=== PATIENT | male | born 1975 | race Caucasian/White ===

== ENCOUNTER 2016-03-18 21:57 | Inpatient (IN) | payer MEDICAID ==
[~2016-03-18] VITALS: Ht 182.9 cm; Wt 84.5 kg
[~2016-03-18 21:57] MED LIST: CLON.5 PO; HYDR-3534 PO; PENI500T PO
[2016-03-18 22:00] VITALS: BP 127/84; PULSE 94; RESP 18; O2SAT 99
[2016-03-18 22:04] VITALS: O2SAT 100
[2016-03-18 22:06] VITALS: BP 128/83; PULSE 100; RESP 16; O2SAT 98
[2016-03-18] MEDS ORDERED: SODIUM CHLOR 0.9% 1000 ML INJ 1,000 ML IV ONE ×2 (22:16→23:45)
[2016-03-18 22:23] VITALS: RESP 16; O2SAT 100
[2016-03-18 22:30] VITALS: BP 109/70; PULSE 72; RESP 16; TEMP 97.2; O2SAT 100
[2016-03-18] MEDS ORDERED: SODIUM CHLORIDE 0.9% FLUSH 5 ML FLUSH IVF PRN (22:30)
[2016-03-18] MEDS ORDERED: ETOMIDATE 20 MG/10 ML VIAL IV PUSH ONE (22:30)
[2016-03-18] MEDS ORDERED: PROPOFOL 1000 MG/100 ML INJ 100 ML IV SCH (22:30)
[2016-03-18] MEDS ORDERED: ACTIVATED CHARCOAL LIQUID 25 GM/120 ML BTL PO/NG ONE (22:30)
[2016-03-18] MEDS ORDERED: ROCURONIUM INJ 50 MG/5 ML VIAL IV ONE (22:30)
--- NOTE | 2016-03-18 22:58 | RADRPT ---
EXAM DATE/TIME: 03/18/2016 20:29 [facility] COMPARISON: No previous studies available for comparison. INDICATIONS : Post intubation. MEDICAL HISTORY : None. SURGICAL HISTORY : None. ENCOUNTER: Initial ACUITY: 1 day PAIN SCORE: Non-responsive. LOCATION: chest FINDINGS: Endotracheal tube tip is in satisfactory position. NG is coiled in the stomach. There is mild basilar dependent airspace disease, left greater than right. Cardiomegaly present. CONCLUSION: 1. Endotracheal tube and nasogastric tube in satisfactory position. Cardiomegaly with basilar airspac e disease, left greater than right. Real Marie MD on March 18, 2016 at 22:55 Board Certified Radiologist. This report was verified electronically.
[2016-03-18 22:59] LABS: AUTOMATED NEUTROPHIL # 2.7 TH/MM3 (1.8-7.7); BASOPHIL # 0.1 TH/MM3 (0-0.2); EOSINOPHIL # 0.1 TH/MM3 (0-0.4); EOSINOPHIL % 1.4 % (0.0-4.0); HEMATOCRIT 39.8 % (39.0-51.0); HEMO FLAGS DIFF FINAL; LYMPH % 52.5 % (9.0-44.0); LYMPHOCYTE # 4.2 TH/MM3 (1.0-4.8); MEAN CELL VOLUME 105.6 FL (80.0-100.0); MEAN CORPUSCULAR HEMOGLOBIN 35.9 PG (27.0-34.0); MONO % 11.9 % (0.0-8.0); NEUT % 33.2 % (16.0-70.0); PLATELET COUNT 243 TH/MM3 (150-450); RED BLOOD COUNT 3.77 MIL/MM3 (4.50-5.90)
[2016-03-18 23:05] LABS: AMPHETAMINE, URINE NEG (NEG); BARBITURATES, URINE NEG (NEG); COCAINE, URINE NEG (NEG)
[2016-03-18 23:15] LABS: ANION GAP 15 MEQ/L (5-15)
[2016-03-18 23:20] LABS: ALKALINE PHOSPHATASE 81 U/L (45-117); ALT (GPT) 57 U/L (12-78); AST (GOT) 174 U/L (15-37); BICARBONATE 21.7 MEQ/L (21.0-32.0); BLOOD UREA NITROGEN 10 MG/DL (7-18); CHLORIDE 108 MEQ/L (98-107); GLOMERULAR FILTRATION RATE 66 ML/MIN (>89); POTASSIUM 3.2 MEQ/L (3.5-5.1); SODIUM (NA) 145 MEQ/L (136-145); TOTAL BILIRUBIN ADULT 0.2 MG/DL (0.2-1.0)
[2016-03-18 23:23] LABS: ACETAMINOPHEN LESS THAN 2.0 MCG/ML (10.0-30.0)
[2016-03-18 23:30] VITALS: BP 117/78; PULSE 56; RESP 16; TEMP 97; O2SAT 100
[2016-03-18] MEDS ORDERED: cefTRIAXone INJ 1,000 MG in SODIUM CHLORIDE 0.9% INJ 100 ML IV ONE (23:45)
[2016-03-18] MEDS ORDERED: AZITHROMYCIN INJ 500 MG in SODIUM CHLOR 0.9% 250 ML INJ 250 ML IV ONE (23:45)
[2016-03-19] VITALS (24 sets, daily range): BP systolic 105–140; BP diastolic 61–89; PULSE 49–98; RESP 11–18; TEMP 96.6–98.4; O2SAT 92–100
--- NOTE | 2016-03-19 00:52 | PD ---
HPI Chief Complaint: Alcohol/Drug Intoxication Time Seen by Provider: 22:16 Travel History International Travel<30 days: No Contact w/Intl Traveler<30days: No Traveled to known affect area: No History of Present Illness HPI 41-year-old male arrives to the ER by EMS. He was found face down in public. Pupils were pinpoint. His respiratory rate was about 6. Narcan was administered and the respiratory rate increased to about 16 or so the ER. His GCS remained 3 throughout the EMS transport and while in the ER. Upon arrival to the ER the patient had wide-open pupils however he had no gag reflex his GCS was 3. His O2 sat was about 99% on nonrebreather mask. Pupils were equal and reactive to light and about 4 mm at baseline. He was intubated shortly following arrival. PFSH Past Medical History Medical History: Unable to Obtain Anxiety: Yes Depression: Yes Diminished Hearing: No Psychiatric: Yes (PTSD) Immunizations Current: Yes Tetanus Vaccination: Unknown Past Surgical History Surgical History: Unable to Obtain Other Surgery: Yes ((R) leg) Social History Alcohol Use: Yes ("occasionally" BEER) Tobacco Use: Yes (4PPD) Substance Use: No (denies) Allergies-Medications (Allergen,Severity, Reaction): Coded Allergies: *MDRO Multi-Drug Resistant Organism (Verified Adverse Reaction, Unknown, 01/05/16) MRSA arm wound 09/2014. Reported Meds & Prescriptions Reported Meds & Active Scripts Active Lortab (Hydrocodone-Acetaminophen) 7.5-325 Mg Tab 1 Tab PO Q4H PRN Penicillin V Potassium 500 Mg Tab 500 Mg PO Q6H 28 Days Reported Klonopin (Clonazepam) 0.5 Mg Tab 0.5 Mg PO DIRECTED Review of Systems ROS Limitations: Clinical Condition Physical Exam Narrative GENERAL: 41-year-old male unresponsive GCS 3, well-nourished well-developed SKIN: Warm and dry. Pyloerection present. HEAD: Atraumatic. Normocephalic. EYES: Pupils equal and round. No pinpoint pupils. ENT: No nasal bleeding or discharge. Mucous membranes pink and moist. NECK: Trachea midline. No JVD. CARDIOVASCULAR: Regular rate and rhythm. No murmur appreciated. RESPIRATORY: No accessory muscle use. Clear to auscultation. Breath sounds equal bilaterally. GASTROINTESTINAL: Abdomen soft, non-tender, nondistended. Hepatic and splenic margins not palpable. MUSCULOSKELETAL: No obvious deformities. No clubbing. No cyanosis. No edema. NEUROLOGICAL: GCS 3. PSYCHIATRIC: Unable to assess. Linear traction torres in the antecubital fossae Data Data Last Documented VS Vital Signs Date Time Temp Pulse Resp B/P Pulse Ox O2 Delivery O2 Flow Rate FiO2 03/18/16 22:30 97.2 72 16 109/70 100 Ventilator 100 Orders Electrocardiogram (03/18/16 22:16) Complete Blood Count With Diff (03/18/16 22:16) Comprehensive Metabolic Panel (03/18/16 22:16) Chest, Single Ap (03/18/16 22:16) Ct Brain W/O Iv Contrast(Rout) (03/18/16 22:16) Arterial Blood Gas (Abg) (03/18/16 22:16) Blood Glucose (03/18/16 22:16) Iv Access Insert/Monitor (03/18/16 22:16) Ecg Monitoring (03/18/16 22:16) Oximetry (03/18/16 22:16) Martina-Gastric Tube Insert/Mon (03/18/16 22:16) Oxygen Administration (03/18/16 22:16) Urinary Catheter Insert/Apply (03/18/16 22:16) Psych Screen (03/18/16 22:16) Charcoal Activated Liq (Actidose-Aqua Li (03/18/16 22:30) Sodium Chloride 0.9% Flush (Ns Flush) (03/18/16 22:30) Sodium Chlor 0.9% 1000 Ml Inj (Ns 1000 M (03/18/16 22:16) Etomidate Inj (Amidate Inj) (03/18/16 22:30) Rocuronium Inj (Zemuron Inj) (03/18/16 22:30) Alcohol (Ethanol) (03/18/16 22:16) Drug Screen, Random Urine (03/18/16 22:16) Tylenol (Acetaminophen) (03/18/16 22:16) Salicylates (Aspirin) (03/18/16 22:16) Troponin I (03/18/16 22:16) Propofol 1000 Mg/100 Ml Inj (Diprivan 10 (03/18/16 22:30) Ceftriaxone Inj (Rocephin Inj) (03/18/16 23:45) Azithromycin Inj (Zithromax Inj) (03/18/16 23:45) Blood Culture (03/18/16 23:33) Sodium Chlor 0.9% 1000 Ml Inj (Ns 1000 M (03/18/16 23:45) Admit Order (Ed Use Only) (03/19/16 00:38) Labs Laboratory Tests Test 03/18/16 03/18/16 22:30 22:40 Urine Opiates Screen POS Urine Barbiturates Screen NEG Urine Amphetamines Screen NEG Urine Benzodiazepines Screen NEG Urine Cocaine Screen NEG Urine Cannabinoids Screen NEG White Blood Count 8.0 TH/MM3 Red Blood Count 3.77 MIL/MM3 Hemoglobin 13.5 GM/DL Hematocrit 39.8 % Mean Corpuscular Volume 105.6 FL Mean Corpuscular Hemoglobin 35.9 PG Mean Corpuscular Hemoglobin 34.0 % Concent Red Cell Distribution Width 13.0 % Platelet Count 243 TH/MM3 Mean Platelet Volume 7.7 FL Neutrophils (%) (Auto) 33.2 % Lymphocytes (%) (Auto) 52.5 % Monocytes (%) (Auto) 11.9 % Eosinophils (%) (Auto) 1.4 % Basophils (%) (Auto) 1.0 % Neutrophils # (Auto) 2.7 TH/MM3 Lymphocytes # (Auto) 4.2 TH/MM3 Monocytes # (Auto) 1.0 TH/MM3 Eosinophils # (Auto) 0.1 TH/MM3 Basophils # (Auto) 0.1 TH/MM3 CBC Comment DIFF FINAL Differential Comment Sodium Level 145 MEQ/L Potassium Level 3.2 MEQ/L Chloride Level 108 MEQ/L Carbon Dioxide Level 21.7 MEQ/L Anion Gap 15 MEQ/L Blood Urea Nitrogen 10 MG/DL Creatinine 1.20 MG/DL Estimat Glomerular Filtration 66 ML/MIN Rate Random Glucose 137 MG/DL Calcium Level 7.9 MG/DL Total Bilirubin 0.2 MG/DL Aspartate Amino Transf 174 U/L (AST/SGOT) Alanine Aminotransferase 57 U/L (ALT/SGPT) Alkaline Phosphatase 81 U/L Troponin I LESS THAN 0.02 NG/ML Total Protein 7.4 GM/DL Albumin 3.7 GM/DL Salicylates Level 3.4 MG/DL Acetaminophen Level LESS THAN 2.0 MCG/ML Ethyl Alcohol Level 281 MG/DL MDM Medical Decision Making Medical Screen Exam Complete: Yes Emergency Medical Condition: Yes Medical Record Reviewed: Yes Differential Diagnosis Opioid overdose, intracranial hemorrhage, nontoxic brain injury, pneumonia, respiratory failure Narrative Course CBC & BMP Diagram 03/18/16 22:40 AST 174 Tn < 0.02 Tox + opiates EtOH 281 Slicylates 3.4 APAP < 2.0 EKG reveals a sinus rhythm with normal axis intervals and a rate of 94 bpm Last [address] 03/18/162215 Signed Impressions: Service Date/Time: March 01:16 - CONCLUSION: Normal examination. Ronn Espinoza MD Chest X-Ray 03/18/162215 Signed Impressions: Service Date/Time: Friday, March 18, 2016 20:29 - CONCLUSION: 1. Endotracheal tube and nasogastric tube in satisfactory position. Cardiomegaly with basilar airspace disease, left greater than right. Real Marie MD Antibiotics started. Blood cultures started. Patient will be admitted to the intelligence manager service. Discussed with Dr. Gaines. Critical Care Narrative Aggregate critical care time was 35 minutes. Time to perform other separately billable procedures was not included in the critical care time. My time did not include minutes spent treating any other patients simultaneously or on activities that did not directly contribute to the patient's treatment. The services I provided to this patient were to treat and/or prevent clinically significant deterioration that could result in: Cardiopulmonary arrest, septic shock I provided critical care services requiring my management, as noted below: Chart data review, documentation time, medication orders and management, vital sign assessments/reviewing monitor data, ordering and reviewing lab tests, ordering and interpreting/reviewing x-rays and diagnostic studies, care of the patient and discussion of the patient with the admitting physicians. Procedures Procedure Narrative After the risks and benefits were discussed the following procedure was performed: INTUBATION: The patient was put in optimal position for the procedure. Rapid sequence intubation was initiated by me using 20 milligrams of etomidate IV and 100 milligrams of rocuronium IV. The patient was intubated with a 8-0 cuffed endotracheal tube. Tube placement was confirmed by visualization of the tube and balloon passing through the cords, capnometry and subsequent chest x-ray. Breath sounds were equal and well aerated bilaterally postintubation. No breath sounds over stomach. Patient tolerated procedure well. Diagnosis Primary Impression: Acute respiratory failure Qualified Code: J96.00 - Acute respiratory failure, unspecified whether with hypoxia or hypercapnia Additional Impressions: Altered mental status, unspecified Alcohol abuse Opiate use Admitting Information Admitting Physician Requests: Bora Perez MD Mar 19, 2016 00:52
[2016-03-19] MEDS ORDERED: SODIUM CHLORIDE 0.9% FLUSH 5 ML FLUSH IV FLUSH PRN (01:00)
[2016-03-19] MEDS ORDERED: SENNOSIDES 8.6 MG TAB PO PRN (01:00)
[2016-03-19] MEDS ORDERED: MISCELLANEOUS NURSING INFORMATION XX SCH (01:00)
[2016-03-19] MEDS ORDERED: fentaNYL DRIP 250 ML IV SCH (01:00)
[2016-03-19] MEDS ORDERED: CHLORHEXIDINE GLUCONATE 2 % 1 PACK (2 CLOTHS) TOP PRN (01:00)
[2016-03-19] MEDS ORDERED: ONDANSETRON HCL 4 MG/2 ML VIAL IV PRN (01:00)
[2016-03-19] MEDS ORDERED: THIAMINE INJ 100 MG in SODIUM CHLORIDE 0.9% INJ 100 ML IV ONE (01:00)
[2016-03-19] MEDS ORDERED: GLUCAGON 1 MG/ML VIAL OTHER PRN (01:00)
[2016-03-19] MEDS ORDERED: DEXTROSE 50% IN WATER 50 ML VIAL(D50) IV PUSH PRN (01:00)
[2016-03-19] MEDS ORDERED: ACETAMINOPHEN 325 MG TAB PO PRN (01:00)
--- NOTE | 2016-03-19 01:14 | HHI.HP ---
[facility] Service Critical Care Medicine Primary Care Physician Unknown Admission Diagnosis Unresponsive/AMS, Opioid OD Diagnosis: (1) Acute respiratory failure Diagnosis: Principal (2) Macrocytosis without anemia Diagnosis: Principal (3) Opiate use Diagnosis: Principal (4) Hypokalemia Diagnosis: Principal (5) Altered mental status, unspecified Diagnosis: Principal Chief Complaint: Found unresponsive [place] Travel History International Travel<30 Days: No Contact w/Intl Traveler <30 Da: No Traveled to Known Affected Are: No History of Present Illness This is a 41-year-old male. Date of admission 03/19/2016 past medical history includes posterior max stress disorder/depression. No history of alcohol and polysubstance abuse per records. He arrives to [facility] He was found face down in public an undisclosed location. He was given Narcan 0.4 mg 5 and routine was Ambu bag. His GCS remained 3 throughout the EMS transport and while in the ER. Upon arrival to the ER the patient had wide-open pupils however he had no gag reflex his GCS was 3. His O2 sat was about 99% on nonrebreather mask. Pupils were equal and reactive to light and about 4 mm at baseline. He was intubated shortly following arrival using 20 mg etomidate and 50 rocuronium. Laboratories revealed a macrocytosis and hypokalemia otherwise unremarkable. Toxin positive for EtOH of [address] head currently pending. 6 revealed bilateral lobe open fractures possibly aspiration. He received 500 mg azithromycin 1 g Rocephin ED for antibiotic's. Blood cultures 2 were drawn. We are asked to admit Review of Systems ROS Limitations: Intubated Past Family Social History Allergies: Coded Allergies: *MDRO Multi-Drug Resistant Organism (Verified Adverse Reaction, Unknown, 01/05/16) MRSA arm wound 09/2014. Past Medical History Posttraumatic stress disorder EtOH use Depression Opiate use Past Surgical History Right leg unknown type Acute nasal fracture Active Ordered Medications Reviewed in EMR Family History Noncontributory/not documented Social History Positive EtOH use. Positive opiate use. Physical Exam Vital Signs Vital Signs Date Time Temp Pulse Resp B/P Pulse Ox O2 Delivery O2 Flow Rate FiO2 03/18/16 22:30 97.2 72 16 109/70 100 Ventilator 100 03/18/16 22:23 16 100 Ventilator 35 03/18/16 22:23 100 Ventilator 35 03/18/16 22:12 100 03/18/16 22:06 98 99 Bag Valve 03/18/16 22:06 100 16 128/83 98 100 03/18/16 22:04 100 100 03/18/16 22:00 94 18 127/84 99 Physical Exam GENERAL: 41-year-old male, critically ill currently orotracheally intubated SKIN: Warm and dry. No rash HEAD: Atraumatic. Normocephalic. EYES: Pupils equal and round about 4 mm bilaterally and sluggish. No scleral icterus. No injection or drainage. ENT: No nasal bleeding or discharge. Mucous membranes pink and moist. NECK: Trachea midline. No JVD. Right EJ in place CARDIOVASCULAR: Tachycardic, RR. S1, S2. No S4. No murmur RESPIRATORY: Coarse crackles are appreciated bilaterally. No wheeze Breath sounds equal bilaterally. GASTROINTESTINAL: Abdomen soft, non-tender, nondistended. Hypoactive bowel sounds are present MUSCULOSKELETAL: Extremities without drift and peripheral edema. No obvious deformities. NEUROLOGICAL: Positive corneal reflex. Positive pupillary reflex. Positive gag. Downward toes. Patient does withdraw to pain/noxious stimuli in lower extremities. Not really upper extremities. Laboratory Laboratory Tests Test 03/18/16 03/18/16 22:30 22:40 Urine Opiates Screen POS Urine Barbiturates Screen NEG Urine Amphetamines Screen NEG Urine Benzodiazepines Screen NEG Urine Cocaine Screen NEG Urine Cannabinoids Screen NEG White Blood Count 8.0 Red Blood Count 3.77 Hemoglobin 13.5 Hematocrit 39.8 Mean Corpuscular Volume 105.6 Mean Corpuscular Hemoglobin 35.9 Mean Corpuscular Hemoglobin 34.0 Concent Red Cell Distribution Width 13.0 Platelet Count 243 Mean Platelet Volume 7.7 Neutrophils (%) (Auto) 33.2 Lymphocytes (%) (Auto) 52.5 Monocytes (%) (Auto) 11.9 Eosinophils (%) (Auto) 1.4 Basophils (%) (Auto) 1.0 Neutrophils # (Auto) 2.7 Lymphocytes # (Auto) 4.2 Monocytes # (Auto) 1.0 Eosinophils # (Auto) 0.1 Basophils # (Auto) 0.1 CBC Comment DIFF FINAL Differential Comment Sodium Level 145 Potassium Level 3.2 Chloride Level 108 Carbon Dioxide Level 21.7 Anion Gap 15 Blood Urea Nitrogen 10 Creatinine 1.20 Estimat Glomerular Filtration 66 Rate Random Glucose 137 Calcium Level 7.9 Total Bilirubin 0.2 Aspartate Amino Transf 174 (AST/SGOT) Alanine Aminotransferase 57 (ALT/SGPT) Alkaline Phosphatase 81 Troponin I LESS THAN 0.02 Total Protein 7.4 Albumin 3.7 Salicylates Level 3.4 Acetaminophen Level LESS THAN 2.0 Ethyl Alcohol Level 281 Date/Time Procedure Status Source Growth 03/18/16 23:40 Aerobic Blood Culture Received Blood Peripheral Pending 03/18/16 23:40 Anaerobic Blood Culture Received Blood Peripheral Pending Result Diagram: 03/18/16223903/18/162239 Imaging Last Impressions Chest X-Ray 03/18/162215 Signed Impressions: Service Date/Time: Friday, March 18, 2016 20:29 - CONCLUSION: 1. Endotracheal tube and nasogastric tube in satisfactory position. Cardiomegaly with basilar airspace disease, left greater than right. Real Marie MD Assessment and Plan Assessment and Plan Neuro/Psych: Altered mental status EtOH Positive opiate toxicology screen History of depression Patient is currently on propofol/fentanyl drips for sedation/analgesia while intubated Goal of RASS -2 Daily sedation vacation EtOH screen was 281. Started on thiamine/folate and multivitamin CT head pending. EEG ordered. Neuro checks per protocol CV: Sinus bradycardia Likely secondary propofol. Currently on normal saline at 84 cc an hour. Currently not requiring vasopressors and/or antihypertensives. Resp: Acute hypoxemic respiratory failure ACV 16/550/5/100 Ventilator bundle Bronchodilator therapy every 6 hours and as needed Follow-up ABG post intubation pending Possible aspiration component to respiratory failure. See ID GI: Will start on vital high protein goal 40 cc an hour. Protonix for GI prophylaxis Colace/as needed Senokot for bowel regimen : Jung will be placed for accurate I's nose any critically ill patient Endo: Sliding-scale insulin with Accu-Cheks every 6 hours to maintain euglycemia. Low regimen Renal: Creatinine currently within normal limits. Accurate I's and O's Monitor urine output closely Heme: Macrocytosis Follow CBC/coags. Monitor trends ID: Likely aspiration pneumonia Blood cultures 2, UA sputum and urine ordered. Ronaldo Rocephin/Zithromax in ED. Will start on Unasyn day #1 for aspiration FEN: Hypokalemia Replace electrolytes per ICU protocol see orders. Recheck in a.m. MSK: History of nasal fracture PT evaluate and treat Access - Utilize peripheral IV. Central line if indicated Prophylaxis - GI - Protonix - DVT - SCD/holding off pharmacological prophylaxis until after CT head Critical Care: The total critical care time was 55 minutes. Time to perform other separately billable procedures was not included in the critical care time. Problem Qualifiers (1) Acute respiratory failure: Qualified Code: J96.00 - Acute respiratory failure, unspecified whether with hypoxia or hypercapnia Kev Gaines MD Mar 19, 2016 01:14
[2016-03-19] MEDS ORDERED: MAGNESIUM SULFATE INJ 4 GM in SODIUM CHLORIDE 0.9% INJ 92 ML IV PRN (01:15)
[2016-03-19] MEDS ORDERED: SODIUM PHOSPHATE INJ 30 MMOL in SODIUM CHLOR 0.9% 250 ML INJ 240 ML IV PRN (01:15)
[2016-03-19] MEDS ORDERED: POTASSIUM CHLOR 40 MEQ PREMIX 100 ML IV PRN ×2 (01:15)
[2016-03-19] MEDS ORDERED: MAGNESIUM OXIDE 400 MG TAB PO PRN (01:15)
[2016-03-19] MEDS ORDERED: POTASSIUM CHLOR 20 MEQ PREMIX 100 ML IV PRN (01:15)
[2016-03-19] MEDS ORDERED: POTASSIUM PHOSPHATE MONOBASIC 500 MG TAB PO PRN (01:15)
[2016-03-19] MEDS ORDERED: POTASSIUM CL 40 MEQ/30 ML LIQ UDC PO ONE (01:15)
[2016-03-19] MEDS ORDERED: MAGNESIUM SULFATE INJ 2 GM in SODIUM CHLORIDE 0.9% INJ 96 ML IV PRN (01:15)
[2016-03-19] MEDS ORDERED: POTASSIUM PHOSPHATE MONOBASIC 500 MG TAB PO/TUBE PRN (01:15)
[2016-03-19] MEDS ORDERED: POTASSIUM CL 40 MEQ/30 ML LIQ UDC PO/TUBE PRN ×2 (01:15)
[2016-03-19] MEDS ORDERED: POTASSIUM PHOSPHATE INJ 30 MMOL in SODIUM CHLOR 0.9% 250 ML INJ 250 ML IV PRN (01:15)
--- NOTE | 2016-03-19 01:59 | RADRPT ---
EXAM DATE/TIME: 03/19/2016 01:16 [facility] COMPARISON: CT BRAIN W/O CONTRAST, January 05, 2016, 14:00. INDICATIONS : Found unresponsive. RADIATION DOSE: 42.16 CTDIvol (mGy) MEDICAL HISTORY : None SURGICAL HISTORY : None. ENCOUNTER: Initial ACUITY: 1 day PAIN SCALE: Non-responsive LOCATION: cranial TECHNIQUE: Multiple contiguous axial images were obtained of the head. Using automated exposure control and adj ustment of the mA and/or kV according to patient size, radiation dose was kept as low as reasonably a chievable to obtain optimal diagnostic quality images. FINDINGS: CEREBRUM: The ventricles are normal for age. No evidence of midline shift, mass lesion, hemorrhage or acute in farction. No extra-axial fluid collections are seen. POSTERIOR FOSSA: The cerebellum and brainstem are intact. The 4th ventricle is midline. The cerebellopontine angle i s unremarkable. EXTRACRANIAL: The visualized portion of the orbits is intact. SKULL: The calvaria is intact. No evidence of skull fracture. CONCLUSION: Normal examination. Ronn Espinoza MD on March 19, 2016 at 1:57 Board Certified Radiologist. This report was verified electronically.
[2016-03-19] MEDS: SODIUM CHLOR 0.9% 1000 ML INJ 1,000 ML IV SCH ×2 (02:57→12:42)
[2016-03-19] MEDS: AMPICILLIN-SULBACTAM INJ 3 GM in SODIUM CHLORIDE 0.9% INJ 100 ML IV SCH ×4 (02:58→18:43)
[2016-03-19] MEDS: RESP: ALBUTEROL 2.5 MG/IPRATROPIUM 0.5 MG NEB (SCH) INH ×4 (03:29→20:37)
[2016-03-19] MEDS: CHLORHEXIDINE GLUCONATE 2 % 1 PACK (2 CLOTHS) TOP SCH (03:55)
[2016-03-19] MEDS: INSULIN NovoLIN REGULAR SUPPLEMENTAL SCALE SQ SCH ×3 (06:00→18:00)
[2016-03-19 07:06] LABS: INDIRECT BILIRUBIN 0.2 MG/DL (0.0-0.8); TOTAL BILIRUBIN ADULT 0.3 MG/DL (0.2-1.0)
--- NOTE | 2016-03-19 08:15 | EKG ---
Date Performed: 03/18/2016 Time Performed: 22:07:11 PTAGE: 41 years EKG: Sinus rhythm NORMAL ECG NO PREVIOUS TRACING DOCTOR: Christian Walton Interpretating Date/Time 03/19/2016 08:13:39
[2016-03-19] MEDS: SODIUM CHLORIDE 0.9% FLUSH 5 ML FLUSH IV FLUSH SCH ×2 (09:00→20:57)
[2016-03-19] MEDS ORDERED: PANTOPRAZOLE SODIUM 40 MG VIAL IV SCH (09:00)
[2016-03-19] MEDS: ARTIFICIAL TEARS OPTH SOLN 15 ML BTL EACH EYE SCH ×3 (09:00→18:00)
[2016-03-19] MEDS: MULTIVITAMIN TAB PO SCH (09:00)
[2016-03-19] MEDS: DOCUSATE SODIUM 100 MG CAP PO SCH ×2 (09:00→20:57)
[2016-03-19] MEDS: FOLIC ACID 1 MG TAB PO SCH (09:00)
[2016-03-19] MEDS ORDERED: fentaNYL DRIP 250 ML ONE (09:21)
[2016-03-19] MEDS: THIAMINE INJ 100 MG in SODIUM CHLORIDE 0.9% INJ 100 ML IV SCH (09:37)
[2016-03-19] MEDS: PROPOFOL 1000 MG/100 ML INJ 100 ML IV SCH ×2 (09:56→12:06)
[2016-03-19] MEDS: POTASSIUM CHLOR 20 MEQ PREMIX 100 ML IV PRN (13:22)
[2016-03-19] MEDS ORDERED: LACTATED RINGER'S 1000 ML INJ 1,000 ML IV ONE (14:00)
[2016-03-19] MEDS: DEXMEDETOMIDINE INJ 50 ML IV SCH ×5 (14:21→23:57)
[2016-03-19] MEDS ORDERED: cloNIDine HCL 0.1 MG TAB PO SCH (15:00)
--- NOTE | 2016-03-19 15:27 | HHI.PR ---
Subjective Remarks Evaluated patient around 1330. Patient significantly agitated with delirium. following commands, but CAM +. pulling at restraints. very hypertensive. mild oliguria. He was NSR 70s, hypertensive in 150s SBP, tachypneic, agitated. I remained with the patient while we adjusted his sedation regimen. I placed the patient on spontaneous breathing trial. I personally bolused the patient with precedex. Active Problems: Agitated Delirium Oliguria Acute Intravascular Hypovolemia Plan: -- start precedex at 2mcg/kg/min -- haldol 5mg iv q 1h prn for agitation -- start valium 10mg po q8h scheduled for concern for benzo withdraw -- oxycodone 5mg po q4h prn for opiate withdraw -- clonidine 0.1mg po q8h for control of withdraw symptoms -- place patient on SBT. may meet criteria for extubation if his agitation is under control. -- 1L LR bolus for oliguria and hypovolemia. continue NS @ 84cc/hr. -- continue strict i/o's. This note represents an additional 21 minutes of critical care time in addition to any time previously documented on this patient. this time is exclusive of procedures. Krunal Atkinson MD Mar 19, 2016 15:27
[2016-03-19] MEDS ORDERED: HYDROmorphone HCL PF 1 MG/ML VIAL IV PUSH PRN (15:30)
[2016-03-19] MEDS: DIAZEPAM 10 MG TAB PO SCH ×2 (15:36→20:57)
[2016-03-19] MEDS: HALOPERIDOL LACTATE 5 MG/ML AMP IV PRN ×2 (15:36→23:50)
--- NOTE | 2016-03-19 16:11 | MG ---
cc: DOUG FRANCISCO Lab No: [id number] Date: 03/19/16 Age: Sex: M Race: Fentanyl, intubated, down in public. Narcan, depression, anxiety, cut wrists, ceftriaxone, ampicillin. An 8 Hz 60 microvolt diffuse rhythm is seen. The recording overall is synchronous and symmetric. No hemisphere asymmetries are noted. No epileptiform or seizure activity is seen. Minimal diffuse theta slowing to 7 Hz is occasionally noted. Photic stimulation and hyperventilation not performed. IMPRESSION Minimal diffuse slowing, otherwise, a normal electroencephalogram. No seizure activity was noted. Clinical correlation is needed. MD KATHIE Zavaleta/ /2:53 PM /4:05 PM
[2016-03-19] MEDS: cloNIDine HCL 0.2 MG TAB PO SCH (20:57)
[2016-03-20] VITALS (18 sets, daily range): BP systolic 122–157; BP diastolic 87–98; PULSE 56–90; RESP 16–35; TEMP 97.5–98.8; O2SAT 89–99
[2016-03-20] MEDS: SODIUM CHLOR 0.9% 1000 ML INJ 1,000 ML IV SCH ×2 (00:12→12:12)
[2016-03-20] MEDS: AMPICILLIN-SULBACTAM INJ 3 GM in SODIUM CHLORIDE 0.9% INJ 100 ML IV SCH ×4 (00:13→19:23)
[2016-03-20] MEDS: HALOPERIDOL LACTATE 5 MG/ML AMP IV PRN (01:28)
[2016-03-20] MEDS ORDERED: FLUMAZENIL 0.5 MG/5 ML VIAL IV PUSH PRN (02:15)
[2016-03-20] MEDS ORDERED: LORazepam 2 MG TAB PO PRN (02:15)
[2016-03-20] MEDS ORDERED: LORazepam 2 MG/ML VIAL IV PUSH PRN ×4 (02:15)
[2016-03-20] MEDS ORDERED: LORazepam 1 MG TAB PO PRN (02:15)
[2016-03-20] MEDS ORDERED: PROPOFOL 1000 MG/100 ML INJ 100 ML ONE ×2 (02:52→09:27)
[2016-03-20] MEDS ORDERED: ETOMIDATE 40 MG/20 ML VIAL ONE (02:57)
--- NOTE | 2016-03-20 03:16 | PD.PROCEDR ---
Procedure Note Procedure DATE: 03/20/16 PROCEDURE: Orotracheal intubation INDICATION: Acute hypoxemic respiratory failure/EtOH withdrawal DETAILS OF PROCEDURE The patient was placed in optimal position and preoxygenated with 100% FiO2 via bag valve mask. At the start oxygen saturation was 90%. The patient was administered 20 milligrams etomidate IV and milligrams rocuronium IV. I entered the oropharynx with a size 4 GVL glidescope blade and obtained a grade 3 view of the airway. On single attempt a size 8.0 cuffed endotracheal tube was passed through the vocal cords. Correct tube location was confirmed with end tidal CO2 detector and by auscultating over bilateral lung dillard. The endotracheal tube was secured with adhesive tape at a depth of 24 cm at the lips. The patient was connected to the ventilator. The patient tolerated the procedure well without any apparent complications. Oxygen saturations were maintained greater than 95% all times. STAT chest x-ray pending at time of dictation. Kev Gaines MD Mar 20, 2016 03:16
[2016-03-20] MEDS ORDERED: ROCURONIUM INJ 100 MG/10 ML VIAL IV ONE (03:30)
[2016-03-20] MEDS ORDERED: ETOMIDATE 40 MG/20 ML VIAL IV PUSH ONE (03:30)
[2016-03-20] MEDS ORDERED: PROPOFOL 1000 MG/100 ML INJ 100 ML IV SCH (03:30)
[2016-03-20] MEDS: RESP: ALBUTEROL 2.5 MG/IPRATROPIUM 0.5 MG NEB (SCH) INH ×4 (03:36→21:23)
--- NOTE | 2016-03-20 03:56 | RADRPT ---
EXAM DATE/TIME: 03/20/2016 03:33 [facility] COMPARISON: CHEST SINGLE AP, March 18, 2016, 20:29. INDICATIONS : Pt short of breath. Evaluate ETT placement. MEDICAL HISTORY : None. SURGICAL HISTORY : None. ENCOUNTER: Subsequent ACUITY: 2 days PAIN SCORE: Non-responsive. LOCATION: Bilateral chest FINDINGS: There is increased haziness of both lungs, especially mid and lower lungs. Small, bilateral pleural e ffusions are suspected as well. No pneumothorax. Heart size stable, upper limits of normal. Patient remains intubated. Endotracheal tube tip not significantly changed, approximately 3.5 cm abov e the fatemeh. Previously seen nasogastric tube is been removed. CONCLUSION: 1. Developing consolidation and small effusions of both bases. 2. No significant change endotracheal tube position with the tip about 3.5 cm above the fatemeh. Nasog astric tube is been remain. Clifford Solis MD on March 20, 2016 at 3:52 Board Certified Radiologist. This report was verified electronically.
[2016-03-20] MEDS: CHLORHEXIDINE GLUCONATE 2 % 1 PACK (2 CLOTHS) TOP SCH (04:00)
[2016-03-20] MEDS: fentaNYL DRIP 250 ML IV SCH (04:16)
[2016-03-20 04:50] LABS: AUTOMATED NEUTROPHIL # 6.5 TH/MM3 (1.8-7.7); BASOPHIL # 0.1 TH/MM3 (0-0.2); BASOPHIL % 1.1 % (0.0-2.0); EOSINOPHIL # 0.2 TH/MM3 (0-0.4); EOSINOPHIL % 1.8 % (0.0-4.0); HEMATOCRIT 35.6 % (39.0-51.0); HEMO FLAGS DIFF FINAL; LYMPH % 27.9 % (9.0-44.0); LYMPHOCYTE # 2.9 TH/MM3 (1.0-4.8); MEAN CELL VOLUME 103.6 FL (80.0-100.0); MEAN CORPUSCULAR HEMOGLOBIN 35.9 PG (27.0-34.0); MEAN CORPUSCULAR HGB CONC 34.7 % (32.0-36.0); MONO % 6.6 % (0.0-8.0); NEUT % 62.6 % (16.0-70.0); PLATELET COUNT 155 TH/MM3 (150-450); RED BLOOD COUNT 3.44 MIL/MM3 (4.50-5.90); RED CELL DISTRIBUTION WIDTH 12.7 % (11.6-17.2); WHITE BLOOD COUNT 10.4 TH/MM3 (4.0-11.0)
[2016-03-20 04:56] LABS: APTT (PATIENT) 28.1 SEC (24.3-30.1); PROTHROMBIN TIME - PATIENT 11.3 SEC (9.8-11.6)
[2016-03-20 05:26] LABS: BLOOD GAS BASE EXCESS -0.3 mmol/L (-2-2); BLOOD GAS CARBOXYHEMOGLOBIN 1.3 % (0-4); BLOOD GAS HCO3 24 mmol/L (22-26); BLOOD GAS METHEMOGLOBIN 0.9 % (0-2); BLOOD GAS O2 HGB SATURATION 97 % (90-100); BLOOD GAS OXYGEN CONTENT 16.6 Vol % (12.0-20.0); BLOOD GAS PCO2 40 mmHg (38-42); BLOOD GAS PO2 131 mmHg (61-120); TEMP CORR TO 98.6
[2016-03-20 05:27] LABS: CRITICAL VALUE NO; OXYGEN DEVICE VENTILATOR
[2016-03-20 05:28] LABS: DRAW SITE LT RADIAL; FIO2 100 %; NUMBER OF ARTERIAL PUNCTURES 1; STAT NO; ULNAR PULSE PRESENT; VENT SETTINGS PRVC/AC
[2016-03-20 05:36] LABS: ALKALINE PHOSPHATASE 73 U/L (45-117); ALT (GPT) 37 U/L (12-78); ANION GAP 10 MEQ/L (5-15); AST (GOT) 64 U/L (15-37); BICARBONATE 23.9 MEQ/L (21.0-32.0); BLOOD UREA NITROGEN 7 MG/DL (7-18); CHLORIDE 105 MEQ/L (98-107); GLOMERULAR FILTRATION RATE 95 ML/MIN (>89); MAGNESIUM 1.2 MG/DL (1.5-2.5); SODIUM (NA) 139 MEQ/L (136-145); TOTAL BILIRUBIN ADULT 1.2 MG/DL (0.2-1.0)
[2016-03-20 05:41] LABS: POTASSIUM 2.9 MEQ/L (3.5-5.1)
[2016-03-20] MEDS: INSULIN NovoLIN REGULAR SUPPLEMENTAL SCALE SQ SCH ×4 (06:00→17:15)
--- NOTE | 2016-03-20 06:10 | RADRPT ---
EXAM DATE/TIME: 03/20/2016 05:10 [facility] COMPARISON: CHEST SINGLE AP, March 20, 2016, 3:33. INDICATIONS : Evaluate for respiratory failure. OG placement. MEDICAL HISTORY : None. SURGICAL HISTORY : None. ENCOUNTER: Subsequent ACUITY: 2 days PAIN SCORE: Non-responsive. LOCATION: Bilateral chest FINDINGS: Bilateral perihilar and basilar infiltrates are again seen not significantly changed. Small, bilatera l pleural effusions are also suspected. No pneumothorax demonstrated. Endotracheal tube tip is approximately 3.5 cm above the fatemeh, unchanged. An orogastric tube is been placed with tip in the stomach, side hole a few centimeters below the GE junction. CONCLUSION: No significant change mild bilateral perihilar and basilar infiltrates. Endotracheal tube tip appropr iately positioned also unchanged. No orogastric tube with tip in the stomach. Clifford Solis MD on March 20, 2016 at 6:07 Board Certified Radiologist. This report was verified electronically.
[2016-03-20] MEDS: QUEtiapine FUMARATE 100 MG TAB PO SCH ×3 (06:15→21:52)
[2016-03-20] MEDS: DIAZEPAM 10 MG TAB PO SCH ×3 (06:38→21:52)
[2016-03-20] MEDS: cloNIDine HCL 0.2 MG TAB PO SCH (06:38)
[2016-03-20] MEDS: POTASSIUM CHLOR 20 MEQ PREMIX 100 ML IV PRN ×2 (06:38→09:17)
[2016-03-20] MEDS: SODIUM CHLORIDE 0.9% FLUSH 5 ML FLUSH IV FLUSH SCH ×2 (09:00→19:24)
--- NOTE | 2016-03-20 09:22 | HHI.CCPN ---
Subjective Remarks/Hospital Course Hospital Course: This is a 41-year-old male. Date of admission 03/19/2016 past medical history includes posterior max stress disorder/depression. No history of alcohol and polysubstance abuse per records. He arrives to [facility] He was found face down in public an undisclosed location. He was given Narcan 0.4 mg 5 and routine was Ambu bag. His GCS remained 3 throughout the EMS transport and while in the ER. Upon arrival to the ER the patient had wide-open pupils however he had no gag reflex his GCS was 3. His O2 sat was about 99% on nonrebreather mask. Pupils were equal and reactive to light and about 4 mm at baseline. He was intubated shortly following arrival using 20 mg etomidate and 50 rocuronium. Laboratories revealed a macrocytosis and hypokalemia otherwise unremarkable. Toxin positive for EtOH of [address] head currently pending. 6 revealed bilateral lobe open fractures possibly aspiration. He received 500 mg azithromycin 1 g Rocephin ED for antibiotic's. Blood cultures 2 were drawn. We are asked to admit Subjective: 03/20: extubated yesterday after his mental status improved. However, overnight, became acutely agitated, likely withdrawing from substances, then became hypoxic. required reintubation. This morning, still severely agitated despite fentanyl and propofol. Objective Vital Signs Date Time Temp Pulse Resp B/P Pulse Ox O2 Delivery O2 Flow Rate FiO2 03/20/16 07:44 96 70 03/20/16 07:00 Mechanical Ventilator 03/20/16 06:00 70 03/20/16 04:00 98.8 16 157/98 03/19/16 23:38 12.00 Intake and Output 03/19/16 03/19/16 03/20/16 08:00 16:00 00:00 Intake Total 1313 ml 1773 ml Output Total 400 ml 350 ml 250 ml Balance -400 ml 963 ml 1523 ml Result Diagram: 03/20/16 0422 03/20/16 0422 Other Results Laboratory Tests Test 03/20/16 05:14 Blood Gas Puncture Site LT RADIAL Blood Gas Patient Temperature 98.6 Blood Gas HCO3 24 mmol/L (22-26) Blood Gas Base Excess -0.3 mmol/L (-2-2) Blood Gas Oxygen Saturation 97 % (90-100) Arterial Blood pH 7.39 (7.380-7.420) Arterial Blood Partial 40 mmHg (38-42) Pressure CO2 Arterial Blood Partial 131 mmHg Pressure O2 (61-120) Arterial Blood Oxygen Content 16.6 Vol % (12.0-20.0) Arterial Blood 1.3 % (0-4) Carboxyhemoglobin Arterial Blood Methemoglobin 0.9 % (0-2) Blood Gas Hemoglobin 12.0 G/DL (12.0-16.0) Oxygen Delivery Device VENTILATOR Blood Gas Ventilator Setting PRVC/AC Blood Gas Inspired Oxygen 100 % Imaging Last Impressions Chest X-Ray 03/18/16 4015 Signed Impressions: Service Date/Time: Friday, March 18, 2016 20:29 - CONCLUSION: 1. Endotracheal tube and nasogastric tube in satisfactory position. Cardiomegaly with basilar airspace disease, left greater than right. Real Marie MD Objective Remarks GENERAL: 41-year-old male, critically ill currently orotracheally intubated SKIN: Warm and dry. No rash HEENT: normocephalic, atraumatic. pupils 3mm, equal, reactive. mucous membranes moist. NECK: Trachea midline. No JVD. CARDIOVASCULAR: Tachycardic, RR. no appreciable murmurs RESPIRATORY: Coarse crackles are appreciated bilaterally. No wheeze Breath sounds equal bilaterally. GASTROINTESTINAL: Abdomen soft, non-tender, nondistended. No guarding. MUSCULOSKELETAL: Extremities without edema. No obvious deformities. distal pulses 2+ NEUROLOGICAL: RASS +2. CAM +. moves all extremities spontaneously. does not follow commands this morning. A/P Assessment and Plan Assessment: 41yM initially found unresponsive with +etoh, opiate, hospital course complicated by severe and life-threatening agitated delirium likely from substance withdraw, and acute hypoxic respiratory failure. He remains critically ill this morning. Neuro/Psych: Severe life-threatening agitated delirium EtOH Positive opiate toxicology screen History of depression Substance withdraw, possible etoh withdraw. Goal of RASS -2 Propofol/fentanyl for goal RASS, may go up to 100 mcg/kg/min of propfol for goal RASS. -- start Seroquel 100mg po q8hr for agitated delirium -- haldol 5mg iv q1h prn for agitation -- increase clonidine to 0.3mg po q8hr -- may need to add guanfacine for additional alpha-2 agonism to help control withdraw symptoms -- increase valium to 20 po q8hr scheduled -- oxycodone 10 po q4hr amanda to help with possible opiate withdraw EtOH screen was 281. Started on thiamine/folate and multivitamin CV: Sinus tachycardia Likely secondary to withdraw symptoms. Currently on normal saline at 84 cc an hour. Currently not requiring vasopressors and/or antihypertensives. Resp: Acute hypoxemic respiratory failure ACV Ventilator bundle Bronchodilator therapy every 6 hours and as needed Possible aspiration component to respiratory failure. See ID GI: Acute protein calorie malnutrition-mild restart TF, Jevity 1.5 at goal. Protonix for GI prophylaxis Colace/as needed Senokot for bowel regimen : Jung will be placed for accurate I's nose any critically ill patient Endo: Sliding-scale insulin with Accu-Cheks every 6 hours to maintain euglycemia. Low regimen Renal: Creatinine currently within normal limits. Accurate I's and O's Monitor urine output closely Heme: Macrocytosis Follow CBC/coags. Monitor trends ID: Likely aspiration pneumonia Blood cultures 2, UA sputum and urine ordered. Ronaldo Rocephin/Zithromax in ED. continue Unasyn day #2 for aspiration FEN: Hypokalemia Replace electrolytes per ICU protocol. MSK: History of nasal fracture PT evaluate and treat Access - Utilize peripheral IV. Central line if indicated Prophylaxis - GI - Protonix - DVT - SCD/Lovenox. Critical Care: The total critical care time was 57 minutes. Time to perform other separately billable procedures was not included in the critical care time. Krunal Atkinson MD Mar 20, 2016 09:22
[2016-03-20] MEDS: PROPOFOL 1000 MG/100 ML INJ 100 ML IV SCH ×4 (09:56→22:23)
[2016-03-20] MEDS: THIAMINE INJ 100 MG in SODIUM CHLORIDE 0.9% INJ 100 ML IV SCH (09:57)
[2016-03-20] MEDS: ARTIFICIAL TEARS OPTH SOLN 15 ML BTL EACH EYE SCH ×3 (09:57→16:35)
[2016-03-20] MEDS: MULTIVITAMIN TAB PO SCH (09:57)
[2016-03-20] MEDS: oxyCODONE HCL ORAL CONC 20 MG/ML SYRINGE PO SCH ×4 (09:57→19:23)
[2016-03-20] MEDS: CHLORHEXIDINE 0.12% (ORAL KIT) 15 ML CUP MT SCH ×2 (09:57→19:24)
[2016-03-20] MEDS: DOCUSATE SODIUM 100 MG CAP PO SCH ×2 (09:57→21:52)
[2016-03-20] MEDS: FOLIC ACID 1 MG TAB PO SCH (09:57)
[2016-03-20] MEDS: ENOXAPARIN SODIUM 40 MG/0.4 ML SYRINGE SQ SCH (09:59)
[2016-03-20] MEDS: cloNIDine HCL 0.3 MG TAB PO SCH ×2 (14:00→21:53)
--- NOTE | 2016-03-20 14:54 | EC ---
Study Study Date:03/20/2016 STUDY CONCLUSIONS SUMMARY - Left ventricle: The cavity size was normal. Wall thickness was normal. Systolic function was mildly to moderately reduced. The estimated ejection fraction was in the range of 40% to 45%. Wall motion was normal; there were no regional wall motion abnormalities. - Aortic valve: Valve area: 2.22cm^2 (Vmax). - Mitral valve: Mild regurgitation. - Tricuspid valve: Mild regurgitation. - Pericardium, extracardiac: There was a left pleural effusion. If LV function is below 40, please consider prescribing an ACEI or ARB or document rationale for non-use. PROCEDURE DATA STUDY STATUS: Elective. Procedure: Transthoracic echocardiography. Image quality was good. Scanning was performed from the parasternal, apical, and subcostal acoustic windows. Study completion: The patient tolerated the procedure well. Transthoracic echocardiography. M-mode, complete 2D, complete spectral Doppler, and color Doppler. Height: Height: 72in. Weight: Weight: 197.6lb. Body mass index: BMI: 26.9kg/m^2. Body surface area: BSA: 2.12m^2. Patient status: Inpatient. CARDIAC ANATOMY LEFT VENTRICLE: The cavity size was normal. Wall thickness was normal. Systolic function was mildly to moderately reduced. The estimated ejection fraction was in the range of 40% to 45%. Wall motion was normal; there were no regional wall motion abnormalities. AORTIC VALVE: Trileaflet; normal thickness leaflets. Doppler: Transvalvular velocity was within the normal range. There was no stenosis. No regurgitation. Valve area: 2.22cm^2 (Vmax). Indexed valve area: 1.05cm^2/m^2 (Vmax). AORTA: Aortic root: The aortic root was normal in size. MITRAL VALVE: Structurally normal valve. Doppler: Transvalvular velocity was within the normal range. There was no evidence for stenosis. Mild regurgitation. LEFT ATRIUM: The atrium was normal in size. RIGHT VENTRICLE: The cavity size was normal. Wall thickness was normal. PULMONIC VALVE: Doppler: Transvalvular velocity was within the normal range. There was no evidence for stenosis. No regurgitation. TRICUSPID VALVE: Structurally normal valve. Doppler: Transvalvular velocity was within the normal range. Mild regurgitation. PULMONARY ARTERY: The main pulmonary artery was normal-sized. Systolic pressure was within the normal range. RIGHT ATRIUM: The atrium was normal in size. PERICARDIUM: There was no pericardial effusion. SYSTEMIC VEINS: Inferior vena cava: The vessel was normal in size. Pleura: There was a left pleural effusion. Patient weight: 197.6lb _Ejection fraction:_ 65-75% _Fractional shortening:_ 32% up to 5Kg 5-11.5Kg 11.6-22.9Kg 23-45Kg 45-57Kg Aortic Root 7-13 <17 13-22 17-27 17-27 LA diam 6-13 <23 24-38 33-47 37-40 RVID 10-17 7-15 7-15 7-18 8-17 LVIDd 12-22 <32 24-38 33-47 37-40 LVPW 2-4 3-6 5-7 6-8 7-8 IVS 2-4 3-6 5-7 6-8 7-8 BASIC MEASUREMENTS ADULT NORMAL Left ventricle LV internal dimension, ED, chordal *53.4 mm 43-52 level, PLAX LV internal dimension, ES, chordal *42.9 mm 23-38 level, PLAX Fractional shortening, chordal level, *20 % >29 PLAX LV posterior wall thickness, ED 8.74 mm IVS/LVPW ratio, ED 0.93 <1.3 Ventricular septum Septal thickness, ED 8.17 mm Aortic valve Leaflet separation 15 mm 15-26 BASIC MEASUREMENTS ADULT NORMAL Aortic valve Leaflet separation 15 mm 15-26 Aorta Root diameter, ED 27 mm 20-37 Left atrium Anterior-posterior dimension, ES 33 mm 19-40 Anterior-posterior dimension index, ES 1.56 cm/m^2 <2.2 LA/aortic root ratio 1.22 DOPPLER MEASUREMENTS ADULT NORMAL Main pulmonary artery Pressure, S 28 mm Hg =30 Aortic valve Peak velocity, S 111 cm/s Valve area, Vmax 2.22 cm^2 Valve area index, Vmax 1.05 cm^2/m^2 Mitral valve Peak E-wave velocity 58.7 cm/s Peak A-wave velocity 65.6 cm/s Deceleration time *116 ms 150-230 Peak E/A ratio 0.9 Maximal regurgitant velocity 251 cm/s Tricuspid valve Regurgitant peak velocity 213 cm/s Peak RV-RA gradient, S 18 mm Hg Maximal regurgitant velocity 213 cm/s Systemic veins Estimated CVP 10 mm Hg Right ventricle RV pressure, S *32 mm Hg <30 Pulmonic valve Peak velocity, S 102 cm/s LEGEND: Mean values are shown as u=mean value. Asterisk (*) torres values outside specified normal range. Prepared and signed by Isai Aguirre [id number]
[2016-03-21] VITALS (20 sets, daily range): BP systolic 113–163; BP diastolic 63–105; PULSE 65–102; RESP 13–16; TEMP 96.1–102.6; O2SAT 94–98
[2016-03-21] MEDS: SODIUM CHLOR 0.9% 1000 ML INJ 1,000 ML IV SCH ×2 (00:27→12:15)
[2016-03-21] MEDS: AMPICILLIN-SULBACTAM INJ 3 GM in SODIUM CHLORIDE 0.9% INJ 100 ML IV SCH ×4 (01:12→18:23)
[2016-03-21] MEDS: PROPOFOL 1000 MG/100 ML INJ 100 ML IV SCH ×4 (01:12→11:00)
[2016-03-21] MEDS: fentaNYL DRIP 250 ML IV SCH ×2 (01:12→07:56)
[2016-03-21] MEDS: oxyCODONE HCL ORAL CONC 20 MG/ML SYRINGE PO SCH ×6 (01:13→20:00)
[2016-03-21] MEDS: HALOPERIDOL LACTATE 5 MG/ML AMP IV PRN (02:02)
[2016-03-21] MEDS ORDERED: MIDAZOLAM HCL 5 MG/5 ML VIAL IV ONE (02:30)
[2016-03-21] MEDS ORDERED: chlordiazePOXIDE 25 MG CAP PO ONE (02:30)
[2016-03-21] MEDS: MIDAZOLAM 100 MG/NS 100 ML DRIP Premix IV SCH ×2 (02:48→10:40)
[2016-03-21] MEDS: RESP: ALBUTEROL 2.5 MG/IPRATROPIUM 0.5 MG NEB (SCH) INH ×3 (03:39→21:26)
[2016-03-21] MEDS: CHLORHEXIDINE GLUCONATE 2 % 1 PACK (2 CLOTHS) TOP SCH (04:00)
[2016-03-21] MEDS: QUEtiapine FUMARATE 100 MG TAB PO SCH ×3 (05:13→22:00)
[2016-03-21] MEDS: cloNIDine HCL 0.3 MG TAB PO SCH ×3 (05:13→22:00)
[2016-03-21] MEDS: DIAZEPAM 10 MG TAB PO SCH ×3 (05:13→22:00)
[2016-03-21 05:27] LABS: HEMATOCRIT 33.7 % (39.0-51.0); MEAN CELL VOLUME 103.6 FL (80.0-100.0); MEAN CORPUSCULAR HEMOGLOBIN 35.8 PG (27.0-34.0); MEAN CORPUSCULAR HGB CONC 34.6 % (32.0-36.0); PLATELET COUNT 111 TH/MM3 (150-450); RED BLOOD COUNT 3.25 MIL/MM3 (4.50-5.90); RED CELL DISTRIBUTION WIDTH 12.8 % (11.6-17.2); REVIEW FLAG FINAL; WHITE BLOOD COUNT 8.8 TH/MM3 (4.0-11.0)
[2016-03-21 05:46] LABS: BICARBONATE 23.3 MEQ/L (21.0-32.0); POTASSIUM 3.5 MEQ/L (3.5-5.1)
[2016-03-21] MEDS: INSULIN NovoLIN REGULAR SUPPLEMENTAL SCALE SQ SCH ×4 (06:00→18:00)
--- NOTE | 2016-03-21 07:37 | HHI.CCPN ---
Subjective Remarks/Hospital Course Hospital Course: This is a 41-year-old male. Date of admission 03/19/2016 past medical history includes posterior max stress disorder/depression. No history of alcohol and polysubstance abuse per records. He arrives to [facility] He was found face down in public an undisclosed location. He was given Narcan 0.4 mg 5 and routine was Ambu bag. His GCS remained 3 throughout the EMS transport and while in the ER. Upon arrival to the ER the patient had wide-open pupils however he had no gag reflex his GCS was 3. His O2 sat was about 99% on nonrebreather mask. Pupils were equal and reactive to light and about 4 mm at baseline. He was intubated shortly following arrival using 20 mg etomidate and 50 rocuronium. Laboratories revealed a macrocytosis and hypokalemia otherwise unremarkable. Toxin positive for EtOH of [address] head currently pending. 6 revealed bilateral lobe open fractures possibly aspiration. He received 500 mg azithromycin 1 g Rocephin ED for antibiotic's. Blood cultures 2 were drawn. We are asked to admit Subjective: 03/20: extubated yesterday after his mental status improved. However, overnight, became acutely agitated, likely withdrawing from substances, then became hypoxic. required reintubation. This morning, still severely agitated despite fentanyl and propofol. 03/21: still persistently agitated yesterday, despite maximal sedation regimen. still CAM+. required versed infusion overnight and prn Librium as well. Also had high gastric residuals yesterday. Objective Vital Signs Date Time Temp Pulse Resp B/P Pulse Ox O2 Delivery O2 Flow Rate FiO2 03/21/16 06:00 75 03/21/16 04:00 100.4 16 113/65 94 03/21/16 03:39 40 03/20/16 19:00 Mechanical Ventilator 03/19/16 23:38 12.00 Intake and Output 03/20/16 03/20/16 03/21/16 08:00 16:00 00:00 Intake Total 1221 ml 1705 ml 951 ml Output Total 1375 ml 2150 ml 1075 ml Balance -154 ml -445 ml -124 ml Result Diagram: 03/21/1640203/21/16402 Imaging Last Impressions Chest X-Ray 03/18/162215 Signed Impressions: Service Date/Time: Friday, March 18, 2016 20:29 - CONCLUSION: 1. Endotracheal tube and nasogastric tube in satisfactory position. Cardiomegaly with basilar airspace disease, left greater than right. Real Marie MD Objective Remarks GENERAL: 41-year-old male, critically ill currently orotracheally intubated SKIN: Warm and dry. No rash HEENT: normocephalic, atraumatic. pupils 3mm, equal, reactive. mucous membranes moist. NECK: Trachea midline. No JVD. CARDIOVASCULAR: normal rate, regular rhythm. no appreciable murmurs RESPIRATORY: Coarse crackles are appreciated bilaterally. No wheeze Breath sounds equal bilaterally. GASTROINTESTINAL: Abdomen soft, non-tender, mildly distended. No guarding. MUSCULOSKELETAL: Extremities without edema. No obvious deformities. distal pulses 2+ NEUROLOGICAL: RASS -3. CAM +. moves all extremities spontaneously. does not follow commands this morning. A/P Assessment and Plan Assessment: 41yM initially found unresponsive with +etoh, opiate, hospital course complicated by severe and life-threatening agitated delirium likely from substance withdraw, and acute hypoxic respiratory failure. He remains critically ill this morning, and his delirium is still not under control. With the addition of more benzodiazepines in an effort to mitigate the likely strong component of RYAN withdraw, we will see if we can get control of his agitation. We will also add Guanfacine and dexmedetomidine for additional alpha-2 agonism to help with withdraw symptoms. Neuro/Psych: Severe life-threatening agitated delirium EtOH abuse Positive opiate toxicology screen History of depression Substance withdraw, possible etoh withdraw. Goal of RASS -2 Propofol/fentanyl/versed for goal RASS -- continue Seroquel 100mg po q8hr for agitated delirium -- haldol 5mg iv q1h prn for agitation -- clonidine to 0.3mg po q8hr -- start guanfacine 2mg po BID -- continue valium 20mg po q8hr -- oxycodone 10mg po q4h scheduled for opiate withdraw symptoms -- will add dexmedetomidine. at this point, I think we should see if we can wean the propofol and maintain him on versed for his strong etoh history. EtOH screen was 281. Started on thiamine/folate and multivitamin CV: Sinus tachycardia- resolved Likely secondary to withdraw symptoms. Currently on normal saline at 84 cc an hour. Currently not requiring vasopressors and/or antihypertensives. Resp: Acute hypoxemic respiratory failure PRVC Ventilator bundle Bronchodilator therapy every 6 hours and as needed Possible aspiration component to respiratory failure. See ID --does not meet SBT criteria due to his severe agitation. GI: Acute protein calorie malnutrition-mild Tube feed intolerance restart TF at [facility], Jevity 1.5 --add MiraLAX and Lactulose for goal daily bowel movements. Protonix for GI prophylaxis Colace/as needed Senokot for bowel regimen : Continue henson for accurate I/Os. Endo: Sliding-scale insulin with Accu-Cheks every 6 hours to maintain euglycemia. Low regimen Renal: Creatinine currently within normal limits. Accurate I's and O's Monitor urine output closely Heme: Macrocytosis Follow CBC/coags. Monitor trends ID: Likely aspiration pneumonia Blood cultures 2, UA sputum and urine ordered. Ronaldo Rocephin/Zithromax in ED. continue Unasyn day #3 for aspiration. will anticipate a 7 day course unless culture data allows us to speciate. FEN: Hypokalemia Replace electrolytes per ICU protocol. MSK: History of nasal fracture PT evaluate and treat Access - Utilize peripheral IV. Central line if indicated Prophylaxis - GI - Protonix - DVT - SCD/Lovenox. Critical Care: The total critical care time was 35 minutes. Time to perform other separately billable procedures was not included in the critical care time. Krunal Atkinson MD Mar 21, 2016 07:37
[2016-03-21] MEDS: DEXMEDETOMIDINE INJ 50 ML IV SCH ×4 (07:56→12:31)
[2016-03-21] MEDS: DOCUSATE SODIUM 100 MG CAP PO SCH ×2 (08:53→21:00)
[2016-03-21] MEDS: FOLIC ACID 1 MG TAB PO SCH (08:53)
[2016-03-21] MEDS: BISACODYL 10 MG SUPP RECTAL SCH (08:53)
[2016-03-21] MEDS: ARTIFICIAL TEARS OPTH SOLN 15 ML BTL EACH EYE SCH ×3 (09:00→18:00)
[2016-03-21] MEDS: MULTIVITAMIN TAB PO SCH (10:17)
[2016-03-21] MEDS: POLYETHYLENE GLYCOL 17 GM PKG PO SCH ×2 (10:17→21:00)
[2016-03-21] MEDS: LACTULOSE SYRUP 20 GM/30 ML CUP PO SCH ×2 (10:17→21:00)
[2016-03-21] MEDS: ENOXAPARIN SODIUM 40 MG/0.4 ML SYRINGE SQ SCH (10:18)
[2016-03-21] MEDS: SODIUM CHLORIDE 0.9% FLUSH 5 ML FLUSH IV FLUSH SCH ×2 (10:19→21:00)
[2016-03-21] MEDS: guanFACINE HCL 1 MG TAB PO SCH ×2 (10:40→21:00)
[2016-03-21] MEDS: THIAMINE INJ 100 MG in SODIUM CHLORIDE 0.9% INJ 100 ML IV SCH (10:40)
[2016-03-21] MEDS: CHLORHEXIDINE 0.12% (ORAL KIT) 15 ML CUP MT SCH ×2 (11:02→20:00)
[2016-03-21] MEDS: DEXMEDETOMIDINE INJ 1,000 MCG in SODIUM CHLOR 0.9% 250 ML INJ 240 ML IV SCH ×2 (13:30→21:37)
[2016-03-21] MEDS ORDERED: chlordiazePOXIDE 25 MG CAP PO SCH (14:00)
[2016-03-21] MEDS: LABETALOL HCL 100 MG/20 ML VIAL IV PRN ×2 (14:51→16:02)
[2016-03-21] MEDS ORDERED: hydrALAZINE HCL 20 MG/ML VIAL IV PUSH ONE (16:30)
[2016-03-22] VITALS (15 sets, daily range): BP systolic 102–146; BP diastolic 64–99; PULSE 71–91; RESP 15–21; TEMP 96.8–100.8; O2SAT 91–98
[2016-03-22] MEDS: SODIUM CHLOR 0.9% 1000 ML INJ 1,000 ML IV SCH ×2 (00:17→09:21)
[2016-03-22] MEDS: AMPICILLIN-SULBACTAM INJ 3 GM in SODIUM CHLORIDE 0.9% INJ 100 ML IV SCH ×4 (01:57→17:50)
[2016-03-22] MEDS: PROPOFOL 1000 MG/100 ML INJ 100 ML IV SCH (01:57)
[2016-03-22] MEDS: oxyCODONE HCL ORAL CONC 20 MG/ML SYRINGE PO SCH ×4 (01:57→12:00)
[2016-03-22] MEDS: CHLORHEXIDINE GLUCONATE 2 % 1 PACK (2 CLOTHS) TOP SCH (04:00)
[2016-03-22] MEDS: RESP: ALBUTEROL 2.5 MG/IPRATROPIUM 0.5 MG NEB (SCH) INH ×4 (04:09→20:47)
[2016-03-22 05:32] LABS: HEMATOCRIT 39.1 % (39.0-51.0); MEAN CELL VOLUME 104.1 FL (80.0-100.0); MEAN CORPUSCULAR HEMOGLOBIN 35.7 PG (27.0-34.0); MEAN CORPUSCULAR HGB CONC 34.3 % (32.0-36.0); PLATELET COUNT 119 TH/MM3 (150-450); RED BLOOD COUNT 3.76 MIL/MM3 (4.50-5.90); REVIEW FLAG FINAL; WHITE BLOOD COUNT 7.4 TH/MM3 (4.0-11.0)
[2016-03-22] MEDS: DIAZEPAM 10 MG TAB PO SCH ×4 (05:37→22:00)
[2016-03-22] MEDS: cloNIDine HCL 0.3 MG TAB PO SCH ×4 (05:37→22:00)
[2016-03-22] MEDS: QUEtiapine FUMARATE 100 MG TAB PO SCH ×2 (05:37→14:00)
[2016-03-22 05:49] LABS: BICARBONATE 22.1 MEQ/L (21.0-32.0); POTASSIUM 3.1 MEQ/L (3.5-5.1)
[2016-03-22] MEDS: INSULIN NovoLIN REGULAR SUPPLEMENTAL SCALE SQ SCH ×4 (06:00→17:44)
[2016-03-22] MEDS: hydrALAZINE HCL 20 MG/ML VIAL IV PUSH PRN (06:26)
[2016-03-22] MEDS: CHLORHEXIDINE 0.12% (ORAL KIT) 15 ML CUP MT SCH (08:45)
[2016-03-22] MEDS: THIAMINE INJ 100 MG in SODIUM CHLORIDE 0.9% INJ 100 ML IV SCH (08:46)
[2016-03-22] MEDS: DEXMEDETOMIDINE INJ 1,000 MCG in SODIUM CHLOR 0.9% 250 ML INJ 240 ML IV SCH ×2 (08:46→19:55)
[2016-03-22] MEDS: POLYETHYLENE GLYCOL 17 GM PKG PO SCH ×3 (08:55→20:24)
[2016-03-22] MEDS: MULTIVITAMIN TAB PO SCH (08:55)
[2016-03-22] MEDS: DOCUSATE SODIUM 100 MG CAP PO SCH ×3 (08:55→20:23)
[2016-03-22] MEDS: guanFACINE HCL 1 MG TAB PO SCH ×2 (08:55→09:00)
[2016-03-22] MEDS: LACTULOSE SYRUP 20 GM/30 ML CUP PO SCH ×3 (08:55→20:24)
[2016-03-22] MEDS: FOLIC ACID 1 MG TAB PO SCH (08:55)
[2016-03-22] MEDS: BISACODYL 10 MG SUPP RECTAL SCH (08:55)
[2016-03-22] MEDS: ARTIFICIAL TEARS OPTH SOLN 15 ML BTL EACH EYE SCH ×3 (09:00→17:44)
[2016-03-22] MEDS: SODIUM CHLORIDE 0.9% FLUSH 5 ML FLUSH IV FLUSH SCH ×2 (09:34→20:24)
[2016-03-22] MEDS: ENOXAPARIN SODIUM 40 MG/0.4 ML SYRINGE SQ SCH (11:18)
--- NOTE | 2016-03-22 12:23 | HHI.CCPN ---
Subjective Remarks/Hospital Course Hospital Course: This is a 41-year-old male. Date of admission 03/19/2016 past medical history includes posterior max stress disorder/depression. No history of alcohol and polysubstance abuse per records. He arrives to [facility] He was found face down in public an undisclosed location. He was given Narcan 0.4 mg 5 and routine was Ambu bag. His GCS remained 3 throughout the EMS transport and while in the ER. Upon arrival to the ER the patient had wide-open pupils however he had no gag reflex his GCS was 3. His O2 sat was about 99% on nonrebreather mask. Pupils were equal and reactive to light and about 4 mm at baseline. He was intubated shortly following arrival using 20 mg etomidate and 50 rocuronium. Laboratories revealed a macrocytosis and hypokalemia otherwise unremarkable. Toxin positive for EtOH of [address] head currently pending. 6 revealed bilateral lobe open fractures possibly aspiration. He received 500 mg azithromycin 1 g Rocephin ED for antibiotic's. Blood cultures 2 were drawn. We are asked to admit Subjective: 03/20: extubated yesterday after his mental status improved. However, overnight, became acutely agitated, likely withdrawing from substances, then became hypoxic. required reintubation. This morning, still severely agitated despite fentanyl and propofol. 03/21: still persistently agitated yesterday, despite maximal sedation regimen. still CAM+. required versed infusion overnight and prn Librium as well. Also had high gastric residuals yesterday. 03/22: agitated overnight. required increasing doses of fentanyl, propofol, versed. this morning, followed commands for me. intermittently agitated. Objective Vital Signs Date Time Temp Pulse Resp B/P Pulse Ox O2 Delivery O2 Flow Rate FiO2 03/22/16 11:10 95 Mechanical Ventilator 40 03/22/16 06:00 86 03/22/16 04:00 97.7 16 144/99 03/19/16 23:38 12.00 Intake and Output 03/21/16 03/21/16 03/22/16 08:00 16:00 00:00 Intake Total 1207 ml 1038 ml 915 ml Output Total 500 ml 860 ml 3250 ml Balance 707 ml 178 ml -2335 ml Result Diagram: 03/22/16 0353 03/22/16 0353 Imaging Last Impressions Chest X-Ray 03/18/16 5652 Signed Impressions: Service Date/Time: Friday, March 18, 2016 20:29 - CONCLUSION: 1. Endotracheal tube and nasogastric tube in satisfactory position. Cardiomegaly with basilar airspace disease, left greater than right. Real Marie MD Objective Remarks GENERAL: 41-year-old male, critically ill currently orotracheally intubated SKIN: Warm and dry. No rash HEENT: normocephalic, atraumatic. pupils 3mm, equal, reactive. mucous membranes moist. NECK: Trachea midline. No JVD. CARDIOVASCULAR: normal rate, regular rhythm. no appreciable murmurs RESPIRATORY: Coarse crackles are appreciated bilaterally. No wheeze Breath sounds equal bilaterally. GASTROINTESTINAL: Abdomen soft, non-tender, mildly distended. No guarding. MUSCULOSKELETAL: Extremities without edema. No obvious deformities. distal pulses 2+ NEUROLOGICAL: RASS -2. CAM +. moves all extremities spontaneously. followed commands for me this morning. has intermittent periods of agitation, RASS +1. A/P Assessment and Plan Assessment: 41yM initially found unresponsive with +etoh, opiate, hospital course complicated by severe and life-threatening agitated delirium likely from substance withdraw, and acute hypoxic respiratory failure. He remains critically ill this morning, and his delirium is still not under control. I am holding his AM meds to see if there is a polypharmacy component to his delirium. I still think he will need significant alpha-2 agonism going forward , and possibly RYAN agonists. I will very gently wean the sedation to see if we can increase his level of alertness while keeping him safe. Neuro/Psych: Severe life-threatening agitated delirium EtOH abuse Positive opiate toxicology screen History of depression Substance withdraw, possible etoh withdraw. Goal of RASS -2 Propofol/fentanyl/versed for goal RASS -- hold Seroquel, clonidine, guanfacine, valium for now. -- continue precedex, fentanyl, versed, propofol. will wean as tolerated. -- will likely need ongoing alpha 2 agonism and RYAN for withdraw symptoms. EtOH screen was 281. Started on thiamine/folate and multivitamin CV: Sinus tachycardia- resolved Likely secondary to withdraw symptoms. Currently on normal saline at 84 cc an hour. Currently not requiring vasopressors and/or antihypertensives. Resp: Acute hypoxemic respiratory failure PRVC Ventilator bundle Bronchodilator therapy every 6 hours and as needed Possible aspiration component to respiratory failure. See ID --will perform SBT if we can get his agitation under control. GI: Acute protein calorie malnutrition-mild Tube feed intolerance restart TF at [facility] 1.5 --add MiraLAX and Lactulose for goal daily bowel movements. Protonix for GI prophylaxis Colace/as needed Senokot for bowel regimen : Continue henson for accurate I/Os. Endo: Sliding-scale insulin with Accu-Cheks every 6 hours to maintain euglycemia. Low regimen Renal: Creatinine currently within normal limits. Accurate I's and O's Monitor urine output closely Heme: Macrocytosis Follow CBC/coags. Monitor trends ID: Likely aspiration pneumonia Blood cultures 2, UA sputum and urine ordered- still NGTD. Received Rocephin/Zithromax in ED. continue Unasyn day #4 for aspiration. will anticipate a 7 day course unless culture data allows us to speciate. FEN: Hypokalemia Replace electrolytes per ICU protocol. MSK: History of nasal fracture PT evaluate and treat Access - Utilize peripheral IV. Central line if indicated Prophylaxis - GI - Protonix - DVT - SCD/Lovenox. Critical Care: The total critical care time was 107 minutes. Time to perform other separately billable procedures was not included in the critical care time. This critical care time includes time I spent personally at the bedside of the patient throughout the day managing his severe agitated delirium and hypoxia. Krunal Atkinson MD Mar 22, 2016 12:23 Critical Care: The total critical care time was 35 minutes. Time to perform other separately billable procedures was not included in the critical care time. Krunal Atkinson MD Mar 22, 2016 12:23
[2016-03-22] MEDS ORDERED: MIDAZOLAM HCL 5 MG/ML VIAL (1 ML) IV ONE (13:30)
[2016-03-22] MEDS: POTASSIUM CHLOR 20 MEQ PREMIX 100 ML IV PRN ×4 (15:40→22:34)
[2016-03-22] MEDS: LORazepam 2 MG/ML VIAL IV PUSH PRN ×4 (16:38→22:32)
[2016-03-22] MEDS ORDERED: ACETAMINOPHEN 1000 MG/100 ML VIAL IV PRN (18:15)
[2016-03-23] VITALS (14 sets, daily range): BP systolic 136–172; BP diastolic 78–104; PULSE 73–91; RESP 22–31; TEMP 98.7–99.9; O2SAT 93–98
[2016-03-23] MEDS: SODIUM CHLOR 0.9% 1000 ML INJ 1,000 ML IV SCH ×3 (00:07→23:57)
[2016-03-23] MEDS: DEXMEDETOMIDINE INJ 1,000 MCG in SODIUM CHLOR 0.9% 250 ML INJ 240 ML IV SCH ×5 (01:20→22:23)
[2016-03-23] MEDS: LORazepam 2 MG/ML VIAL IV PUSH PRN ×7 (01:20→06:45)
[2016-03-23] MEDS: AMPICILLIN-SULBACTAM INJ 3 GM in SODIUM CHLORIDE 0.9% INJ 100 ML IV SCH ×2 (01:20→06:51)
[2016-03-23] MEDS: MIDAZOLAM HCL 5 MG/ML VIAL (1 ML) IV PRN ×6 (01:43→18:40)
[2016-03-23] MEDS: CHLORHEXIDINE GLUCONATE 2 % 1 PACK (2 CLOTHS) TOP SCH (04:00)
[2016-03-23] MEDS: RESP: ALBUTEROL 2.5 MG/IPRATROPIUM 0.5 MG NEB (SCH) INH ×4 (04:00→21:16)
[2016-03-23] MEDS: cloNIDine HCL 0.3 MG TAB PO SCH (05:35)
[2016-03-23] MEDS: DIAZEPAM 10 MG TAB PO SCH ×3 (05:36→22:00)
[2016-03-23 05:52] LABS: HEMATOCRIT 36.5 % (39.0-51.0); MEAN CELL VOLUME 103.9 FL (80.0-100.0); MEAN CORPUSCULAR HGB CONC 33.7 % (32.0-36.0); PLATELET COUNT 131 TH/MM3 (150-450); RED BLOOD COUNT 3.51 MIL/MM3 (4.50-5.90); RED CELL DISTRIBUTION WIDTH 12.9 % (11.6-17.2); REVIEW FLAG FINAL; WHITE BLOOD COUNT 11.9 TH/MM3 (4.0-11.0)
[2016-03-23] MEDS: INSULIN NovoLIN REGULAR SUPPLEMENTAL SCALE SQ SCH ×4 (06:00→17:53)
[2016-03-23 06:12] LABS: POTASSIUM 4.1 MEQ/L (3.5-5.1)
--- NOTE | 2016-03-23 07:50 | HHI.CCPN ---
Subjective Remarks/Hospital Course Hospital Course: This is a 41-year-old male. Date of admission 03/19/2016 past medical history includes posterior max stress disorder/depression. No history of alcohol and polysubstance abuse per records. He arrives to [facility] He was found face down in public an undisclosed location. He was given Narcan 0.4 mg 5 and routine was Ambu bag. His GCS remained 3 throughout the EMS transport and while in the ER. Upon arrival to the ER the patient had wide-open pupils however he had no gag reflex his GCS was 3. His O2 sat was about 99% on nonrebreather mask. Pupils were equal and reactive to light and about 4 mm at baseline. He was intubated shortly following arrival using 20 mg etomidate and 50 rocuronium. Laboratories revealed a macrocytosis and hypokalemia otherwise unremarkable. Toxin positive for EtOH of [address] head currently pending. 6 revealed bilateral lobe open fractures possibly aspiration. He received 500 mg azithromycin 1 g Rocephin ED for antibiotic's. Blood cultures 2 were drawn. We are asked to admit Subjective: 03/20: extubated yesterday after his mental status improved. However, overnight, became acutely agitated, likely withdrawing from substances, then became hypoxic. required reintubation. This morning, still severely agitated despite fentanyl and propofol. 03/21: still persistently agitated yesterday, despite maximal sedation regimen. still CAM+. required versed infusion overnight and prn Librium as well. Also had high gastric residuals yesterday. 03/22: agitated overnight. required increasing doses of fentanyl, propofol, versed. this morning, followed commands for me. intermittently agitated. 03/23: Remains severely agitated. On Precedex 2 g per KG per hour. I will start scheduled Geodon IM, in attempt to reduce Precedex. Start Clonidine patch for consistent delivery due to agitation and refusal to take PO. CXR shows increasing bilateral predominantly perihilar infiltrates Objective Vital Signs Date Time Temp Pulse Resp B/P Pulse Ox O2 Delivery O2 Flow Rate FiO2 03/22/16 20:43 93 Non-Rebreather 15.00 100 03/22/16 16:00 100.8 90 21 132/82 Intake and Output 03/22/16 03/22/16 03/23/16 08:00 16:00 00:00 Intake Total 1178 ml 1523 ml 103 ml Output Total 2125 ml 1475 ml Balance -947 ml 48 ml 103 ml Result Diagram: 03/23/163 03/23/163 Imaging Last Impressions Chest X-Ray 03/18/162215 Signed Impressions: Service Date/Time: Friday, March 18, 2016 20:29 - CONCLUSION: 1. Endotracheal tube and nasogastric tube in satisfactory position. Cardiomegaly with basilar airspace disease, left greater than right. Real Marie MD Objective Remarks GENERAL: 41-year-old male, critically ill currently on 100% NRB SKIN: Warm and dry. No rash HEENT: normocephalic, atraumatic. pupils 3mm, equal, reactive. mucous membranes moist. NECK: Trachea midline. No JVD. CARDIOVASCULAR: normal rate, regular rhythm. no appreciable murmurs RESPIRATORY: Few coarse crackles are appreciated bilaterally. No wheeze Breath sounds equal bilaterally, but diminished at bases. GASTROINTESTINAL: Abdomen soft, non-tender, mildly distended. No guarding. MUSCULOSKELETAL: Extremities without edema. No obvious deformities. distal pulses 2+ NEUROLOGICAL: Sedated with 2 g per KG per hour of Precedex. moves all extremities spontaneously. Not following commands to me. A/P Assessment and Plan Assessment: 41yM initially found unresponsive with +etoh, opiate, hospital course complicated by severe and life-threatening agitated delirium likely from substance withdrawal, and acute hypoxic respiratory failure. He remains critically ill, and his delirium is still not under control. I still think he will need significant alpha-2 agonism going forward, and possibly RYAN agonists. I will very gently wean the sedation to see if we can increase his level of alertness while keeping him safe. Neuro/Psych: Life-threatening agitated delirium Alcohol dependence Positive opiate toxicology screen History of depression Substance withdraw, possible etoh withdraw. Goal of RASS -2, continued Precedex and PRN Fentnayl/versed for goal RASS -- hold PO Seroquel, clonidine, guanfacine, valium for now. -- 03/23/16 Start Clonidine patch 0.6 mg/24 hr. Start Geodon 10 mg IM q12 -- will likely need ongoing alpha 2 agonism and RYAN for withdraw symptoms. EtOH level on admission was 281. Started on thiamine/folate and multivitamin CV: Sinus tachycardia- resolved Likely secondary to withdrawal symptoms. Currently on normal saline at 84 cc an hour. Currently not requiring vasopressors and/or antihypertensives. IV Bumex 2 mg x1 for fluid overload Resp: Acute hypoxemic respiratory failure Acute Lung Injury secondary to aspiration pneumonia On NRB, continue aggressive pulmonary toilet Extubated 03/22/16. CXR today shows increasing bilateral predominantly perihilar infiltrates Check ABG, may need intubation. (Not a candidate for BiPAP) Bronchodilator therapy every 6 hours and as needed Possible aspiration component to respiratory failure and Acute lung injury GI: Acute protein calorie malnutrition Extubated yesterday, attempt at replacing NG tube. Could be difficult due to severe agitation MiraLAX and Lactulose for goal daily bowel movements. Protonix for GI prophylaxis Colace/as needed Senokot for bowel regimen : Continue henson for accurate I/Os. Endo: Sliding-scale insulin with Accu-Cheks every 6 hours to maintain euglycemia. Low regimen Renal: Creatinine currently within normal limits. Accurate I's and O's Monitor urine output closely Heme: Macrocytosis Follow CBC/coags. Monitor trends ID: Likely aspiration pneumonia Blood cultures 2, UA sputum and urine ordered- still NGTD. Received Rocephin/Zithromax in ED. continue Unasyn day #5 for aspiration-will change to Zosyn to cover for nosocomial pathogens. FEN: Hypokalemia Replace electrolytes per ICU protocol. MSK: History of nasal fracture Access - Utilize peripheral IV. Central line if indicated Prophylaxis - GI - Protonix - DVT - SCD/Lovenox. Critical Care: The total critical care time was 45 minutes. Time to perform other separately billable procedures was not included in the critical care time. This critical care time includes time I spent personally at the bedside of the patient throughout the day managing his severe agitated delirium and hypoxia. Jose Horton MD Mar 23, 2016 07:50
[2016-03-23] MEDS ORDERED: ZIPRASIDONE MESYLATE 20 MG VIAL IM SCH (08:15)
[2016-03-23] MEDS: SODIUM CHLORIDE 0.9% FLUSH 5 ML FLUSH IV FLUSH SCH ×2 (08:17→21:05)
[2016-03-23] MEDS: THIAMINE INJ 100 MG in SODIUM CHLORIDE 0.9% INJ 100 ML IV SCH (08:17)
[2016-03-23] MEDS: ARTIFICIAL TEARS OPTH SOLN 15 ML BTL EACH EYE SCH ×3 (08:17→17:53)
--- NOTE | 2016-03-23 08:27 | RADRPT ---
EXAM DATE/TIME: 03/23/2016 08:06 [facility] COMPARISON: CHEST SINGLE AP, March 20, 2016, 5:10. INDICATIONS : Evaluate for pulmonary disease. MEDICAL HISTORY: None. SURGICAL HISTORY: None. ENCOUNTER: Subsequent ACUITY: 4 - 6 days PAIN SCORE: Non-responsive. LOCATION: Bilateral chest FINDINGS: Patchy air space disease is seen in the perihilar distribution in both lungs. There are consolidativ e changes in the left base. Heart is minimally enlarged, pulmonary vascularity is normal. CONCLUSIO N: 1. Decrease in lung volumes following extubation. 2. Patchy air space disease persists in both perihilar regions. This has progressed. The amount of consolidation in the left lung base has decreased. Colin Mtz MD FACR on March 23, 2016 at 8:17 Board Certified Radiologist. This report was verified electronically.
[2016-03-23] MEDS ORDERED: BUMETANIDE INJ 1 MG/4 ML VIAL IV PUSH ONE (08:30)
[2016-03-23] MEDS ORDERED: VANCOMYCIN INJ 1,250 MG in SODIUM CHLOR 0.9% 250 ML INJ 250 ML IV ONE (09:00)
[2016-03-23] MEDS: BISACODYL 10 MG SUPP RECTAL SCH (09:00)
[2016-03-23 09:09] LABS: BLOOD GAS BASE EXCESS -1.1 mmol/L (-2-2); BLOOD GAS CARBOXYHEMOGLOBIN 1.2 % (0-4); BLOOD GAS HCO3 24 mmol/L (22-26); BLOOD GAS METHEMOGLOBIN 0.8 % (0-2); BLOOD GAS O2 HGB SATURATION 97 % (90-100); BLOOD GAS OXYGEN CONTENT 17.9 Vol % (12.0-20.0); BLOOD GAS PCO2 42 mmHg (38-42); BLOOD GAS PO2 128 mmHg (61-120); BLOOD GAS TOTAL HGB 13.1 G/DL (12.0-16.0); CRITICAL VALUE NO; TEMP CORR TO 98.6
[2016-03-23 09:10] LABS: DRAW SITE LT RADIAL; LITER FLOW 15 L/M; NUMBER OF ARTERIAL PUNCTURES 2; STAT YES; ULNAR PULSE PRESENT
[2016-03-23] MEDS: POTASSIUM CHLOR 20 MEQ PREMIX 100 ML IV SCH ×2 (09:45→11:12)
[2016-03-23] MEDS: ENOXAPARIN SODIUM 40 MG/0.4 ML SYRINGE SQ SCH (09:46)
[2016-03-23] MEDS: LACTULOSE SYRUP 20 GM/30 ML CUP PO SCH ×2 (10:27→21:18)
[2016-03-23] MEDS: POLYETHYLENE GLYCOL 17 GM PKG PO SCH ×2 (10:27→21:18)
[2016-03-23] MEDS: MULTIVITAMIN TAB PO SCH (10:27)
[2016-03-23] MEDS: DOCUSATE SODIUM 100 MG CAP PO SCH ×2 (10:28→21:00)
[2016-03-23] MEDS: cloNIDine HCL 0.3 MG/24 HR PATCH TD SCH (10:28)
[2016-03-23] MEDS: FOLIC ACID 1 MG TAB PO SCH (10:28)
[2016-03-23] MEDS: PIPERACIL-TAZO 4.5 GM PREMIX 100 ML IV SCH ×2 (11:13→18:00)
[2016-03-23] MEDS ORDERED: ZIPRASIDONE MESYLATE 20 MG VIAL IM ONE (15:00)
[2016-03-23] MEDS: hydrALAZINE HCL 20 MG/ML VIAL IV PUSH PRN (18:00)
[2016-03-23] MEDS: ZIPRASIDONE MESYLATE 20 MG VIAL IM SCH ×2 (21:00→21:18)
[2016-03-23 22:22] LABS: BLOOD GAS BASE EXCESS 0.2 mmol/L (-2-2); BLOOD GAS CARBOXYHEMOGLOBIN 1.5 % (0-4); BLOOD GAS HCO3 24 mmol/L (22-26); BLOOD GAS METHEMOGLOBIN 0.8 % (0-2); BLOOD GAS O2 HGB SATURATION 91 % (90-100); BLOOD GAS OXYGEN CONTENT 18.3 Vol % (12.0-20.0); BLOOD GAS PCO2 35 mmHg (38-42); BLOOD GAS PO2 67 mmHg (61-120); BLOOD GAS TOTAL HGB 14.2 G/DL (12.0-16.0); CRITICAL VALUE NO; DRAW SITE LT RADIAL; FIO2 40 %; LITER FLOW 6 L/M; OXYGEN DEVICE Venti Mask; TEMP CORR TO 98.6
[2016-03-23 22:23] LABS: NUMBER OF ARTERIAL PUNCTURES 1; STAT NO; ULNAR PULSE PRESENT
[2016-03-24] VITALS (15 sets, daily range): BP systolic 125–160; BP diastolic 73–101; PULSE 73–97; RESP 16–36; TEMP 97.4–99.2; O2SAT 94–100
[2016-03-24] MEDS: PIPERACIL-TAZO 4.5 GM PREMIX 100 ML IV SCH ×4 (00:42→18:20)
[2016-03-24] MEDS: LORazepam 2 MG/ML VIAL IV PUSH PRN ×2 (01:57→18:28)
[2016-03-24] MEDS: RESP: ALBUTEROL 2.5 MG/IPRATROPIUM 0.5 MG NEB (SCH) INH ×4 (02:50→21:47)
[2016-03-24] MEDS: CHLORHEXIDINE GLUCONATE 2 % 1 PACK (2 CLOTHS) TOP SCH (04:00)
[2016-03-24] MEDS: DEXMEDETOMIDINE INJ 1,000 MCG in SODIUM CHLOR 0.9% 250 ML INJ 240 ML IV SCH ×3 (04:59→18:50)
--- NOTE | 2016-03-24 05:52 | RADRPT ---
EXAM DATE/TIME: 03/24/2016 04:31 [facility] COMPARISON: CHEST SINGLE AP, March 23, 2016, 8:06. INDICATIONS : Respiratory disease. MEDICAL HISTORY : None. SURGICAL HISTORY : None. ENCOUNTER: Subsequent ACUITY: 4 - 6 days PAIN SCORE: Non-responsive. LOCATION: Bilateral chest FINDINGS: The cardiac silhouette is enlarged in transverse diameter. There are findings of congestive heart tapan lure with interstitial and alveolar opacity bilaterally. The findings are improved when compared with the prior exam. No pleural effusions are identified. CONCLUSION: 1. Cardiomegaly and findings of congestive heart failure. The findings are improved when compared wit h the prior exam. Simone Hassan MD on March 24, 2016 at 5:51 Board Certified Radiologist. This report was verified electronically.
[2016-03-24] MEDS: INSULIN NovoLIN REGULAR SUPPLEMENTAL SCALE SQ SCH ×2 (06:00)
[2016-03-24] MEDS: DIAZEPAM 10 MG TAB PO SCH ×3 (06:00→22:20)
[2016-03-24 07:11] LABS: AUTOMATED NEUTROPHIL # 6.8 TH/MM3 (1.8-7.7); BASOPHIL % 0.5 % (0.0-2.0); EOSINOPHIL # 0.2 TH/MM3 (0-0.4); EOSINOPHIL % 2.7 % (0.0-4.0); HEMATOCRIT 38.1 % (39.0-51.0); HEMO FLAGS DIFF FINAL; LYMPH % 12.8 % (9.0-44.0); LYMPHOCYTE # 1.2 TH/MM3 (1.0-4.8); MEAN CORPUSCULAR HEMOGLOBIN 35.2 PG (27.0-34.0); MEAN CORPUSCULAR HGB CONC 34.2 % (32.0-36.0); MONO % 10.3 % (0.0-8.0); NEUT % 73.7 % (16.0-70.0); PLATELET COUNT 151 TH/MM3 (150-450); RED CELL DISTRIBUTION WIDTH 12.5 % (11.6-17.2); WHITE BLOOD COUNT 9.2 TH/MM3 (4.0-11.0)
[2016-03-24 07:36] LABS: ANION GAP 14 MEQ/L (5-15); AST (GOT) 34 U/L (15-37); BICARBONATE 21.4 MEQ/L (21.0-32.0); BLOOD UREA NITROGEN 8 MG/DL (7-18); CHLORIDE 105 MEQ/L (98-107); GLOMERULAR FILTRATION RATE 112 ML/MIN (>89); MAGNESIUM 1.7 MG/DL (1.5-2.5); POTASSIUM 3.5 MEQ/L (3.5-5.1); SODIUM (NA) 140 MEQ/L (136-145)
[2016-03-24 07:40] LABS: ALKALINE PHOSPHATASE 74 U/L (45-117); ALT (GPT) 24 U/L (12-78); TOTAL BILIRUBIN ADULT 0.8 MG/DL (0.2-1.0)
[2016-03-24] MEDS: BISACODYL 10 MG SUPP RECTAL SCH (09:00)
[2016-03-24] MEDS: LACTULOSE SYRUP 20 GM/30 ML CUP PO SCH ×2 (09:00→20:44)
[2016-03-24] MEDS: POLYETHYLENE GLYCOL 17 GM PKG PO SCH ×2 (09:00→20:44)
[2016-03-24] MEDS: DOCUSATE SODIUM 100 MG CAP PO SCH ×2 (09:00→20:44)
[2016-03-24] MEDS: ARTIFICIAL TEARS OPTH SOLN 15 ML BTL EACH EYE SCH ×3 (09:00→18:20)
[2016-03-24] MEDS: MULTIVITAMIN TAB PO SCH (09:00)
[2016-03-24] MEDS: ESCITALOPRAM OXALATE 10 MG TAB PO SCH (09:00)
[2016-03-24] MEDS: FOLIC ACID 1 MG TAB PO SCH (09:00)
[2016-03-24] MEDS: ZIPRASIDONE MESYLATE 20 MG VIAL IM SCH ×2 (09:28→22:20)
[2016-03-24] MEDS: ENOXAPARIN SODIUM 40 MG/0.4 ML SYRINGE SQ SCH (09:28)
[2016-03-24] MEDS: SODIUM CHLORIDE 0.9% FLUSH 5 ML FLUSH IV FLUSH SCH ×2 (10:33→22:15)
[2016-03-24] MEDS: THIAMINE INJ 100 MG in SODIUM CHLORIDE 0.9% INJ 100 ML IV SCH (10:33)
--- NOTE | 2016-03-24 11:07 | HHI.CCPN ---
Subjective Remarks/Hospital Course Hospital Course: This is a 41-year-old male. Date of admission 03/19/2016 past medical history includes posterior max stress disorder/depression. No history of alcohol and polysubstance abuse per records. He arrives to [facility] He was found face down in public an undisclosed location. He was given Narcan 0.4 mg 5 and routine was Ambu bag. His GCS remained 3 throughout the EMS transport and while in the ER. Upon arrival to the ER the patient had wide-open pupils however he had no gag reflex his GCS was 3. His O2 sat was about 99% on nonrebreather mask. Pupils were equal and reactive to light and about 4 mm at baseline. He was intubated shortly following arrival using 20 mg etomidate and 50 rocuronium. Laboratories revealed a macrocytosis and hypokalemia otherwise unremarkable. Toxin positive for EtOH of [address] head currently pending. 6 revealed bilateral lobe open fractures possibly aspiration. He received 500 mg azithromycin 1 g Rocephin ED for antibiotic's. Blood cultures 2 were drawn. We are asked to admit Subjective: 03/20: extubated yesterday after his mental status improved. However, overnight, became acutely agitated, likely withdrawing from substances, then became hypoxic. required reintubation. This morning, still severely agitated despite fentanyl and propofol. 03/21: still persistently agitated yesterday, despite maximal sedation regimen. still CAM+. required versed infusion overnight and prn Librium as well. Also had high gastric residuals yesterday. 03/22: agitated overnight. required increasing doses of fentanyl, propofol, versed. this morning, followed commands for me. intermittently agitated. 03/23: Remains severely agitated. On Precedex 2 g per KG per hour. I will start scheduled Geodon IM, in attempt to reduce Precedex. Start Clonidine patch for consistent delivery due to agitation and refusal to take PO. CXR shows increasing bilateral predominantly perihilar infiltrates 03/24: Calm now, somnolent. Protects airway. Will adjust psych meds and hopefully transition to outpatient regimen. Objective Vital Signs Date Time Temp Pulse Resp B/P Pulse Ox O2 Delivery O2 Flow Rate FiO2 03/24/16 10:46 97 Venturi Mask 40 03/24/16 10:00 75 03/24/16 08:00 99.0 31 160/101 03/23/16 21:16 6.00 Intake and Output 03/23/16 03/23/16 03/24/16 08:00 16:00 00:00 Intake Total 1213 ml 2027 ml 1225 ml Output Total 2100 ml 5150 ml 1000 ml Balance -887 ml -3123 ml 225 ml Result Diagram: 03/24/16 0600 03/24/16 0600 Other Results Microbiology Date/Time Procedure Status Source Growth 03/21/16 17:00 Gram Stain - Final Complete Sputum Endotracheal 03/21/16 17:00 Sputum Culture - Final Complete Sputum Endotracheal LIGHT GROWTH NORMAL RESPIRATORY [facility] Laboratory Tests Test 03/23/16 22:09 Blood Gas Puncture Site LT RADIAL Blood Gas Patient Temperature 98.6 Blood Gas HCO3 24 mmol/L (22-26) Blood Gas Base Excess 0.2 mmol/L (-2-2) Blood Gas Oxygen Saturation 91 % (90-100) Arterial Blood pH 7.45 (7.380-7.420) Arterial Blood Partial 35 mmHg (38-42) Pressure CO2 Arterial Blood Partial 67 mmHg Pressure O2 (61-120) Arterial Blood Oxygen Content 18.3 Vol % (12.0-20.0) Arterial Blood 1.5 % (0-4) Carboxyhemoglobin Arterial Blood Methemoglobin 0.8 % (0-2) Blood Gas Hemoglobin 14.2 G/DL (12.0-16.0) Oxygen Delivery Device Venti Mask Blood Gas Liter Flow 6 L/M Blood Gas Inspired Oxygen 40 % Imaging Last Impressions Chest X-Ray 03/18/162215 Signed Impressions: Service Date/Time: Friday, March 18, 2016 20:29 - CONCLUSION: 1. Endotracheal tube and nasogastric tube in satisfactory position. Cardiomegaly with basilar airspace disease, left greater than right. Real Marie MD Objective Remarks GENERAL: 41-year-old male, critically ill FM O2 SKIN: Warm and dry. HEENT: normocephalic, atraumatic. pupils 2 mm, equal, reactive. NECK: Trachea midline. No JVD. Airway widely patent. CARDIOVASCULAR: normal rate, regular rhythm. no appreciable murmurs, no JVD. RESPIRATORY: Few coarse crackles are appreciated bilaterally. No wheezes. Breath sounds equal bilaterally. GASTROINTESTINAL: Abdomen soft, non-tender, mildly distended. No guarding. BS active. MUSCULOSKELETAL: Extremities without edema. No obvious deformities. distal pulses 2+ well perfused. NEUROLOGICAL: Sedated with 2 g per KG per hour of Precedex. moves all extremities spontaneously. A/P Assessment and Plan Assessment: 41yM initially found unresponsive with +etoh, opiate, hospital course complicated by severe and life-threatening agitated delirium likely from substance withdrawal, and acute hypoxic respiratory failure. He remains critically ill, and his delirium is still not under control. I still think he will need significant alpha-2 agonism going forward, and possibly RAYN agonists. I will very gently wean the sedation to see if we can increase his level of alertness while keeping him safe. Neuro/Psych: Life-threatening agitated delirium Alcohol dependence Positive opiate toxicology screen History of depression Substance withdraw, possible etoh withdraw. Goal of RASS 0, continued Precedex and PRN Fentnayl/versed for goal RASS -- hold PO Seroquel, clonidine, guanfacine, valium for now. -- 03/23/16 Start Clonidine patch 0.6 mg/24 hr. Start Geodon 10 mg IM q12 -- will likely need ongoing alpha 2 agonism and RYNA for withdraw symptoms. EtOH level on admission was 281. Started on thiamine/folate and multivitamin CV: Sinus tachycardia- resolved Likely secondary to withdrawal symptoms. Currently on normal saline at 84 cc an hour. Currently not requiring vasopressors and/or antihypertensives. IV Bumex 2 mg x1 for fluid overload Resp: Acute hypoxemic respiratory failure Acute Lung Injury secondary to aspiration pneumonia On NRB, continue aggressive pulmonary toilet Extubated 03/22/16. CXR today shows increasing bilateral predominantly perihilar infiltrates Check ABG, may need intubation. (Not a candidate for BiPAP) Bronchodilator therapy every 6 hours and as needed Possible aspiration component to respiratory failure and Acute lung injury Improved aeration 03/24 GI: Acute protein calorie malnutrition Extubated yesterday, attempt at replacing NG tube. Could be difficult due to severe agitation MiraLAX and Lactulose for goal daily bowel movements. Protonix for GI prophylaxis Colace/as needed Senokot for bowel regimen : Continue henson for accurate I/Os. Endo: Sliding-scale insulin with Accu-Cheks every 6 hours to maintain euglycemia. Low regimen Renal: Creatinine currently within normal limits. Accurate I's and O's Monitor urine output closely Heme: Macrocytosis Follow CBC/coags. Monitor trends ID: Likely aspiration pneumonia Blood cultures 2, UA sputum and urine ordered- still NGTD. Received Rocephin/Zithromax in ED. continue Unasyn day #5 for aspiration-will change to Zosyn to cover for nosocomial pathogens. FEN: Hypokalemia Replace electrolytes per ICU protocol. MSK: History of nasal fracture Access - Utilize peripheral IV. Central line if indicated Prophylaxis - GI - Protonix - DVT - SCD/Lovenox. Overall impression: Past the critical stage; attempting to maintain a clam state. Cesar Freire MD Mar 24, 2016 11:07
[2016-03-24] MEDS: hydrALAZINE HCL 20 MG/ML VIAL IV PRN (11:12)
[2016-03-24] MEDS: SODIUM CHLOR 0.9% 1000 ML INJ 1,000 ML IV SCH (12:00)
[2016-03-25] VITALS (14 sets, daily range): BP systolic 140–185; BP diastolic 81–110; PULSE 52–84; RESP 27–34; TEMP 97.5–98.5; O2SAT 94–98
[2016-03-25] MEDS: SODIUM CHLOR 0.9% 1000 ML INJ 1,000 ML IV SCH ×3 (00:27→22:15)
[2016-03-25] MEDS: PIPERACIL-TAZO 4.5 GM PREMIX 100 ML IV SCH ×3 (00:27→12:00)
[2016-03-25] MEDS: RESP: ALBUTEROL 2.5 MG/IPRATROPIUM 0.5 MG NEB (SCH) INH ×4 (03:55→21:56)
[2016-03-25] MEDS: CHLORHEXIDINE GLUCONATE 2 % 1 PACK (2 CLOTHS) TOP SCH (04:00)
[2016-03-25 05:36] LABS: HEMATOCRIT 37.7 % (39.0-51.0); MEAN CELL VOLUME 102.8 FL (80.0-100.0); MEAN CORPUSCULAR HEMOGLOBIN 35.3 PG (27.0-34.0); MEAN CORPUSCULAR HGB CONC 34.3 % (32.0-36.0); PLATELET COUNT 180 TH/MM3 (150-450); RED BLOOD COUNT 3.67 MIL/MM3 (4.50-5.90); RED CELL DISTRIBUTION WIDTH 12.8 % (11.6-17.2); REVIEW FLAG FINAL; WHITE BLOOD COUNT 8.5 TH/MM3 (4.0-11.0)
[2016-03-25 05:55] LABS: BICARBONATE 19.9 MEQ/L (21.0-32.0); POTASSIUM 3.4 MEQ/L (3.5-5.1)
[2016-03-25] MEDS: LACTULOSE SYRUP 20 GM/30 ML CUP PO SCH ×2 (09:00→21:00)
[2016-03-25] MEDS: BISACODYL 10 MG SUPP RECTAL SCH (09:00)
[2016-03-25] MEDS: THIAMINE INJ 100 MG in SODIUM CHLORIDE 0.9% INJ 100 ML IV SCH (09:00)
[2016-03-25] MEDS: DOCUSATE SODIUM 100 MG CAP PO SCH ×2 (09:00→21:00)
[2016-03-25] MEDS: SODIUM CHLORIDE 0.9% FLUSH 5 ML FLUSH IV FLUSH SCH ×2 (09:00→21:00)
[2016-03-25] MEDS: POLYETHYLENE GLYCOL 17 GM PKG PO SCH ×2 (09:00→21:00)
[2016-03-25] MEDS: MULTIVITAMIN TAB PO SCH (09:00)
[2016-03-25] MEDS: ESCITALOPRAM OXALATE 10 MG TAB PO SCH (10:09)
[2016-03-25] MEDS: FOLIC ACID 1 MG TAB PO SCH (10:09)
[2016-03-25] MEDS: ZIPRASIDONE MESYLATE 20 MG VIAL IM SCH ×2 (10:10→21:06)
[2016-03-25] MEDS: ENOXAPARIN SODIUM 40 MG/0.4 ML SYRINGE SQ SCH (10:11)
[2016-03-25] MEDS: POTASSIUM CHLOR 20 MEQ PREMIX 100 ML IV PRN (13:23)
[2016-03-25] MEDS: DIAZEPAM 10 MG TAB PO SCH ×2 (13:29→21:05)
--- NOTE | 2016-03-25 15:37 | HHI.CCPN ---
Subjective Remarks/Hospital Course Hospital Course: This is a 41-year-old male. Date of admission 03/19/2016 past medical history includes posterior max stress disorder/depression. No history of alcohol and polysubstance abuse per records. He arrives to [facility] He was found face down in public an undisclosed location. He was given Narcan 0.4 mg 5 and routine was Ambu bag. His GCS remained 3 throughout the EMS transport and while in the ER. Upon arrival to the ER the patient had wide-open pupils however he had no gag reflex his GCS was 3. His O2 sat was about 99% on nonrebreather mask. Pupils were equal and reactive to light and about 4 mm at baseline. He was intubated shortly following arrival using 20 mg etomidate and 50 rocuronium. Laboratories revealed a macrocytosis and hypokalemia otherwise unremarkable. Toxin positive for EtOH of [address] head currently pending. 6 revealed bilateral lobe open fractures possibly aspiration. He received 500 mg azithromycin 1 g Rocephin ED for antibiotic's. Blood cultures 2 were drawn. We are asked to admit Subjective: 03/20: extubated yesterday after his mental status improved. However, overnight, became acutely agitated, likely withdrawing from substances, then became hypoxic. required reintubation. This morning, still severely agitated despite fentanyl and propofol. 03/21: still persistently agitated yesterday, despite maximal sedation regimen. still CAM+. required versed infusion overnight and prn Librium as well. Also had high gastric residuals yesterday. 03/22: agitated overnight. required increasing doses of fentanyl, propofol, versed. this morning, followed commands for me. intermittently agitated. 03/23: Remains severely agitated. On Precedex 2 g per KG per hour. I will start scheduled Geodon IM, in attempt to reduce Precedex. Start Clonidine patch for consistent delivery due to agitation and refusal to take PO. CXR shows increasing bilateral predominantly perihilar infiltrates 03/24: Calm now, somnolent. Protects airway. Will adjust psych meds and hopefully transition to outpatient regimen. 03/25: Agitated and confused. Recent detox from ETOH and opiates. Objective Vital Signs Date Time Temp Pulse Resp B/P Pulse Ox O2 Delivery O2 Flow Rate FiO2 03/25/16 08:48 97 Nasal Cannula 2.00 03/25/16 08:00 71 03/25/16 04:00 98.1 31 141/89 03/24/16 12:00 40 Intake and Output 03/24/16 03/24/16 03/25/16 08:00 16:00 00:00 Intake Total 1081 ml 809 ml 741 ml Output Total 600 ml 1000 ml 925 ml Balance 481 ml -191 ml -184 ml Result Diagram: 03/25/16 0357 03/25/16 0357 Imaging Last Impressions Chest X-Ray 03/18/162215 Signed Impressions: Service Date/Time: Friday, March 18, 2016 20:29 - CONCLUSION: 1. Endotracheal tube and nasogastric tube in satisfactory position. Cardiomegaly with basilar airspace disease, left greater than right. Real Marie MD Objective Remarks GENERAL: 41-year-old male, tolerating extubation. SKIN: Warm and dry. HEENT: normocephalic, atraumatic. pupils 3 mm, equal, reactive. NECK: Trachea midline. Airway widely patent. CARDIOVASCULAR: normal rate, regular rhythm. no appreciable murmurs, no JVD. RESPIRATORY: Few secretions, strong cough. No wheezes. Breath sounds equal bilaterally. GASTROINTESTINAL: Abdomen soft, non-tender, mildly distended. No guarding. BS active. MUSCULOSKELETAL: Extremities without edema. No obvious deformities. distal pulses 2+ well perfused. NEUROLOGICAL: Moves 4 limbs with great strength, confused, agitated. A/P Assessment and Plan Assessment: 41yM initially found unresponsive with +etoh, opiate, hospital course complicated by severe and life-threatening agitated delirium likely from substance withdrawal, and acute hypoxic respiratory failure. Neuro/Psych: Life-threatening agitated delirium Alcohol dependence Positive opiate toxicology screen History of depression Substance withdraw, possible etoh withdraw. Goal of RASS 0, continued Precedex and PRN Fentnayl/versed for goal RASS -- hold PO Seroquel, clonidine, guanfacine, valium for now. -- 03/23/16 Start Clonidine patch 0.6 mg/24 hr. Start Geodon 10 mg IM q12 -- will likely need ongoing alpha 2 agonism and RYAN for withdraw symptoms. --Increase geodon to 20 im bid. EtOH level on admission was 281. Started on thiamine/folate and multivitamin CV: Sinus tachycardia- resolved Likely secondary to withdrawal symptoms. Currently on normal saline at 84 cc an hour. Currently not requiring vasopressors and/or antihypertensives. IV Bumex 2 mg x1 for fluid overload Resp: Acute hypoxemic respiratory failure Acute Lung Injury secondary to aspiration pneumonia On NRB, continue aggressive pulmonary toilet Extubated 03/22/16. CXR today shows increasing bilateral predominantly perihilar infiltrates Check ABG, may need intubation. (Not a candidate for BiPAP) Bronchodilator therapy every 6 hours and as needed Possible aspiration component to respiratory failure and Acute lung injury Improved aeration 03/24 Extubated. GI: Acute protein calorie malnutrition Extubated yesterday, attempt at replacing NG tube. Could be difficult due to severe agitation MiraLAX and Lactulose for goal daily bowel movements. Protonix for GI prophylaxis Colace/as needed Senokot for bowel regimen : Continue henson for accurate I/Os. Endo: Sliding-scale insulin with Accu-Cheks every 6 hours to maintain euglycemia. Low regimen Renal: Creatinine currently within normal limits. Accurate I's and O's Monitor urine output closely Heme: Macrocytosis Follow CBC/coags. Monitor trends ID: Likely aspiration pneumonia No cultures positive, de-escalate all abx, reculture for fevers. FEN: Hypokalemia Replace electrolytes per ICU protocol. MSK: History of nasal fracture Access - Utilize peripheral IV. Peripheral iv. Prophylaxis - GI - Protonix - DVT - SCD/Lovenox. Overall impression: Try atypical antipsychotics plus alpha 2 agonists, taper off precedex. Cesar Freire MD Mar 25, 2016 15:37
[2016-03-25] MEDS ORDERED: ZIPRASIDONE MESYLATE 20 MG VIAL IM SCH (16:00)
[2016-03-25] MEDS: DEXMEDETOMIDINE INJ 1,000 MCG in SODIUM CHLOR 0.9% 250 ML INJ 240 ML IV SCH ×2 (19:49→22:58)
[2016-03-25] MEDS: hydrALAZINE HCL 20 MG/ML VIAL IV PRN (22:14)
[2016-03-26] VITALS (14 sets, daily range): BP systolic 117–160; BP diastolic 76–92; PULSE 59–87; RESP 16–28; TEMP 97–98.7; O2SAT 92–100
[2016-03-26] MEDS: LORazepam 2 MG/ML VIAL IV PUSH PRN (01:01)
[2016-03-26] MEDS: hydrALAZINE HCL 20 MG/ML VIAL IV PRN (02:52)
[2016-03-26] MEDS: RESP: ALBUTEROL 2.5 MG/IPRATROPIUM 0.5 MG NEB (SCH) INH ×2 (03:41→10:00)
[2016-03-26] MEDS: ZIPRASIDONE MESYLATE 20 MG VIAL IM SCH ×4 (03:43→22:02)
[2016-03-26] MEDS: CHLORHEXIDINE GLUCONATE 2 % 1 PACK (2 CLOTHS) TOP SCH (04:00)
[2016-03-26 04:18] LABS: HEMATOCRIT 39.9 % (39.0-51.0); MEAN CELL VOLUME 101.8 FL (80.0-100.0); MEAN CORPUSCULAR HEMOGLOBIN 34.9 PG (27.0-34.0); MEAN CORPUSCULAR HGB CONC 34.3 % (32.0-36.0); PLATELET COUNT 200 TH/MM3 (150-450); RED BLOOD COUNT 3.92 MIL/MM3 (4.50-5.90); RED CELL DISTRIBUTION WIDTH 13.2 % (11.6-17.2); REVIEW FLAG FINAL; WHITE BLOOD COUNT 7.9 TH/MM3 (4.0-11.0)
[2016-03-26 04:41] LABS: BICARBONATE 21.5 MEQ/L (21.0-32.0)
[2016-03-26] MEDS: DIAZEPAM 10 MG TAB PO SCH (06:27)
[2016-03-26] MEDS: FOLIC ACID 1 MG TAB PO SCH (07:38)
[2016-03-26] MEDS: MULTIVITAMIN TAB PO SCH (07:38)
[2016-03-26] MEDS: POTASSIUM CHLOR 20 MEQ PREMIX 100 ML IV PRN ×2 (07:38→10:35)
[2016-03-26] MEDS: THIAMINE INJ 100 MG in SODIUM CHLORIDE 0.9% INJ 100 ML IV SCH (07:39)
--- NOTE | 2016-03-26 08:14 | HHI.CCPN ---
Subjective Remarks/Hospital Course Hospital Course: This is a 41-year-old male. Date of admission 03/19/2016 past medical history includes posterior max stress disorder/depression. No history of alcohol and polysubstance abuse per records. He arrives to [facility] He was found face down in public an undisclosed location. He was given Narcan 0.4 mg 5 and routine was Ambu bag. His GCS remained 3 throughout the EMS transport and while in the ER. Upon arrival to the ER the patient had wide-open pupils however he had no gag reflex his GCS was 3. His O2 sat was about 99% on nonrebreather mask. Pupils were equal and reactive to light and about 4 mm at baseline. He was intubated shortly following arrival using 20 mg etomidate and 50 rocuronium. Laboratories revealed a macrocytosis and hypokalemia otherwise unremarkable. Toxin positive for EtOH of [address] head currently pending. 6 revealed bilateral lobe open fractures possibly aspiration. He received 500 mg azithromycin 1 g Rocephin ED for antibiotic's. Blood cultures 2 were drawn. We are asked to admit Subjective: 03/20: extubated yesterday after his mental status improved. However, overnight, became acutely agitated, likely withdrawing from substances, then became hypoxic. required reintubation. This morning, still severely agitated despite fentanyl and propofol. 03/21: still persistently agitated yesterday, despite maximal sedation regimen. still CAM+. required versed infusion overnight and prn Librium as well. Also had high gastric residuals yesterday. 03/22: agitated overnight. required increasing doses of fentanyl, propofol, versed. this morning, followed commands for me. intermittently agitated. 03/23: Remains severely agitated. On Precedex 2 g per KG per hour. I will start scheduled Geodon IM, in attempt to reduce Precedex. Start Clonidine patch for consistent delivery due to agitation and refusal to take PO. CXR shows increasing bilateral predominantly perihilar infiltrates 03/24: Calm now, somnolent. Protects airway. Will adjust psych meds and hopefully transition to outpatient regimen. 03/25: Agitated and confused. Recent detox from ETOH and opiates. 03/26: Severe agitation interspersed with somnolence. Need to find a medication regimen appropriated for his lability. Objective Vital Signs Date Time Temp Pulse Resp B/P Pulse Ox O2 Delivery O2 Flow Rate FiO2 03/26/16 06:00 70 03/26/16 04:00 98.4 23 133/83 97 03/25/16 21:58 21 03/25/16 19:00 Nasal Cannula 4.00 Intake and Output 03/25/16 03/25/16 03/26/16 08:00 16:00 00:00 Intake Total 749 ml 1435 ml 811 ml Output Total 750 ml 800 ml 1350 ml Balance -1 ml 635 ml -539 ml Result Diagram: 03/26/16 0333 03/26/16 0333 Imaging Last Impressions Chest X-Ray 03/18/162215 Signed Impressions: Service Date/Time: Friday, March 18, 2016 20:29 - CONCLUSION: 1. Endotracheal tube and nasogastric tube in satisfactory position. Cardiomegaly with basilar airspace disease, left greater than right. Real Marie MD Objective Remarks GENERAL: 41-year-old male. SKIN: Warm, dry. HEENT: normocephalic, atraumatic. pupils 3 mm, equal, reactive. NECK: Trachea midline. Airway widely patent. CARDIOVASCULAR: normal rate, regular rhythm. no appreciable murmurs, no JVD. RESPIRATORY: Few mobile secretions, strong cough. No wheezes. Breath sounds equal bilaterally. GASTROINTESTINAL: Abdomen soft, non-tender, mildly distended. No guarding. BS active. MUSCULOSKELETAL: Extremities without edema. No obvious deformities, well perfused. NEUROLOGICAL: Moves 4 limbs with great strength, confused, agitated. A/P Assessment and Plan Assessment: 41yM initially found unresponsive with +etoh, opiate, hospital course complicated by severe and life-threatening agitated delirium likely from substance withdrawal, and acute hypoxic respiratory failure. Neuro/Psych: Life-threatening agitated delirium Alcohol dependence Positive opiate toxicology screen History of depression Substance withdraw, possible etoh withdraw. Goal of RASS 0, continued Precedex and PRN Fentnayl/versed for goal RASS -- hold PO Seroquel, clonidine, guanfacine, valium for now. -- 03/23/16 Start Clonidine patch 0.6 mg/24 hr. Start Geodon 10 mg IM q12 -- will likely need ongoing alpha 2 agonism and RYAN for withdraw symptoms. --Increase geodon to 10 im q6h. EtOH level on admission was 281. Started on thiamine/folate and multivitamin CV: Sinus tachycardia- resolved Likely secondary to withdrawal symptoms. Currently on normal saline at 84 cc an hour. Currently not requiring vasopressors and/or antihypertensives. Resp: Acute hypoxemic respiratory failure Acute Lung Injury secondary to aspiration pneumonia On NRB, continue aggressive pulmonary toilet Extubated 03/22/16. CXR today shows increasing bilateral predominantly perihilar infiltrates Check ABG, may need intubation. (Not a candidate for BiPAP) Bronchodilator therapy every 6 hours and as needed Possible aspiration component to respiratory failure and Acute lung injury Improved aeration 03/24 Extubated. GI: Acute protein calorie malnutrition Extubated yesterday, attempt at replacing NG tube. Could be difficult due to severe agitation MiraLAX and Lactulose for goal daily bowel movements. Protonix for GI prophylaxis Colace/as needed Senokot for bowel regimen : Continue henson for accurate I/Os. Endo: Sliding-scale insulin with Accu-Cheks every 6 hours to maintain euglycemia. Low regimen Renal: Creatinine currently within normal limits. Accurate I's and O's Monitor urine output closely Heme: Macrocytosis Follow CBC/coags. Monitor trends ID: Likely aspiration pneumonia No cultures positive, de-escalate all abx, reculture for fevers. FEN: Hypokalemia Replace electrolytes per ICU protocol. MSK: History of nasal fracture Access - Utilize peripheral IV. Peripheral iv. Prophylaxis - GI - Protonix - DVT - SCD/Lovenox. Overall impression: Try atypical antipsychotics plus alpha 2 agonists, taper off precedex. Augment with ativan for episodic agitation. Consult psych for suggestions. Cesar Freire MD Mar 26, 2016 08:14
[2016-03-26] MEDS: DOCUSATE SODIUM 100 MG CAP PO SCH ×2 (09:00→20:52)
[2016-03-26] MEDS: POLYETHYLENE GLYCOL 17 GM PKG PO SCH ×2 (09:00→20:52)
[2016-03-26] MEDS: LACTULOSE SYRUP 20 GM/30 ML CUP PO SCH ×2 (09:00→20:51)
[2016-03-26] MEDS: BISACODYL 10 MG SUPP RECTAL SCH (09:00)
[2016-03-26] MEDS: SODIUM CHLORIDE 0.9% FLUSH 5 ML FLUSH IV FLUSH SCH ×2 (09:00→20:52)
[2016-03-26] MEDS: DEXMEDETOMIDINE INJ 1,000 MCG in SODIUM CHLOR 0.9% 250 ML INJ 240 ML IV SCH (09:06)
[2016-03-26] MEDS: ENOXAPARIN SODIUM 40 MG/0.4 ML SYRINGE SQ SCH (10:41)
[2016-03-26] MEDS: SODIUM CHLOR 0.9% 1000 ML INJ 1,000 ML IV SCH ×2 (11:32→22:02)
[2016-03-26] MEDS: clonazePAM 1 MG TAB PO SCH ×2 (15:00→22:02)
--- NOTE | 2016-03-26 15:15 | PD.CONS ---
Provisional Diagnosis Admission Date Mar 19, 2016 at 00:40 [place] I. Polysubstance dependence, including alcohol, benzodiazepines, opiates, history of anxiety, PTSD [place] II. Unspecified personality disorder, rule out antisocial [place] III. He denies prominent medical history [place] IV. History of incarcerations, polysubstance dependence [place] V. 55 History of Present Illness Service Psychiatry Consult Requested By Primary Care Physician Unknown HPI The patient is a 41-year-old man, domiciled with family in [place] , recently moved from [place], unemployed, with psychiatric history of PTSD, anxiety, depression, psychiatric hospitalizations, last hospitalization was in [place] in 2016, several ER visits for medication refill of clonazepam, history of self cutting behavior, aggressive behavior, previous incarcerations, the longest one for 15 years, no significant medical history, who arrives to [facility] He was found face down in public an undisclosed location. He was given Narcan 0.4 mg 5 and routine was Ambu bag. His GCS remained 3 throughout the EMS transport and while in the ER. Upon arrival to the ER the patient had wide-open pupils however he had no gag reflex his GCS was 3. His O2 sat was about 99% on nonrebreather mask. Pupils were equal and reactive to light and about 4 mm at baseline. He was intubated shortly following arrival using 20 mg etomidate and 50 rocuronium.Laboratories revealed a macrocytosis and hypokalemia otherwise unremarkable. Toxin positive for EtOH of [address] head currently pending. 6 revealed bilateral lobe open fractures possibly aspiration. He received 500 mg azithromycin 1 g Rocephin ED for antibiotic's. Blood cultures 2 were drawn. Patient was a stepdown to medical floor, where he has been presenting periods of agitation, aggressive behavior toward staff, was restrained in 4 point sedated with midazolam. On psychiatric evaluation today patient was found superficially cooperative, sedated, restrained in 4 point, but able to provide some information for this psychotic assessment. Patient is fully oriented 3, some episodic confusion. He said that he has been doing fine, but he has been upset because the medical doctor don't want to give him his medication. Patient has been requesting medication for pain and also for anxiety. Patient endorses daily use of heroine and alcohol, unable to quantify at this moment, he states"a lot for many years", he says that he uses this drug because he has been unable to get an is steady prescribed for his psychotropic. When he was asked what are the psychotropics medication he has been prescribing the past, he just mention Xanax and clonazepam. At this moment the patient reports depressed mood, acute anxiety, but he denies suicidal or homicidal ideation, he denies visual and auditory hallucinations. Review of Systems Constitutional: DENIES: Diaphoretic episodes, Fatigue, Fever, Weight gain, Weight loss, Chills, Dizziness, Change in appetite, Night Sweats Endocrine: DENIES: Heat/cold intolerance, Polydipsia, Polyuria, Polyphagia Eyes: DENIES: Blurred vision, Diplopia, Eye inflammation, Eye pain, Vision loss , Photosensitivity, Double Vision Ears, nose, mouth, throat: DENIES: Tinnitus, Hearing loss, Vertigo, Nasal discharge, Oral lesions, Throat pain, Hoarseness, Ear Pain, Running Nose, Epistaxis, Sinus Pain, Toothache, Odynophagia Respiratory: DENIES: Apneas, Cough, Snoring, Wheezing, Hemoptysis, Sputum production, Shortness of breath Genitourinary: DENIES: Sexual dysfunction, Urinary frequency, Urinary incontinence, Urgency, Hematuria, Dysuria, Nocturia, Penile Discharge, Testicular Pain, Testicular Swelling Musculoskeletal: DENIES: Joint pain, Muscle aches, Stiffness, Joint Swelling, Back pain, Neck pain Integumentary: DENIES: Abnormal pigmentation, Nail changes, Pruritus, Rash Hematologic/lymphatic: DENIES: Bruising, Lymphadenopathy Immunologic/allergic: DENIES: Eczema, Urticaria Psychiatric: COMPLAINS OF: Anxiety, Confusion, Depression Past Family Social History Coded Allergies: *MDRO Multi-Drug Resistant Organism (Verified Adverse Reaction, Unknown, 01/05/16) MRSA arm wound 09/2014. Active Scripts Hydrocodone-Acetaminophen (Lortab)7.5-325 Mg Tab1 Tab PO Q4H PRN (PAIN) #30 TAB Ref 0 Prov:Lyndon Laguna MD 01/05/16 Penicillin V Potassium 500 Mg Sgr232 Mg PO Q6H 28 Days Ref 0 Prov:Lyndon Laguna MD 01/05/16 Reported Medications Clonazepam (Klonopin)0.5 Mg Tab0.5 Mg PO DIRECTED #60 TAB Ref 0 01/05/16 Current Medications Medications (Trade) Dose Ordered Sig/Neptali Route Start Time Stop Time Status Last Admin (Thiamine Inj/NS Inj) 101 ml @ 101 mls/hr DAILY IV 03/19/16 09:00 03/26/16 07:39 (Folate) 1 mg DAILY PO 03/19/16 09:00 03/26/16 07:38 Multivitamins 1 tab 1 tab DAILY PO 03/19/16 09:00 03/26/16 07:38 (NS 1000 ml Inj) 1,000 ml @ 84 mls/hr [id number] IV 03/19/16 00:47 03/25/16 22:15 (NS Flush) 2 ml UNSCH PRN IV FLUSH 03/19/16 01:00 (NS Flush) 2 ml BID IV FLUSH 03/19/16 09:00 03/26/16 09:00 (Tylenol) 650 mg Q6H PRN PO 03/19/16 01:00 03/21/16 14:51 (Tears Naturale Opth Soln) 1 drop TID EACH EYE 03/19/16 09:00 03/24/16 18:20 (Zofran Inj) 4 mg Q6H PRN IV 03/19/16 01:00 (Colace) 100 mg BID PO 03/19/16 09:00 03/26/16 09:00 (Senokot) 17.2 mg Q12H PRN PO 03/19/16 01:00 Miscellaneous Information 1 Q361D XX 03/19/16 01:00 (Chlorhexidine 2% Cloth) Taper DAILY@04 TOP 03/19/16 04:00 03/15/17 03:59 03/25/16 04:00 (Chlorhexidine 2% Cloth) 3 pack UNSCH PRN TOP 03/19/16 01:00 Dextrose 25 ml 25 ml UNSCH PRN IV PUSH 03/19/16 01:00 Potassium Chloride 100 ml @ 50 mls/hr Q2H PRN IV 03/19/16 01:15 (KCl 20 Meq Premix Inj) 100 ml @ 50 mls/hr Q2H PRN IV 03/19/16 01:15 03/26/16 10:35 Potassium Chloride 40 meq 40 meq UNSCH PRN PO/TUBE 03/19/16 01:15 Potassium Chloride 100 ml @ 25 mls/hr UNSCH PRN IV 03/19/16 01:15 Potassium Chloride 100 ml @ 50 mls/hr Q2H PRN IV 03/19/16 01:15 03/25/16 06:24 (Magnesium Sulfate Inj/NS Inj) 100 ml @ 50 mls/hr UNSCH PRN IV 03/19/16 01:15 Magnesium Oxide 800 mg 800 mg UNSCH PRN PO 03/19/16 01:15 (Magnesium Sulfate Inj/NS Inj) 100 ml @ 50 mls/hr UNSCH PRN IV 03/19/16 01:15 Potassium Phosphate 2000 mg 2,000 mg Q4H PRN PO 03/19/16 01:15 (Sodium Phosphate Inj/NS 250 ml Inj) 250 ml @ 42 mls/hr UNSCH PRN IV 03/19/16 01:15 (KCl 40 Meq/30 ml Liq) 40 meq UNSCH PRN PO/TUBE 03/19/16 01:15 03/20/16 10:00 Potassium Phosphate 2000 mg 2,000 mg UNSCH PRN PO/TUBE 03/19/16 01:15 (Potassium Phosphate Inj/NS 250 ml Inj) 260 ml @ 42 mls/hr UNSCH PRN IV 03/19/16 01:15 (Catapres) 0.3 mg Q8HR PO 03/20/16 14:00 Hold 03/22/16 15:15 (Lovenox Inj) 40 mg Q24H SQ 03/20/16 10:00 03/26/16 10:41 (Dulcolax Supp) 10 mg DAILY RECTAL 03/21/16 09:00 03/22/16 08:55 (Miralax) 17 gm BID PO 03/21/16 09:00 03/23/16 21:18 Lactulose 30 ml 30 ml BID PO 03/21/16 09:00 03/23/16 21:18 (Precedex Inj/NS 250 ml Inj) 250 ml @ 0 mls/hr TITRATE IV 03/21/16 13:15 03/26/16 09:06 (Trandate Inj) 20 mg Q1H PRN IV 03/21/16 14:45 03/21/16 16:02 (Versed Inj) 5 mg Q1H PRN IV 03/21/16 15:30 03/23/16 18:40 (Ativan Inj) 4 mg Q15M PRN IV PUSH 03/22/16 15:00 03/26/16 01:01 (Ofirmev Inj) 1,000 mg Q8H PRN IV 03/22/16 18:15 03/24/16 01:56 (Catapres-Tts 0.3 Mg Patch.7d) 2 patch Q7D TD 03/23/16 09:00 03/23/16 10:28 Miscellaneous Information 1 Q7D T-DERMAL 03/30/16 09:00 (Apresoline Inj) 10 mg Q4H PRN IV 03/24/16 11:15 03/26/16 02:52 (Geodon Inj) 10 mg Q6H IM 03/25/16 22:00 03/26/16 10:41 Family History He states his sister is bipolar Social History Patient was born and raised in [place], in the last years he has been living part of the time [place], and another part of the time in [place], he is now living with his family is in [place], his unemployed, , but , his highest level of education is GED, Physical Exam Vital Signs Vital Signs Date Time Temp Pulse Resp B/P Pulse Ox O2 Delivery O2 Flow Rate FiO2 03/26/16 06:00 70 03/26/16 04:00 98.4 23 133/83 97 03/25/16 21:58 21 03/25/16 19:00 Nasal Cannula 4.00 I/O 03/25/16 03/25/16 03/26/16 08:00 16:00 00:00 Intake Total 749 ml 1435 ml 811 ml Output Total 750 ml 800 ml 1350 ml Balance -1 ml 635 ml -539 ml Mental Status Examination Appearance man, age appearing, restraint in 4-point, multiple tattoos, just superficially cooperative, he is calm Speech: Hesitant Orientation: x3 Memory: Unremarkable Thought Process: Logical Thought Content: Unremarkable Hallucination Type: None Attention and Concentration: Good Suicidal Ideation: No Previous Suicide Attempts: No Homicidal Ideation: No Previous Homicide Attempts: No Judgement: WNL Affect: Irritable Mood: Sad Motor Activity: Normal gait Assessment & Plan Problem List: (1) Adjustment disorder with disturbance of conduct Assessment & Plan: The patient is a 41-year-old man, domiciled with family in [place], recently moved from [place], unemployed, with psychiatric history of PTSD, anxiety, depression, psychiatric hospitalizations, last hospitalization was in [place] in 2016, several ER visits for medication refill of clonazepam, history of self cutting behavior, aggressive behavior, previous incarcerations, the longest one for 15 years, no significant medical history, who arrives to [facility] He was found face down in public an undisclosed location. On psychiatric evaluation today patient is restrained in 4 points, he has been agitated, disorganized, confused aggressive towards staff , demanding medications for pain, benzodiazepines. He reports depression and anxiety related with his medical situation, and also to the fact that he has not been given the medication that he has been asking for. He denies suicidal or homicidal ideation, he denies visual and auditory hallucinations. Patient is fully oriented 3 at this moment. Due to his history aggressive behavior, incarcerations, drug-seeking behavior, polysubstance abuse, patient definitely have a very increased risk for aggressive behavior. He should be in assault precautions. To keep patient anxiety, insomnia and depression control will order clonazepam 1 mg every 8 hours, and trazodone 100 mg at bedtime, agree with Geodon 20 mg IM every 8 hours when necessary aggressive behavior and agitation. Avoid to medicate the patient with additional/unnecessary anticholinergics, benzodiazepines, narcotics. The patient does not meet criteria for psychiatric admission. Extensive psychoeducation, support, motivation provided. ICD Code: F43.24 Assessment & Plan Estimated LOS: days Jose Garcia MD Mar 26, 2016 15:15
[2016-03-26] MEDS: RESP: ALBUTEROL 2.5 MG/IPRATROPIUM 0.5 MG NEB (PRN) INH ×2 (16:42→20:57)
[2016-03-26] MEDS: traZODone HCL 100 MG TAB PO SCH (22:02)
[2016-03-27] VITALS (12 sets, daily range): BP systolic 119–142; BP diastolic 69–82; PULSE 61–84; RESP 23–28; TEMP 97.7–99.3; O2SAT 94–99
[2016-03-27] MEDS: CHLORHEXIDINE GLUCONATE 2 % 1 PACK (2 CLOTHS) TOP SCH (03:13)
[2016-03-27] MEDS: DEXMEDETOMIDINE INJ 1,000 MCG in SODIUM CHLOR 0.9% 250 ML INJ 240 ML IV SCH (03:20)
[2016-03-27] MEDS: clonazePAM 1 MG TAB PO SCH ×3 (05:12→20:57)
[2016-03-27] MEDS: ZIPRASIDONE MESYLATE 20 MG VIAL IM SCH ×4 (05:13→20:57)
[2016-03-27] MEDS: DOCUSATE SODIUM 100 MG CAP PO SCH ×2 (09:00→20:16)
[2016-03-27] MEDS: LACTULOSE SYRUP 20 GM/30 ML CUP PO SCH ×2 (09:00→20:17)
[2016-03-27] MEDS: SODIUM CHLORIDE 0.9% FLUSH 5 ML FLUSH IV FLUSH SCH ×2 (09:00→20:17)
[2016-03-27] MEDS: POLYETHYLENE GLYCOL 17 GM PKG PO SCH ×2 (09:00→20:17)
[2016-03-27] MEDS: MULTIVITAMIN TAB PO SCH (09:00)
[2016-03-27] MEDS: FOLIC ACID 1 MG TAB PO SCH (09:00)
[2016-03-27] MEDS: BISACODYL 10 MG SUPP RECTAL SCH (09:00)
[2016-03-27] MEDS: ENOXAPARIN SODIUM 40 MG/0.4 ML SYRINGE SQ SCH (09:00)
[2016-03-27] MEDS: THIAMINE INJ 100 MG in SODIUM CHLORIDE 0.9% INJ 100 ML IV SCH (09:01)
[2016-03-27] MEDS: ARTIFICIAL TEARS OPTH SOLN 15 ML BTL EACH EYE SCH ×2 (09:03→13:00)
[2016-03-27] MEDS: SODIUM CHLOR 0.9% 1000 ML INJ 1,000 ML IV SCH ×2 (10:50→23:29)
--- NOTE | 2016-03-27 14:13 | HHI.CCPN ---
Subjective Remarks/Hospital Course Hospital Course: This is a 41-year-old male. Date of admission 03/19/2016 past medical history includes posterior max stress disorder/depression. No history of alcohol and polysubstance abuse per records. He arrives to [facility] He was found face down in public an undisclosed location. He was given Narcan 0.4 mg 5 and routine was Ambu bag. His GCS remained 3 throughout the EMS transport and while in the ER. Upon arrival to the ER the patient had wide-open pupils however he had no gag reflex his GCS was 3. His O2 sat was about 99% on nonrebreather mask. Pupils were equal and reactive to light and about 4 mm at baseline. He was intubated shortly following arrival using 20 mg etomidate and 50 rocuronium. Laboratories revealed a macrocytosis and hypokalemia otherwise unremarkable. Toxin positive for EtOH of [address] head currently pending. 6 revealed bilateral lobe open fractures possibly aspiration. He received 500 mg azithromycin 1 g Rocephin ED for antibiotic's. Blood cultures 2 were drawn. We are asked to admit Subjective: 03/20: extubated yesterday after his mental status improved. However, overnight, became acutely agitated, likely withdrawing from substances, then became hypoxic. required reintubation. This morning, still severely agitated despite fentanyl and propofol. 03/21: still persistently agitated yesterday, despite maximal sedation regimen. still CAM+. required versed infusion overnight and prn Librium as well. Also had high gastric residuals yesterday. 03/22: agitated overnight. required increasing doses of fentanyl, propofol, versed. this morning, followed commands for me. intermittently agitated. 03/23: Remains severely agitated. On Precedex 2 g per KG per hour. I will start scheduled Geodon IM, in attempt to reduce Precedex. Start Clonidine patch for consistent delivery due to agitation and refusal to take PO. CXR shows increasing bilateral predominantly perihilar infiltrates 03/24: Calm now, somnolent. Protects airway. Will adjust psych meds and hopefully transition to outpatient regimen. 03/25: Agitated and confused. Recent detox from ETOH and opiates. 03/26: Severe agitation interspersed with somnolence. Need to find a medication regimen appropriated for his lability. 03/27: Appreciate input from Psychiatry Service. Conversant on Klonopin 2 mg po tid. Taper off precedex Objective Vital Signs Date Time Temp Pulse Resp B/P Pulse Ox O2 Delivery O2 Flow Rate FiO2 03/27/16 12:00 82 03/27/16 12:00 98.8 24 132/78 96 03/27/16 07:00 Room Air 03/26/16 21:03 21 03/25/16 19:00 4.00 Intake and Output 03/26/16 03/26/16 03/27/16 08:00 16:00 00:00 Intake Total 1002 ml 1090 ml 1031 ml Output Total 1775 ml 100 ml 1000 ml Balance -773 ml 990 ml 31 ml Result Diagram: 03/26/16 0333 03/26/16 0333 Imaging Last Impressions Chest X-Ray 03/18/162215 Signed Impressions: Service Date/Time: Friday, March 18, 2016 20:29 - CONCLUSION: 1. Endotracheal tube and nasogastric tube in satisfactory position. Cardiomegaly with basilar airspace disease, left greater than right. Real Marie MD Objective Remarks GENERAL: 41-year-old male. SKIN: Warm, dry. HEENT: normocephalic, atraumatic. pupils 3 mm, equal, reactive. NECK: Trachea midline. Airway widely patent. CARDIOVASCULAR: normal rate, regular rhythm. no appreciable murmurs, no JVD. RESPIRATORY: Few mobile secretions, strong cough. No wheezes. Breath sounds equal bilaterally. GASTROINTESTINAL: Abdomen soft, non-tender, mildly distended. No guarding. BS active. MUSCULOSKELETAL: Extremities without edema. No obvious deformities, well perfused. NEUROLOGICAL: Moves 4 limbs with great strength, O X 3 today.. A/P Assessment and Plan Assessment: 41y M initially found unresponsive with +etoh, opiate, hospital course complicated by severe and life-threatening agitated delirium likely from substance withdrawal, and acute hypoxic respiratory failure. Neuro/Psych: Life-threatening agitated delirium Alcohol dependence Positive opiate toxicology screen History of depression Substance withdraw, possible etoh withdraw. Goal of RASS 0, continued Precedex and PRN Fentnayl/versed for goal RASS -- hold PO Seroquel, clonidine, guanfacine, valium for now. -- 03/23/16 Start Clonidine patch 0.6 mg/24 hr. Start Geodon 10 mg IM q12 -- will likely need ongoing alpha 2 agonism and RYAN for withdraw symptoms. --Increase geodon to 10 im q6h. EtOH level on admission was 281. Started on thiamine/folate and multivitamin CV: Sinus tachycardia- resolved Likely secondary to withdrawal symptoms. Currently on normal saline at 84 cc an hour. Currently not requiring vasopressors and/or antihypertensives. Resp: Acute hypoxemic respiratory failure Acute Lung Injury secondary to aspiration pneumonia On NRB, continue aggressive pulmonary toilet Extubated 03/22/16. CXR today shows increasing bilateral predominantly perihilar infiltrates Check ABG, may need intubation. (Not a candidate for BiPAP) Bronchodilator therapy every 6 hours and as needed Possible aspiration component to respiratory failure and Acute lung injury Improved aeration 03/24 Extubated. GI: Acute protein calorie malnutrition Extubated yesterday, attempt at replacing NG tube. Could be difficult due to severe agitation MiraLAX and Lactulose for goal daily bowel movements. Protonix for GI prophylaxis Colace/as needed Senokot for bowel regimen : Continue henson for accurate I/Os. Endo: Sliding-scale insulin with Accu-Cheks every 6 hours to maintain euglycemia. Low regimen Renal: Creatinine currently within normal limits. Accurate I's and O's Monitor urine output closely Heme: Macrocytosis Follow CBC/coags. Monitor trends ID: Likely aspiration pneumonia No cultures positive, de-escalate all abx, reculture for fevers. FEN: Hypokalemia Replace electrolytes per ICU protocol. MSK: History of nasal fracture Access - Utilize peripheral IV. Peripheral iv. Prophylaxis - GI - Protonix - DVT - SCD/Lovenox. Overall impression: Finally calm on klonopin and geodon. Transfer, fine tune psych meds. Cesar Freire MD Mar 27, 2016 14:13
--- NOTE | 2016-03-27 15:08 | PD.TRANSFR ---
Transfer Summary Admission Date Mar 19, 2016 at 00:40 Transfer Date: Mar 28, 2016 Admitting Diagnosis Unresponsive/AMS, Opioid OD Diagnoses: (1) Acute respiratory failure Diagnosis: Principal (2) Macrocytosis without anemia Diagnosis: Principal (3) Opiate use Diagnosis: Principal (4) Hypokalemia Diagnosis: Principal (5) Altered mental status, unspecified Diagnosis: Principal Transfer Summary/Subjective ETOH and narcotic OD requiring intubation. Extubated 3 days ago, finally calm on klonopin and geodon. See psychiatry consultation. Objective Vital Signs Date Time Temp Pulse Resp B/P Pulse Ox O2 Delivery O2 Flow Rate FiO2 03/27/16 14:00 70 03/27/16 12:00 98.8 24 132/78 96 03/27/16 07:00 Room Air 03/26/16 21:03 21 03/25/16 19:00 4.00 Intake and Output 03/26/16 03/26/16 03/27/16 08:00 16:00 00:00 Intake Total 1002 ml 1090 ml 1031 ml Output Total 1775 ml 100 ml 1000 ml Balance -773 ml 990 ml 31 ml Result Diagram: 03/26/16 0333 03/26/16 0333 Imaging Last Impressions Chest X-Ray 03/18/162215 Signed Impressions: Service Date/Time: Friday, March 18, 2016 20:29 - CONCLUSION: 1. Endotracheal tube and nasogastric tube in satisfactory position. Cardiomegaly with basilar airspace disease, left greater than right. Real Marie MD Objective Remarks GENERAL: 41-year-old male. SKIN: Warm, dry. HEENT: normocephalic, atraumatic. pupils 3 mm, equal, reactive. NECK: Trachea midline. Airway widely patent. CARDIOVASCULAR: normal rate, regular rhythm. no appreciable murmurs, no JVD. RESPIRATORY: Few mobile secretions, strong cough. No wheezes. Breath sounds equal bilaterally. GASTROINTESTINAL: Abdomen soft, non-tender, mildly distended. No guarding. BS active. MUSCULOSKELETAL: Extremities without edema. No obvious deformities, well perfused. NEUROLOGICAL: Moves 4 limbs with great strength, O X 3 today.. A/P Assessment and Plan Assessment: 41y M initially found unresponsive with +etoh, opiate, hospital course complicated by severe and life-threatening agitated delirium likely from substance withdrawal, and acute hypoxic respiratory failure. Neuro/Psych: Life-threatening agitated delirium Alcohol dependence Positive opiate toxicology screen History of depression Substance withdraw, possible etoh withdraw. Goal of RASS 0, continued Precedex and PRN Fentnayl/versed for goal RASS -- hold PO Seroquel, clonidine, guanfacine, valium for now. -- 03/23/16 Start Clonidine patch 0.6 mg/24 hr. Start Geodon 10 mg IM q12 -- will likely need ongoing alpha 2 agonism and RYAN for withdraw symptoms. --Increase geodon to 10 im q6h. EtOH level on admission was 281. Started on thiamine/folate and multivitamin CV: Sinus tachycardia- resolved Likely secondary to withdrawal symptoms. Currently on normal saline at 84 cc an hour. Currently not requiring vasopressors and/or antihypertensives. Resp: Acute hypoxemic respiratory failure Acute Lung Injury secondary to aspiration pneumonia On NRB, continue aggressive pulmonary toilet Extubated 03/22/16. CXR today shows increasing bilateral predominantly perihilar infiltrates Check ABG, may need intubation. (Not a candidate for BiPAP) Bronchodilator therapy every 6 hours and as needed Possible aspiration component to respiratory failure and Acute lung injury Improved aeration 03/24 Extubated. GI: Acute protein calorie malnutrition Extubated yesterday, attempt at replacing NG tube. Could be difficult due to severe agitation MiraLAX and Lactulose for goal daily bowel movements. Protonix for GI prophylaxis Colace/as needed Senokot for bowel regimen : Continue henson for accurate I/Os. Endo: Sliding-scale insulin with Accu-Cheks every 6 hours to maintain euglycemia. Low regimen Renal: Creatinine currently within normal limits. Accurate I's and O's Monitor urine output closely Heme: Macrocytosis Follow CBC/coags. Monitor trends ID: Likely aspiration pneumonia No cultures positive, de-escalate all abx, reculture for fevers. FEN: Hypokalemia Replace electrolytes per ICU protocol. MSK: History of nasal fracture Access - Utilize peripheral IV. Peripheral iv. Prophylaxis - GI - Protonix - DVT - SCD/Lovenox. Overall impression: Finally calm on klonopin and geodon. Transfer, fine tune psych meds. Cesar Freire MD Mar 27, 2016 15:08
[2016-03-27] MEDS: traZODone HCL 100 MG TAB PO SCH (20:57)
[2016-03-27] MEDS: hydrALAZINE HCL 20 MG/ML VIAL IV PRN (23:30)
[2016-03-28] VITALS (13 sets, daily range): BP systolic 119–138; BP diastolic 73–85; PULSE 63–103; RESP 21–28; TEMP 98.3–98.8; O2SAT 92–99
[2016-03-28] MEDS: DEXMEDETOMIDINE INJ 1,000 MCG in SODIUM CHLOR 0.9% 250 ML INJ 240 ML IV SCH (02:03)
[2016-03-28] MEDS: CHLORHEXIDINE GLUCONATE 2 % 1 PACK (2 CLOTHS) TOP SCH (02:22)
[2016-03-28] MEDS: ZIPRASIDONE MESYLATE 20 MG VIAL IM SCH ×2 (04:20→10:55)
[2016-03-28] MEDS: clonazePAM 1 MG TAB PO SCH ×3 (05:34→21:07)
[2016-03-28] MEDS: MULTIVITAMIN TAB PO SCH (08:08)
[2016-03-28] MEDS: FOLIC ACID 1 MG TAB PO SCH (08:08)
[2016-03-28] MEDS: ARTIFICIAL TEARS OPTH SOLN 15 ML BTL EACH EYE SCH ×3 (08:08→18:00)
[2016-03-28] MEDS: POLYETHYLENE GLYCOL 17 GM PKG PO SCH ×2 (08:09→21:00)
[2016-03-28] MEDS: THIAMINE INJ 100 MG in SODIUM CHLORIDE 0.9% INJ 100 ML IV SCH (08:09)
[2016-03-28] MEDS: DOCUSATE SODIUM 100 MG CAP PO SCH ×2 (08:09→21:00)
[2016-03-28] MEDS: LACTULOSE SYRUP 20 GM/30 ML CUP PO SCH ×2 (08:09→21:00)
[2016-03-28] MEDS: SODIUM CHLORIDE 0.9% FLUSH 5 ML FLUSH IV FLUSH SCH ×2 (08:09→21:00)
[2016-03-28] MEDS: BISACODYL 10 MG SUPP RECTAL SCH (08:09)
[2016-03-28] MEDS: ENOXAPARIN SODIUM 40 MG/0.4 ML SYRINGE SQ SCH (10:56)
[2016-03-28] MEDS: SODIUM CHLOR 0.9% 1000 ML INJ 1,000 ML IV SCH (11:17)
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
[2016-03-28] MEDS ORDERED: ZIPRASIDONE HCL 20 MG CAP PO SCH (21:00)
[2016-03-28] MEDS: traZODone HCL 100 MG TAB PO SCH (21:07)
[2016-03-29] VITALS: BP 126/76; PULSE 80; RESP 17; TEMP 99.1; O2SAT 98
[2016-03-29 04:00] VITALS: BP 129/61; PULSE 82; RESP 18; TEMP 98.3; O2SAT 96
[2016-03-29] MEDS: CHLORHEXIDINE GLUCONATE 2 % 1 PACK (2 CLOTHS) TOP SCH (04:00)
[2016-03-29] MEDS: clonazePAM 1 MG TAB PO SCH ×3 (05:12→20:50)
[2016-03-29 08:00] VITALS: BP 125/69; PULSE 71; RESP 14; TEMP 97.1; O2SAT 94
[2016-03-29 08:23] LABS: BICARBONATE 23.6 MEQ/L (21.0-32.0); MAGNESIUM 1.9 MG/DL (1.5-2.5)
[2016-03-29] MEDS: LACTULOSE SYRUP 20 GM/30 ML CUP PO SCH ×2 (09:00→20:48)
[2016-03-29] MEDS: BISACODYL 10 MG SUPP RECTAL SCH (09:00)
[2016-03-29] MEDS: DOCUSATE SODIUM 100 MG CAP PO SCH ×2 (09:00→20:48)
[2016-03-29] MEDS: POLYETHYLENE GLYCOL 17 GM PKG PO SCH ×2 (09:00→20:48)
[2016-03-29] MEDS: ENOXAPARIN SODIUM 40 MG/0.4 ML SYRINGE SQ SCH (10:00)
[2016-03-29] MEDS: FOLIC ACID 1 MG TAB PO SCH (10:06)
[2016-03-29] MEDS: MULTIVITAMIN TAB PO SCH (10:06)
[2016-03-29] MEDS: SODIUM CHLORIDE 0.9% FLUSH 5 ML FLUSH IV FLUSH SCH ×2 (10:07→20:50)
[2016-03-29 12:00] VITALS: BP 119/70; PULSE 65; RESP 16; TEMP 97.2; O2SAT 95
[2016-03-29] MEDS: ARTIFICIAL TEARS OPTH SOLN 15 ML BTL EACH EYE SCH ×3 (12:08→17:00)
[2016-03-29] MEDS: THIAMINE INJ 100 MG in SODIUM CHLORIDE 0.9% INJ 100 ML IV SCH (12:09)
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
[2016-03-29 16:00] VITALS: BP 107/69; PULSE 74; RESP 16; TEMP 98.6; O2SAT 98
[2016-03-29 20:00] VITALS: BP 119/72; PULSE 74; RESP 17; TEMP 98.9; O2SAT 95
[2016-03-29] MEDS: traZODone HCL 100 MG TAB PO SCH (20:49)
[2016-03-30] VITALS: BP 134/72; PULSE 52; RESP 17; TEMP 98.6; O2SAT 95
[2016-03-30] MEDS: CHLORHEXIDINE GLUCONATE 2 % 1 PACK (2 CLOTHS) TOP SCH (03:03)
[2016-03-30 04:00] VITALS: BP 131/67; PULSE 56; RESP 18; TEMP 97.6; O2SAT 95
[2016-03-30] MEDS: clonazePAM 1 MG TAB PO SCH (05:56)
[2016-03-30 08:00] VITALS: BP 145/90; PULSE 59; RESP 19; TEMP 98.6; O2SAT 96
[2016-03-30] MEDS: POLYETHYLENE GLYCOL 17 GM PKG PO SCH (09:00)
[2016-03-30] MEDS: BISACODYL 10 MG SUPP RECTAL SCH (09:00)
[2016-03-30] MEDS: DOCUSATE SODIUM 100 MG CAP PO SCH (09:00)
[2016-03-30] MEDS: LACTULOSE SYRUP 20 GM/30 ML CUP PO SCH (09:00)
[2016-03-30] MEDS ORDERED: THIAMINE HCL 100 MG TAB PO SCH (09:00)
[2016-03-30] MEDS ORDERED: POTASSIUM CHLORIDE 20 MEQ CONTROLLED RELEASE TAB PO SCH (09:00)
[2016-03-30] MEDS: cloNIDine HCL 0.3 MG/24 HR PATCH TD SCH (09:00)
[2016-03-30] MEDS ORDERED: REMOVE OLD PATCH T-DERMAL SCH (09:00)
[2016-03-30] MEDS: ARTIFICIAL TEARS OPTH SOLN 15 ML BTL EACH EYE SCH (09:12)
[2016-03-30] MEDS: FOLIC ACID 1 MG TAB PO SCH (09:12)
[2016-03-30] MEDS: MULTIVITAMIN TAB PO SCH (09:12)
[2016-03-30] MEDS: SODIUM CHLORIDE 0.9% FLUSH 5 ML FLUSH IV FLUSH SCH (09:12)
[2016-03-30] MEDS: ENOXAPARIN SODIUM 40 MG/0.4 ML SYRINGE SQ SCH (09:16)
[2016-03-30] MEDS ORDERED: CLON1 PO (11:56)
[2016-03-30] MEDS ORDERED: FOLI1TAB4 PO (11:56)
[2016-03-30] MEDS ORDERED: VITA100T2 PO (11:56)
[2016-03-30] MEDS ORDERED: K-TA10TA PO (17:07)
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
== END 2016-03-30 13:13 | disposition home or self-care (01) | DRG 917 ==
LOC: NEPE 21:57 → NEDA 03-19 00:40 → NEDH 03-19 07:27 → N03B 03-19 10:10 → HOCA 03-28 22:23
PROVIDERS: ADMIT Hospitalist; ATTEND Hospitalist
PROC: 5A1945Z Respiratory Ventilation, 24-96 Consecutive Hours (ICD-10-PCS; principal; 2016-03-19)
PROC: 0BH17EZ Insertion of Endotracheal Airway into Trachea, Via Natural or Artificial Opening (ICD-10-PCS; 2016-03-19)
PROC: 0BH17EZ Insertion of Endotracheal Airway into Trachea, Via Natural or Artificial Opening (ICD-10-PCS; 2016-03-20)
DX: T40.2X1A Poisoning by other opioids, accidental (unintentional), initial encounter (principal); J69.0 Pneumonitis due to inhalation of food and vomit; J96.01 Acute respiratory failure with hypoxia; F10.231 Alcohol dependence with withdrawal delirium; J90 Pleural effusion, not elsewhere classified; E46 Unspecified protein-calorie malnutrition; D75.89 Other specified diseases of blood and blood-forming organs; S02.2XXA Fracture of nasal bones, initial encounter for closed fracture; T51.0X1A Toxic effect of ethanol, accidental (unintentional), initial encounter; R00.1 Bradycardia, unspecified; E87.6 Hypokalemia; E86.1 Hypovolemia; G47.00 Insomnia, unspecified; I08.1 Rheumatic disorders of both mitral and tricuspid valves; R40.2432 Glasgow coma scale score 3-8, at arrival to emergency department; F11.229 Opioid dependence with intoxication, unspecified; F13.229 Sedative, hypnotic or anxiolytic dependence with intoxication, unspecified; F43.10 Post-traumatic stress disorder, unspecified; F60.9 Personality disorder, unspecified; F17.210 Nicotine dependence, cigarettes, uncomplicated; F32.9 Major depressive disorder, single episode, unspecified; F43.24 Adjustment disorder with disturbance of conduct; Y90.8 Blood alcohol level of 240 mg/100 ml or more; Z68.25 Body mass index [BMI] 25.0-25.9, adult; Z78.1 Physical restraint status; Z86.14 Personal history of Methicillin resistant Staphylococcus aureus infection; Z88.5 Allergy status to narcotic agent; Z88.0 Allergy status to penicillin; Z81.8 Family history of other mental and behavioral disorders; Z91.5 Personal history of self-harm; I10 Essential (primary) hypertension; E87.70 Fluid overload, unspecified
CPT/HCPCS: 31500; 36600; 51702; 70450; 71010; 80048; 80053; 80076; 80307; 80320; 80329; 82140; 82805; 82948; 83605; 83735; 84100; 84132; 84484; 85025; 85027; 85610; 85730; 87040; 87070; 87086; 87205; 87641; 93005; 93306; 94002; 94003; 94640; 94664; 94667; 94668; 95819; 96365; C9113; C9399; G0480; J0131; J0295; J0360; J0456; J0696; J1170; J1630; J1650; J2060; J2250; J2543; J3010; J3370; J3411; J3480; J3486; J7030; J7050; J7120

== ENCOUNTER 2016-04-01 20:14 | Emergency (ER) | payer MEDICAID ==
[~2016-04-01 20:14] MED LIST changes: -CLON.5 PO; +CLON1 PO; +FOLI1TAB4 PO; -HYDR-3534 PO; +K-TA10TA PO; -PENI500T PO; +VITA100T2 PO
== END 2016-04-01 20:18 | disposition left against medical advice (07) ==
LOC: PHED 20:14
DX: R68.89 Other general symptoms and signs (principal)
CPT/HCPCS: 99281

== ENCOUNTER 2016-04-01 20:35 | Emergency (ER) | payer MEDICAID ==
[~2016-04-01] VITALS: Ht 177.8 cm; Wt 83.7 kg
[2016-04-01 21:00] VITALS: BP 110/64; PULSE 77; RESP 18; TEMP 98.6; O2SAT 96
--- NOTE | 2016-04-01 21:33 | PD ---
HPI Chief Complaint: GI Complaint Time Seen by Provider: 21:29 Travel History International Travel<30 days: No Contact w/Intl Traveler<30days: No Traveled to known affect area: No History of Present Illness HPI The patient is a 41-year-old alcoholic with a history of opioid abuse who complains of black tarry stools for one day. He was just released from the hospital for opioid overdose. He denies any syncopal or near syncopal spells. The patient apparently was in the waiting room earlier today but left for the pharmacy and apparently picked up a bottle of vodka which was confiscated when he returned to the emergency department waiting room. The patient is extremely unreliable and his history cannot be trusted. The patient states he was admitted to [facility] and discharged yesterday for "trauma". PFSH Past Medical History Autoimmune Disease: No Anxiety: Yes Depression: Yes Cancer: No Cardiovascular Problems: No Chemotherapy: No Diabetes: No Diminished Hearing: No Endocrine: No Genitourinary: No Immune Disorder: No Musculoskeletal: No Neurologic: Yes Psychiatric: Yes (PTSD) Reproductive: No Respiratory: No Immunizations Current: Yes Radiation Therapy: No Thyroid Disease: No Past Surgical History Other Surgery: Yes ((R) leg) Social History Alcohol Use: Yes ("occasionally" BEER) Tobacco Use: Yes (4PPD) Substance Use: Yes Allergies-Medications (Allergen,Severity, Reaction): Coded Allergies: *MDRO Multi-Drug Resistant Organism (Verified Adverse Reaction, Unknown, ) MRSA arm wound 09/2014. Reported Meds & Prescriptions Reported Meds & Active Scripts Active K-Tab (Potassium Chloride) 10 Meq Tab 10 Meq PO BID Vitamin B-1 (Thiamine HCl) 100 Mg Tab 100 Mg PO DAILY Folate (Folic Acid) 1 Mg Tab 1 Mg PO DAILY Klonopin (Clonazepam) 1 Mg Tab 2 Mg PO Q8HR Review of Systems ROS Limitations: Poor Historian Except as stated in HPI: all other systems reviewed are Neg Physical Exam Exam Limitations: Poor Historian Narrative GENERAL: The patient is alert, oriented 3 in no apparent distress. His vital signs are normal. SKIN: Warm and dry. HEAD: Atraumatic. Normocephalic. EYES: Pupils equal and round. No scleral icterus. No injection or drainage. ENT: No nasal bleeding or discharge. Mucous membranes pink and moist. NECK: Trachea midline. No JVD. CARDIOVASCULAR: Regular rate and rhythm. No murmur appreciated. RESPIRATORY: No accessory muscle use. Clear to auscultation. Breath sounds equal bilaterally. GASTROINTESTINAL: Abdomen soft, non-tender, nondistended. Hepatic and splenic margins not palpable. MUSCULOSKELETAL: No obvious deformities. No clubbing. No cyanosis. No edema. NEUROLOGICAL: Awake and alert. No obvious cranial nerve deficits. Motor grossly within normal limits. Normal speech. PSYCHIATRIC: Appropriate mood and affect; insight and judgment normal. RECTAL EXAM: No masses or tenderness, stool is brown and guaiac-negative. Data Data Last Documented VS Vital Signs Date Time Temp Pulse Resp B/P Pulse Ox O2 Delivery O2 Flow Rate FiO2 04/01/16 21:00 98.6 77 18 110/64 96 Orders Complete Blood Count With Diff (04/01/16 21:33) Basic Metabolic Panel (Bmp) (04/01/16 21:33) Alcohol (Ethanol) (04/01/16 21:33) Labs Laboratory Tests Test 04/01/16 21:54 White Blood Count 8.7 TH/MM3 Red Blood Count 4.16 MIL/MM3 Hemoglobin 13.9 GM/DL Hematocrit 42.1 % Mean Corpuscular Volume 101.2 FL Mean Corpuscular Hemoglobin 33.5 PG Mean Corpuscular Hemoglobin 33.1 % Concent Red Cell Distribution Width 12.8 % Platelet Count 503 TH/MM3 Mean Platelet Volume 7.9 FL Neutrophils (%) (Auto) 54.0 % Lymphocytes (%) (Auto) 27.6 % Monocytes (%) (Auto) 10.8 % Eosinophils (%) (Auto) 5.7 % Basophils (%) (Auto) 1.9 % Neutrophils # (Auto) 4.7 TH/MM3 Lymphocytes # (Auto) 2.4 TH/MM3 Monocytes # (Auto) 0.9 TH/MM3 Eosinophils # (Auto) 0.5 TH/MM3 Basophils # (Auto) 0.2 TH/MM3 CBC Comment DIFF FINAL Differential Comment Sodium Level 147 MEQ/L Potassium Level 3.6 MEQ/L Chloride Level 110 MEQ/L Carbon Dioxide Level 24.7 MEQ/L Anion Gap 12 MEQ/L Blood Urea Nitrogen 8 MG/DL Creatinine 0.85 MG/DL Estimat Glomerular Filtration 99 ML/MIN Rate Random Glucose 93 MG/DL Calcium Level 8.9 MG/DL Ethyl Alcohol Level 166 MG/DL MDM Medical Decision Making Medical Screen Exam Complete: Yes Emergency Medical Condition: Yes Medical Record Reviewed: Yes Interpretation(s) The CBC is normal except for an MCV of 101.2 and a platelet count of 503,000. The elevated MCV is consistent with chronic alcohol abuse. The basic metabolic profile shows a sodium of 147 and CO2 of 24.7 but is otherwise normal. The alcohol level is 166. Differential Diagnosis Malingering to get pain medications/admission, alcohol abuse, other drug abuse, GI bleed, anemia, electrolyte disorder Narrative Course The patient has an elevated MCV which likely represents chronic alcohol abuse. His alcohol level is 166. He is tolerating this level of alcohol well and can walk and safely be discharged at this time. There is no evidence of GI bleeding as demonstrated by the normal hemoglobin of 13.9 or from a negative rectal exam. It is obvious the patient has not lost any significant amount of blood, his hemoglobin is the highest it has been in a month. Diagnosis Primary Impression: Alcohol abuse Additional Instructions: It is necessary to discontinue alcohol. Use [facility] if you need help. Disposition: 01 DISCHARGE HOME Condition: Stable Chico Sanchez MD Apr 01, 2016 21:33
[2016-04-01 21:57] LABS: AUTOMATED NEUTROPHIL # 4.7 TH/MM3 (1.8-7.7); BASOPHIL # 0.2 TH/MM3 (0-0.2); BASOPHIL % 1.9 % (0.0-2.0); EOSINOPHIL # 0.5 TH/MM3 (0-0.4); EOSINOPHIL % 5.7 % (0.0-4.0); HEMATOCRIT 42.1 % (39.0-51.0); HEMO FLAGS DIFF FINAL; LYMPH % 27.6 % (9.0-44.0); LYMPHOCYTE # 2.4 TH/MM3 (1.0-4.8); MEAN CELL VOLUME 101.2 FL (80.0-100.0); MEAN CORPUSCULAR HEMOGLOBIN 33.5 PG (27.0-34.0); MEAN CORPUSCULAR HGB CONC 33.1 % (32.0-36.0); MONO % 10.8 % (0.0-8.0); PLATELET COUNT 503 TH/MM3 (150-450); RED BLOOD COUNT 4.16 MIL/MM3 (4.50-5.90); RED CELL DISTRIBUTION WIDTH 12.8 % (11.6-17.2); WHITE BLOOD COUNT 8.7 TH/MM3 (4.0-11.0)
[2016-04-01 22:04] LABS: POTASSIUM 3.6 MEQ/L (3.5-5.1)
[2016-04-01 22:07] LABS: BICARBONATE 24.7 MEQ/L (21.0-32.0)
[2016-04-01 22:55] VITALS: BP 119/74
== END 2016-04-01 23:05 | disposition home or self-care (01) ==
LOC: PHED 20:35
DX: F10.10 Alcohol abuse, uncomplicated (principal); F11.10 Opioid abuse, uncomplicated; F17.210 Nicotine dependence, cigarettes, uncomplicated; Y90.6 Blood alcohol level of 120-199 mg/100 ml
CPT/HCPCS: 80048; 80320; 85025; 99284

== ENCOUNTER 2016-04-02 02:03 | Emergency (ER) | payer MEDICAID ==
[~2016-04-02] VITALS: Ht 177.8 cm; Wt 80.0 kg
[2016-04-02 02:20] VITALS: BP 106/63; PULSE 80; RESP 16; TEMP 98.4; O2SAT 96
[2016-04-02 02:53] LABS: AUTOMATED NEUTROPHIL # 4.7 TH/MM3 (1.8-7.7); BASOPHIL # 0.3 TH/MM3 (0-0.2); BASOPHIL % 3.3 % (0.0-2.0); EOSINOPHIL # 0.5 TH/MM3 (0-0.4); EOSINOPHIL % 5.2 % (0.0-4.0); HEMATOCRIT 40.8 % (39.0-51.0); HEMO FLAGS DIFF FINAL; LYMPHOCYTE # 3.3 TH/MM3 (1.0-4.8); MEAN CELL VOLUME 101.8 FL (80.0-100.0); MEAN CORPUSCULAR HEMOGLOBIN 35.4 PG (27.0-34.0); MEAN CORPUSCULAR HGB CONC 34.8 % (32.0-36.0); NEUT % 48.5 % (16.0-70.0); PLATELET COUNT 491 TH/MM3 (150-450); RED BLOOD COUNT 4.01 MIL/MM3 (4.50-5.90); RED CELL DISTRIBUTION WIDTH 13.1 % (11.6-17.2); WHITE BLOOD COUNT 9.7 TH/MM3 (4.0-11.0)
[2016-04-02 02:58] LABS: ANION GAP 7 MEQ/L (5-15); AST (GOT) 151 U/L (15-37); BICARBONATE 27.4 MEQ/L (21.0-32.0); BLOOD UREA NITROGEN 9 MG/DL (7-18); CHLORIDE 112 MEQ/L (98-107); GLOMERULAR FILTRATION RATE 86 ML/MIN (>89); POTASSIUM 3.7 MEQ/L (3.5-5.1); SODIUM (NA) 146 MEQ/L (136-145)
[2016-04-02 03:03] LABS: ALKALINE PHOSPHATASE 74 U/L (45-117); ALT (GPT) 231 U/L (12-78); TOTAL BILIRUBIN ADULT 0.2 MG/DL (0.2-1.0)
--- NOTE | 2016-04-02 04:41 | PD ---
HPI Chief Complaint: Psychiatric Symptoms Time Seen by Provider: 04:37 Travel History International Travel<30 days: No Contact w/Intl Traveler<30days: No Traveled to known affect area: No History of Present Illness HPI 41-year-old white male presents to emergency department under [place] act by PD. The patient allegedly had made bizarre suicidal statements to his parents regarding wanting to stab himself in the abdomen to improve that he has internal bleeding. The patient here is intoxicated and possibly under the influence of other medications or drugs. The patient is not making much sense at this time. He denies wanting to hurt himself. No homicidal ideation. He denies any toxic ingestions. PFSH Past Medical History Autoimmune Disease: No Anxiety: Yes Depression: Yes Cancer: No Cardiovascular Problems: No Chemotherapy: No Diabetes: No Diminished Hearing: No Endocrine: No Gastrointestinal Disorders: Yes Genitourinary: No Immune Disorder: No Musculoskeletal: No Neurologic: Yes Psychiatric: Yes (PTSD) Reproductive: No Respiratory: No Immunizations Current: Yes Radiation Therapy: No Thyroid Disease: No Tetanus Vaccination: < 5 Years Influenza Vaccination: No Past Surgical History Other Surgery: Yes ((R) leg) Social History Alcohol Use: Yes (BEER,VODKA) Tobacco Use: Yes (02/11PPD) Substance Use: Yes Allergies-Medications (Allergen,Severity, Reaction): Coded Allergies: *MDRO Multi-Drug Resistant Organism (Verified Adverse Reaction, Unknown, ) MRSA arm wound 09/2014. Reported Meds & Prescriptions Reported Meds & Active Scripts Active K-Tab (Potassium Chloride) 10 Meq Tab 10 Meq PO BID Vitamin B-1 (Thiamine HCl) 100 Mg Tab 100 Mg PO DAILY Folate (Folic Acid) 1 Mg Tab 1 Mg PO DAILY Klonopin (Clonazepam) 1 Mg Tab 2 Mg PO Q8HR Review of Systems ROS Limitations: Intoxication, Psychotic Physical Exam Narrative GENERAL: Well-nourished, well-developed patient. SKIN: Warm and dry. No evidence of any injury. HEAD: Normocephalic and atraumatic. EYES: No scleral icterus. No injection or drainage. ENT: No nasal drainage noted. Mucous membranes pink. Airway patent. NECK: Supple, trachea midline. Moves head freely without obvious discomfort. CARDIOVASCULAR: Regular rate and rhythm without murmurs, gallops, or rubs. RESPIRATORY: Breath sounds equal bilaterally. No accessory muscle use. GASTROINTESTINAL: Abdomen soft, non-tender, nondistended. EXTREMITIES: No cyanosis or edema. BACK: Nontender without obvious deformity. No CVA tenderness. NEURO: Patient is alert and oriented. no sensorimotor deficits. Nonfocal. Normal speech. PSYCH: Poor insight and judgment. Patient does appear to be delusional. Data Data Last Documented VS Vital Signs Date Time Temp Pulse Resp B/P Pulse Ox O2 Delivery O2 Flow Rate FiO2 04/02/16 12:26 73 14 119/58 96 04/02/16 08:13 Room Air 04/02/16 02:20 98.4 Orders Complete Blood Count With Diff (04/02/16 02:26) Comprehensive Metabolic Panel (04/02/16 02:26) Psych Screen (04/02/16 02:26) Alcohol (Ethanol) (04/02/16 02:26) Diet Regular Basic (04/02/16 Breakfast) Labs Laboratory Tests Test 04/02/16 02:25 White Blood Count 9.7 TH/MM3 Red Blood Count 4.01 MIL/MM3 Hemoglobin 14.2 GM/DL Hematocrit 40.8 % Mean Corpuscular Volume 101.8 FL Mean Corpuscular Hemoglobin 35.4 PG Mean Corpuscular Hemoglobin 34.8 % Concent Red Cell Distribution Width 13.1 % Platelet Count 491 TH/MM3 Mean Platelet Volume 8.4 FL Neutrophils (%) (Auto) 48.5 % Lymphocytes (%) (Auto) 34.0 % Monocytes (%) (Auto) 9.0 % Eosinophils (%) (Auto) 5.2 % Basophils (%) (Auto) 3.3 % Neutrophils # (Auto) 4.7 TH/MM3 Lymphocytes # (Auto) 3.3 TH/MM3 Monocytes # (Auto) 0.9 TH/MM3 Eosinophils # (Auto) 0.5 TH/MM3 Basophils # (Auto) 0.3 TH/MM3 CBC Comment DIFF FINAL Differential Comment Sodium Level 146 MEQ/L Potassium Level 3.7 MEQ/L Chloride Level 112 MEQ/L Carbon Dioxide Level 27.4 MEQ/L Anion Gap 7 MEQ/L Blood Urea Nitrogen 9 MG/DL Creatinine 0.96 MG/DL Estimat Glomerular Filtration 86 ML/MIN Rate Random Glucose 80 MG/DL Calcium Level 8.9 MG/DL Total Bilirubin 0.2 MG/DL Aspartate Amino Transf 151 U/L (AST/SGOT) Alanine Aminotransferase 231 U/L (ALT/SGPT) Alkaline Phosphatase 74 U/L Total Protein 7.9 GM/DL Albumin 4.0 GM/DL Ethyl Alcohol Level 171 MG/DL MDM Medical Decision Making Medical Screen Exam Complete: Yes Emergency Medical Condition: Yes Medical Record Reviewed: Yes Interpretation(s) CBC & BMP Diagram 04/02/16 02:25 EtOH 171 Differential Diagnosis MDM: High Differential diagnoses: Schizophrenia, schizoaffective disorder, bipolar, anxiety, depression, adjustment reaction, mood disorder NOS, ODD, depressive disorder NOS, dementia, dementia with agitation, psychosis NOS, substance induced mood disorder, intermittent explosive disorder, Asperger syndrome, infection,electrolyte abnormality, malingering. Narrative Course Mental health screening discussed with the patient. Psychiatric screen ordered. The patient is been medically cleared. This is substance induced psychosis Diagnosis Primary Impression: Substance-induced psychotic disorder with delusions Condition: Stable Real Crawford Apr 02, 2016 04:41
[2016-04-02 08:13] VITALS: BP 105/53; PULSE 69; RESP 14; O2SAT 94
[2016-04-02 12:26] VITALS: BP 119/58; PULSE 73; RESP 14; O2SAT 96
--- NOTE | 2016-04-06 14:18 | PD.CONS ---
Provisional Diagnosis Admission Date [place]. Adjustment disorder with mixed disturbance of emotions and conduct. History of Present Illness Service Psychiatry Consult Requested By Primary Care Physician No Primary Care Physician HPI Patient was seen in the emergency department on 04/02/2016 as he was under a [place] act and had made bizarre statements. At that time he was evaluated by this physician, he was no longer intoxicated. He denied suicidal, homicidal or psychotic thinking. His cognition was intact. Review of Systems Except as stated in HPI: all other systems reviewed are Neg Past Family Social History Coded Allergies: *MDRO Multi-Drug Resistant Organism (Verified Adverse Reaction, Unknown, ) MRSA arm wound 09/2014. Active Scripts Potassium Chloride ER (K-Tab)10 Meq Tab10 Meq PO BID #10 TAB Ref 0 Prov:ChrisDavie london DO 03/30/16 Thiamine (Vitamin B-1)100 Mg [id number] Mg PO DAILY #30 TAB Prov:Davie Sanchez DO 03/30/16 Folic Acid (Folate)1 Mg Tab1 Mg PO DAILY #30 TAB Prov:Davie Sanchez DO 03/30/16 Clonazepam (Klonopin)1 Mg Tab2 Mg PO Q8HR #30 TAB Prov:ChrisDavie london DO 03/30/16 Discontinued Reported Medications Clonazepam (Klonopin)0.5 Mg Tab0.5 Mg PO DIRECTED #60 TAB Ref 0 01/05/16 Discontinued Scripts Hydrocodone-Acetaminophen (Lortab)7.5-325 Mg Tab1 Tab PO Q4H PRN (PAIN) #30 TAB Ref 0 Prov:Lyndon Laguna MD 01/05/16 Penicillin V Potassium 500 Mg [id number] Mg PO Q6H 28 Days Ref 0 Prov:Lyndon Laguna MD 01/05/16 No psychiatric medicines. Family History Significant for a mood disorder. Social History Currently lives with his parents. Patient's Strengths (min. 2) Verbal and resilient Physical Exam Vital Signs Vital Signs Date Time Temp Pulse Resp B/P Pulse Ox O2 Delivery O2 Flow Rate FiO2 04/02/16 12:26 73 14 119/58 96 04/02/16 08:13 Room Air Mental Status Examination Speech: Unremarkable Orientation: x3 Memory: Unremarkable Thought Process: Organized, Goal Directed Thought Content: Unremarkable Hallucination Type: None Attention and Concentration: Good Suicidal Ideation: No Previous Suicide Attempts: No Homicidal Ideation: No Previous Homicide Attempts: No Insight: Fair Judgement: WNL Affect: Good Mood: Appropriate Motor Activity: Normal gait Assessment & Plan Problem List: (1) Adjustment disorder with mixed disturbance of emotions and conduct ICD Code: F43.25 Assessment & Plan Estimated LOS: days this physician lifted the patient's [place] act as he no longer meets criteria and does not require inpatient treatment. He was encouraged to stop drinking and to seek outpatient treatment. Nura Aguilar MD Apr 06, 2016 14:18
== END 2016-04-02 14:20 | disposition home or self-care (01) ==
LOC: NEPA 02:03
DX: F10.950 Alcohol use, unspecified with alcohol-induced psychotic disorder with delusions (principal); F43.25 Adjustment disorder with mixed disturbance of emotions and conduct; F43.10 Post-traumatic stress disorder, unspecified; Y90.6 Blood alcohol level of 120-199 mg/100 ml; F17.210 Nicotine dependence, cigarettes, uncomplicated
CPT/HCPCS: 80053; 80320; 85025; 99284

== ENCOUNTER 2016-04-16 22:36 | Emergency (ER) | payer MEDICAID, OTHER ==
[~2016-04-16] VITALS: Ht 177.8 cm; Wt 80.0 kg
[2016-04-16 23:09] VITALS: BP 114/73; PULSE 90; RESP 18; TEMP 99; O2SAT 97
--- NOTE | 2016-04-16 23:36 | PD ---
HPI Chief Complaint: Psychiatric Symptoms Time Seen by Provider: 23:34 Travel History International Travel<30 days: No Contact w/Intl Traveler<30days: No History of Present Illness HPI Patient comes in under a [place] act for alleged suicide attempt. Patient states that he was trying to scare his family and placed a plastic bag around his head but had a hole in the back as he is not actually trying to harm himself. Patient denies any homicidal or suicidal ideations. Patient denies any medical concerns. Denies chest pain, shortness breath, nausea, vomiting, abdominal pain , or fevers. PFSH Past Medical History Autoimmune Disease: No Anxiety: Yes Depression: Yes Cancer: No Cardiovascular Problems: No Chemotherapy: No Diabetes: No Diminished Hearing: No Endocrine: No Gastrointestinal Disorders: Yes Genitourinary: No Immune Disorder: No Musculoskeletal: No Neurologic: Yes Psychiatric: Yes (PTSD) Reproductive: No Respiratory: No Immunizations Current: Yes Radiation Therapy: No Thyroid Disease: No Past Surgical History Other Surgery: Yes ((R) leg) Social History Alcohol Use: Yes (BEER,VODKA) Tobacco Use: Yes (4PPD) Substance Use: Yes Allergies-Medications (Allergen,Severity, Reaction): Coded Allergies: *MDRO Multi-Drug Resistant Organism (Verified Adverse Reaction, Unknown, ) MRSA arm wound 09/2014. Reported Meds & Prescriptions Reported Meds & Active Scripts Active K-Tab (Potassium Chloride) 10 Meq Tab 10 Meq PO BID Vitamin B-1 (Thiamine HCl) 100 Mg Tab 100 Mg PO DAILY Folate (Folic Acid) 1 Mg Tab 1 Mg PO DAILY Klonopin (Clonazepam) 1 Mg Tab 2 Mg PO Q8HR Reported Lexapro (Escitalopram Oxalate) 20 Mg Tab 20 Mg PO DAILY Review of Systems ROS Limitations: Intoxication Except as stated in HPI: all other systems reviewed are Neg Physical Exam Exam Limitations: Intoxication Narrative GENERAL: Well-developed, well nourished, in no acute distress, and non-ill appearing. SKIN: Warm and dry. HEAD: Atraumatic. Normocephalic. EYES: Pupils equal and round. EOMI. No scleral icterus. No injection or drainage. ENT: No nasal bleeding or discharge. Mucous membranes pink and moist. NECK: Trachea midline. Supple. No nuclear rigidity. CARDIOVASCULAR: Regular rate and rhythm. No murmur appreciated. RESPIRATORY: No accessory muscle use. No respiratory distress. Clear to auscultation. Breath sounds equal bilaterally. MUSCULOSKELETAL: No obvious deformities. No clubbing. No cyanosis. No edema. Full range of motion. NEUROLOGICAL: Awake and alert. No obvious cranial nerve deficits. Motor grossly within normal limits. Slurred speech. PSYCHIATRIC: Insight and judgment abnormal. Data Data Last Documented VS Vital Signs Date Time Temp Pulse Resp B/P Pulse Ox O2 Delivery O2 Flow Rate FiO2 04/16/16 23:40 98.1 83 14 89/50 97 04/16/16 23:09 Room Air Orders Drug Screen, Random Urine (04/16/16 23:11) Alcohol (Ethanol) (04/16/16 23:32) Complete Blood Count With Diff (04/16/16 23:32) Comprehensive Metabolic Panel (04/16/16 23:32) Psych Screen (04/16/16 23:32) Salicylates (Aspirin) (04/16/16 23:32) Tylenol (Acetaminophen) (04/16/16 23:32) Labs Laboratory Tests Test 04/16/16 04/16/16 23:10 23:51 Urine Opiates Screen NEG Urine Barbiturates Screen NEG Urine Amphetamines Screen NEG Urine Benzodiazepines Screen POS Urine Cocaine Screen NEG Urine Cannabinoids Screen NEG White Blood Count 8.0 TH/MM3 Red Blood Count 4.58 MIL/MM3 Hemoglobin 15.5 GM/DL Hematocrit 45.8 % Mean Corpuscular Volume 100.0 FL Mean Corpuscular Hemoglobin 33.8 PG Mean Corpuscular Hemoglobin 33.8 % Concent Red Cell Distribution Width 13.3 % Platelet Count 198 TH/MM3 Mean Platelet Volume 8.9 FL Neutrophils (%) (Auto) 44.4 % Lymphocytes (%) (Auto) 39.0 % Monocytes (%) (Auto) 10.3 % Eosinophils (%) (Auto) 5.2 % Basophils (%) (Auto) 1.1 % Neutrophils # (Auto) 3.5 TH/MM3 Lymphocytes # (Auto) 3.1 TH/MM3 Monocytes # (Auto) 0.8 TH/MM3 Eosinophils # (Auto) 0.4 TH/MM3 Basophils # (Auto) 0.1 TH/MM3 CBC Comment DIFF FINAL Differential Comment Sodium Level 144 MEQ/L Potassium Level 3.8 MEQ/L Chloride Level 107 MEQ/L Carbon Dioxide Level 26.3 MEQ/L Anion Gap 11 MEQ/L Blood Urea Nitrogen 9 MG/DL Creatinine 0.84 MG/DL Estimat Glomerular Filtration 100 ML/MIN Rate Random Glucose 92 MG/DL Calcium Level 8.4 MG/DL Total Bilirubin 0.3 MG/DL Aspartate Amino Transf 89 U/L (AST/SGOT) Alanine Aminotransferase 94 U/L (ALT/SGPT) Alkaline Phosphatase 95 U/L Total Protein 7.1 GM/DL Albumin 3.7 GM/DL Salicylates Level 1.8 MG/DL Acetaminophen Level LESS THAN 2.0 MCG/ML Ethyl Alcohol Level 178 MG/DL [facility] Medical Decision Making Medical Screen Exam Complete: Yes Emergency Medical Condition: Yes Differential Diagnosis Homicidal, suicidal, alcohol intoxication, substance-induced mood disorder, other Narrative Course Patient was seen and examined. Labs were obtained and reviewed. Patient medically cleared for further treatment and evaluation by psych. Final disposition per psych. Diagnosis Primary Impression: Alcohol abuse Condition: Stable Serge Davila Apr 16, 2016 23:36
[2016-04-16] MEDS ORDERED: LEXA20TA PO (23:39)
[2016-04-16 23:40] VITALS: BP 89/50; PULSE 83; RESP 14; TEMP 98.1; O2SAT 97
[2016-04-17 00:07] LABS: AUTOMATED NEUTROPHIL # 3.5 TH/MM3 (1.8-7.7); BASOPHIL # 0.1 TH/MM3 (0-0.2); BASOPHIL % 1.1 % (0.0-2.0); EOSINOPHIL # 0.4 TH/MM3 (0-0.4); EOSINOPHIL % 5.2 % (0.0-4.0); HEMATOCRIT 45.8 % (39.0-51.0); HEMO FLAGS DIFF FINAL; LYMPHOCYTE # 3.1 TH/MM3 (1.0-4.8); MEAN CORPUSCULAR HEMOGLOBIN 33.8 PG (27.0-34.0); MEAN CORPUSCULAR HGB CONC 33.8 % (32.0-36.0); MONO % 10.3 % (0.0-8.0); NEUT % 44.4 % (16.0-70.0); PLATELET COUNT 198 TH/MM3 (150-450); RED BLOOD COUNT 4.58 MIL/MM3 (4.50-5.90); RED CELL DISTRIBUTION WIDTH 13.3 % (11.6-17.2)
[2016-04-17 00:18] LABS: AMPHETAMINE, URINE NEG (NEG); BARBITURATES, URINE NEG (NEG); COCAINE, URINE NEG (NEG)
[2016-04-17 00:31] LABS: ACETAMINOPHEN LESS THAN 2.0 MCG/ML (10.0-30.0); ALT (GPT) 94 U/L (12-78); ANION GAP 11 MEQ/L (5-15); AST (GOT) 89 U/L (15-37); BICARBONATE 26.3 MEQ/L (21.0-32.0); BLOOD UREA NITROGEN 9 MG/DL (7-18); CHLORIDE 107 MEQ/L (98-107); GLOMERULAR FILTRATION RATE 100 ML/MIN (>89); POTASSIUM 3.8 MEQ/L (3.5-5.1); SODIUM (NA) 144 MEQ/L (136-145)
[2016-04-17 00:33] LABS: ALKALINE PHOSPHATASE 95 U/L (45-117); TOTAL BILIRUBIN ADULT 0.3 MG/DL (0.2-1.0)
[2016-04-17] MEDS ORDERED: FLUMAZENIL 0.5 MG/5 ML VIAL IV PUSH PRN (01:00)
[2016-04-17] MEDS ORDERED: LORazepam 2 MG TAB PO PRN (01:00)
[2016-04-17] MEDS ORDERED: LORazepam 2 MG/ML VIAL IV PUSH PRN ×4 (01:00)
[2016-04-17] MEDS ORDERED: LORazepam 1 MG TAB PO PRN (01:00)
[2016-04-17 01:20] VITALS: BP 107/59; PULSE 81; RESP 18; O2SAT 96
== END 2016-04-17 04:03 ==
LOC: NEDAMB 22:36 → NEPJ 04-17 04:03
DX: F10.10 Alcohol abuse, uncomplicated (principal); F17.210 Nicotine dependence, cigarettes, uncomplicated
CPT/HCPCS: 80053; 80307; 85025; 99284

== ENCOUNTER 2016-05-27 12:39 | Inpatient (IN) | payer MEDICAID, OTHER ==
[~2016-05-27] VITALS: Ht 177.8 cm; Wt 85.1 kg
[2016-05-27] VITALS (9 sets, daily range): BP systolic 96–136; BP diastolic 58–82; PULSE 82–127; RESP 10–32; TEMP 97.7–98.3; O2SAT 95–99
[~2016-05-27 12:39] MED LIST changes: +LEXA20TA PO
[2016-05-27] MEDS ORDERED: ONDANSETRON HCL 4 MG/2 ML VIAL IV PUSH ONE (13:15)
[2016-05-27] MEDS ORDERED: SODIUM CHLOR 0.9% 1000 ML INJ 1,000 ML IV ONE ×4 (13:15→18:00)
[2016-05-27] MEDS ORDERED: LORazepam 2 MG/ML VIAL IV PUSH ONE (13:30)
--- NOTE | 2016-05-27 13:35 | PD ---
HPI . Cramping and vomiting Chief Complaint: GI Complaint Time Seen by Provider: 13:07 Travel History International Travel<30 days: No Contact w/Intl Traveler<30days: No Traveled to known affect area: No History of Present Illness HPI Patient presents with cramping and vomiting. He states that it started yesterday. The cramping came first followed by the vomiting. 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 He states that he probably drank 40 bottles of water yesterday. Despite that, he has not made any urine since yesterday morning. He reports to numerous to count episodes of emesis. The cramps are intermittent but quite severe when they come. PFSH Past Medical History Autoimmune Disease: No Anxiety: Yes Depression: Yes (PTSD) Cancer: No Cardiovascular Problems: No Chemotherapy: No Diabetes: No Diminished Hearing: No Endocrine: No Gastrointestinal Disorders: Yes Genitourinary: No Immune Disorder: No Musculoskeletal: No Neurologic: Yes Psychiatric: Yes (PTSD) Reproductive: No Respiratory: No Immunizations Current: Yes Radiation Therapy: No Thyroid Disease: No Tetanus Vaccination: < 5 Years Influenza Vaccination: No Past Surgical History Other Surgery: Yes ((R) leg) Social History Alcohol Use: Yes (BEER,VODKA DAILY) Tobacco Use: Yes (1/2 PPD) Substance Use: Yes (PILLS ) Allergies-Medications (Allergen,Severity, Reaction): Coded Allergies: *MDRO Multi-Drug Resistant Organism (Verified Adverse Reaction, Unknown, ) MRSA arm wound 09/2014. Reported Meds & Prescriptions Reported Meds & Active Scripts Active Klonopin (Clonazepam) 1 Mg Tab 2 Mg PO Q8HR Review of Systems Except as stated in HPI: all other systems reviewed are Neg Gastrointestinal: Positive: Nausea, Vomiting Musculoskeletal: Positive: Myalgias, Cramping Physical Exam Narrative GENERAL: Healthy-appearing man who does not appear to be in any acute distress at this time. SKIN: Warm and dry. HEAD: Atraumatic. Normocephalic. EYES: Pupils equal and round. Extraocular movements are intact. ENT: No nasal bleeding or discharge. Mucous membranes pink and moist. NECK: Trachea midline. Neck is supple. CARDIOVASCULAR: Sinus tachycardia. Normal heart sounds. RESPIRATORY: No accessory muscle use. Lungs are clear with full air movement throughout. GASTROINTESTINAL: Abdomen soft, non-tender, nondistended. MUSCULOSKELETAL: No obvious deformities. No edema. NEUROLOGICAL: Awake and alert. No obvious cranial nerve deficits. Motor grossly within normal limits. Normal speech. PSYCHIATRIC: Appropriate mood and affect; insight and judgment normal. Data Data Last Documented VS Vital Signs Date Time Temp Pulse Resp B/P Pulse Ox O2 Delivery O2 Flow Rate FiO2 05/27/16 12:45 97.7 127 17 96/76 97 Orders Sodium Chlor 0.9% 1000 Ml Inj (Ns 1000 M (05/27/16 13:15) Sodium Chlor 0.9% 1000 Ml Inj (Ns 1000 M (05/27/16 13:15) Sodium Chlor 0.9% 1000 Ml Inj (Ns 1000 M (05/27/16 13:15) Ondansetron Inj (Zofran Inj) (05/27/16 13:15) Lorazepam Inj (Ativan Inj) (05/27/16 13:30) Basic Metabolic Panel (Bmp) (05/27/16 13:30) Creatine Kinase (Cpk) (05/27/16 14:58) Urinalysis - C+S If Indicated (05/27/16 14:58) Us Kidney/Renal/Bladder (05/27/16 ) Urinary Catheter Management LEIDA.Q8H (05/27/16 14:59) Complete Blood Count With Diff (05/27/16 15:02) Neuro Checks Q4H (05/27/16 15:02) Alcohol Withdrawal Asmt-Ciwa Q4HX18 (05/27/16 15:02) ^ Seizure Precautions (05/27/16 15:02) Jet Handler / Telemetry LEIDA.Q8H (05/27/16 15:02) Folic Acid (Folate) (05/28/16 09:00) Thiamine (Vit B1) (Vitamin B1) (05/28/16 09:00) Multivitamins-Minerals Therap (Theragran (05/28/16 09:00) Flumazenil Inj (Romazicon Inj) (05/27/16 15:15) Lorazepam (Ativan) (05/27/16 15:15) Lorazepam Inj (Ativan Inj) (05/27/16 15:15) Lorazepam (Ativan) (05/27/16 15:15) Lorazepam Inj (Ativan Inj) (05/27/16 15:15) Lorazepam Inj (Ativan Inj) (05/27/16 15:15) Lorazepam Inj (Ativan Inj) (05/27/16 15:15) Haloperidol Inj (Haldol Inj) (05/27/16 15:15) ^ Other Nursing Orders (05/27/16 15:02) Admit To Inpatient (05/27/16 ) Vital Signs (Adult) Q4H (05/27/16 15:02) Activity Oob With Assistance (05/27/16 15:02) Intake + Output LEIDA.QSHIFT (05/27/16 15:02) Diet Regular Basic (05/27/16 Dinner) Sodium Chlor 0.9% 1000 Ml Inj (Ns 1000 M (05/27/16 15:02) Sodium Chloride 0.9% Flush (Ns Flush) (05/27/16 15:15) Sodium Chloride 0.9% Flush (Ns Flush) (05/27/16 21:00) Ondansetron Inj (Zofran Inj) (05/27/16 15:15) Bisacodyl Supp (Dulcolax Supp) (05/27/16 15:15) Basic Metabolic Panel (Bmp) (05/28/16 06:00) Resp Oxygen Jason C Titrat 1-4 L (05/27/16 ) Case Management Consult (05/27/16 15:02) Acetaminophen (Tylenol) (05/27/16 15:15) Naloxone Inj (Narcan Inj) (05/27/16 15:15) Inpatient Certification (05/27/16 ) Iv Access Insert/Monitor (05/27/16 15:01) Ecg Monitoring (05/27/16 15:01) Oximetry (05/27/16 15:01) Sodium Chloride 0.9% Flush (Ns Flush) (05/27/16 15:15) Electrocardiogram (05/27/16 15:01) Urinary Catheter Insert/Apply (05/27/16 15:01) Labs Laboratory Tests Test 05/27/16 13:45 Sodium Level 134 MEQ/L Potassium Level 3.2 MEQ/L Chloride Level 92 MEQ/L Carbon Dioxide Level 24.9 MEQ/L Anion Gap 17 MEQ/L Blood Urea Nitrogen 30 MG/DL Creatinine 4.20 MG/DL Estimat Glomerular Filtration 16 ML/MIN Rate Random Glucose 121 MG/DL Calcium Level 11.4 MG/DL MDM Medical Decision Making Medical Screen Exam Complete: Yes Emergency Medical Condition: Yes Differential Diagnosis Differential diagnosis includes but is not limited to viral gastritis, food poisoning, pancreatitis, pneumonia, hepatitis, acute coronary syndrome, Narrative Course Patient presents with muscle cramps and vomiting after working outside in the heat yesterday. BMP Diagram 05/27/16 13:45 His renal function findings were a total surprise. I have subsequently consult to Dr. Barker who will admit the patient for further evaluation. Diagnosis Primary Impression: Persistent vomiting Additional Impressions: Cramping of hands Renal failure Admitting Information Admitting Physician Requests: Admit Condition: Stable Mirna Paul MD May 27, 2016 13:35
[2016-05-27 14:09] LABS: POTASSIUM 3.2 MEQ/L (3.5-5.1)
[2016-05-27 14:12] LABS: BICARBONATE 24.9 MEQ/L (21.0-32.0)
[2016-05-27] MEDS ORDERED: SODIUM CHLORIDE 0.9% FLUSH 10 ML FLUSH IV FLUSH PRN ×2 (15:15)
[2016-05-27] MEDS ORDERED: LORazepam 2 MG/ML VIAL IV PUSH PRN ×4 (15:15)
[2016-05-27] MEDS ORDERED: ONDANSETRON HCL 4 MG/2 ML VIAL IVP PRN (15:15)
[2016-05-27] MEDS ORDERED: LORazepam 2 MG TAB PO PRN (15:15)
[2016-05-27] MEDS ORDERED: FLUMAZENIL 0.5 MG/5 ML VIAL IV PUSH PRN (15:15)
[2016-05-27] MEDS ORDERED: LORazepam 1 MG TAB PO PRN (15:15)
[2016-05-27] MEDS ORDERED: ACETAMINOPHEN 325 MG TAB PO PRN (15:15)
[2016-05-27] MEDS ORDERED: BISACODYL 10 MG SUPP RECTAL PRN (15:15)
[2016-05-27] MEDS ORDERED: NALOXONE HCL 0.4 MG/ML AMP IV PRN (15:15)
[2016-05-27] MEDS ORDERED: HALOPERIDOL LACTATE 5 MG/ML AMP IM PRN (15:15)
[2016-05-27 15:37] LABS: CKMB 5.3 NG/ML (0.5-3.6)
--- NOTE | 2016-05-27 16:50 | RADHPO ---
EXAM DATE/TIME: 05/27/2016 15:59 [facility] COMPARISON: No previous studies available for comparison. INDICATIONS : Obstruction. Vomiting. Right back pain. MEDICAL HISTORY : Hepatitis C. Alcohol and substance use. MRSA, arm wound, 2015. SURGICAL HISTORY : Right leg surgery. ENCOUNTER: Initial ACUITY: 1 day PAIN SCORE: 10/10 LOCATION: Bilateral flank MEASUREMENTS: RIGHT KIDNEY: 10.5 x 6.0 x 6.7 cm LEFT KIDNEY: 10.3 x 5.6 x 6.8 cm FINDINGS: RIGHT KIDNEY: Renal cortex is normal in thickness and echotexture. No hydronephrosis, stone, or mass. LEFT KIDNEY: Renal cortex is normal in thickness and echotexture. No hydronephrosis, stone, or mass. BLADDER: Within normal limits given the degree of distension. CONCLUSION: Negative renal sonogram. Bryan Matamoros MD on May 27, 2016 at 16:48 Board Certified Radiologist. This report was verified electronically.
[2016-05-27] MEDS ORDERED: POTASSIUM CHLORIDE 10 MEQ CAP PO ONE (17:15)
[2016-05-27 17:16] LABS: AUTOMATED NEUTROPHIL # 5.6 TH/MM3 (1.8-7.7); BASOPHIL # 0.1 TH/MM3 (0-0.2); BASOPHIL % 0.6 % (0.0-2.0); EOSINOPHIL # 0.1 TH/MM3 (0-0.4); EOSINOPHIL % 0.8 % (0.0-4.0); HEMATOCRIT 55.3 % (39.0-51.0); HEMO FLAGS DIFF FINAL; LYMPH % 24.6 % (9.0-44.0); LYMPHOCYTE # 2.1 TH/MM3 (1.0-4.8); MEAN CELL VOLUME 98.2 FL (80.0-100.0); MEAN CORPUSCULAR HEMOGLOBIN 32.4 PG (27.0-34.0); MONO % 9.8 % (0.0-8.0); NEUT % 64.2 % (16.0-70.0); PLATELET COUNT 165 TH/MM3 (150-450); RED BLOOD COUNT 5.63 MIL/MM3 (4.50-5.90); RED CELL DISTRIBUTION WIDTH 14.1 % (11.6-17.2); WHITE BLOOD COUNT 8.6 TH/MM3 (4.0-11.0)
[2016-05-27 17:22] LABS: BLOOD, URINE SMALL (NEG); GLUCOSE,URINE NEG (NEG); KETONE, URINE 15 mg/dL (NEG); NITRITE,URINE NEG (NEG); PH, URINE 5.5 (5.0-8.5)
--- NOTE | 2016-05-27 17:26 | HHI.HP ---
[facility] No Primary Care Physician Admission Diagnosis ARF Diagnoses: (1) suspected heat stroke Diagnosis: Principal (2) Acute renal failure Diagnosis: Principal (3) Electrolyte abnormality Diagnosis: Principal Chief Complaint: dizzy, decreased urination Travel History International Travel<30 Days: No Contact w/Intl Traveler <30 Da: No Traveled to Known Affected Are: No History of Present Illness 41-year-old male with only medical history of anxiety and PTSD presents with complaint of dizziness, vomiting, decreased urine output. Patient states he worked in direct sunlight without shade and he hadn't worked that long of a day in a while. He states he drank about 40 bottles of water. He states that he felt like he was dizzy, presyncopal like he was going to collapse but denies any syncope. He states he couldn't keep any food down. He states his back and joints were locked up. He states he took one Aleve yesterday. Admits to exhaustion. He states he hasn't urinated since yesterday until now and only produced ~100 cc. He denies any fevers or chills. Denies any abdominal pain. Denies any history of kidney stones. Review of Systems Except as stated in HPI: all other systems reviewed are Neg Past Family Social History Past Medical History Anxiety PTSD Past Surgical History None Reported Medications Klonopin (Clonazepam) 1 Mg Tab 2 Mg PO Q8HR Allergies: Coded Allergies: *MDRO Multi-Drug Resistant Organism (Verified Adverse Reaction, Unknown, ) MRSA arm wound 09/2014. Family History Denies any family history of renal failure. Social History Smokes one half pack per day of cigarettes. Drinks 1-2 beers every night after work. Denies using illicit drugs. Physical Exam Vital Signs Vital Signs Date Time Temp Pulse Resp B/P Pulse Ox O2 Delivery O2 Flow Rate FiO2 05/27/16 15:30 98 16 126/81 95 Room Air 05/27/16 13:34 116 18 112/73 96 Room Air 05/27/16 12:45 97.7 127 17 96/76 97 Physical Exam GENERAL: This is a well-nourished, well-developed patient, in no apparent distress. SKIN: No rashes, ecchymoses or lesions. Tattoos. HEAD: Atraumatic. Normocephalic. EYES: No scleral icterus. No injection or drainage. ENT: Tongue dry. NECK: Trachea midline. CARDIOVASCULAR: Tachycardic rate with regular rhythm without murmurs, gallops, or rubs. RESPIRATORY: Clear to auscultation. Breath sounds equal bilaterally. No wheezes , rales, or rhonchi. GASTROINTESTINAL: Abdomen soft, non-tender, nondistended. MUSCULOSKELETAL: No lower extremity edema bilaterally. NEUROLOGICAL: Awake and alert. Motor grossly within normal limits. Normal speech. PSYCHIATRIC: Normal mood and affect. Laboratory Laboratory Tests Test 05/27/16 13:45 White Blood Count 8.6 Red Blood Count 5.63 Hemoglobin 18.2 Hematocrit 55.3 Mean Corpuscular Volume 98.2 Mean Corpuscular Hemoglobin 32.4 Mean Corpuscular Hemoglobin 33.0 Concent Red Cell Distribution Width 14.1 Platelet Count 165 Mean Platelet Volume 10.3 Neutrophils (%) (Auto) 64.2 Lymphocytes (%) (Auto) 24.6 Monocytes (%) (Auto) 9.8 Eosinophils (%) (Auto) 0.8 Basophils (%) (Auto) 0.6 Neutrophils # (Auto) 5.6 Lymphocytes # (Auto) 2.1 Monocytes # (Auto) 0.8 Eosinophils # (Auto) 0.1 Basophils # (Auto) 0.1 CBC Comment DIFF FINAL Differential Comment Sodium Level 134 Potassium Level 3.2 Chloride Level 92 Carbon Dioxide Level 24.9 Anion Gap 17 Blood Urea Nitrogen 30 Creatinine 4.20 Estimat Glomerular Filtration 16 Rate Random Glucose 121 Calcium Level 11.4 Total Creatine Kinase 389 Creatine Kinase MB 5.3 Creatine Kinase MB % 1.4 Result Diagram: 05/27/16 1345 05/27/16 1345 Imaging Last Impressions Renal Ultrasound 05/27/16 0000 Signed Impressions: Service Date/Time: Friday, May 27, 2016 15:59 - CONCLUSION: Negative renal sonogram. 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 Hemoglobin is concentrated at 18.2. ARF. Dry tongue. CK only minimally elevated at 389 though. Received 3 boluses of IVF. -Order additional bolus of IVNS. -Continue IVF at 100 mL/hr. GUERLINE: BUN/Cr 30/4.2 previously normal renal function on 04/16/16. UA personally reviewed with brown urine, 100 protein, 15 ketones, small occult blood, moderate bilirubin, 9-14 white blood cells, and 10-14 hyaline casts. Ratio indicate intrarenal, likely ATN. UDS positive for benzos but patient is on Klonopin but it is also positive for methamphetamines and patient is on no other medications. Renal US negative -Patient producing little urine output, but refuses Jung. It was explained to patient that if he does not continue to produce urine we will need to put a Jung in, RN advised to bladder scan if necessary. -Monitor intake and output -Continue IV hydration -Repeat am BMP -Nephrology consulted Electrolyte abnormalities: Mild hyponatremia and hypochloremia. Mild hypokalemia of 3.2. -Replete K+ and monitor BMP. Check Mg level in the am. Alcohol abuse: Patient has been to the ED a couple of times this year for alcohol abuse. -[place] protocol -EtOh withdrawal and seizure precautions -Thiamine and Folate Anxiety: Continue Klonopin only as needed at lower dose of 1 mg q 8h prn. DVT prevention: SCDs Written by Anne Purdy PA-C acting as scribe for on Dr. Barker at 1710. This note was transcribed by scribe Anne Purdy PA-C. I, Dr. Mauro Barker personally performed the history, physical exam, and medical decision making; and confirmed the accuracy of the information in the transcribed note. Authenticated by Dr. Mauro Barker on 05/27/16 at 18:08. Physician Certification 2 Midnight Certification Type: Admission for Inpatient Services Order for Inpatient Services The services are ordered in accordance with Medicare regulations or non- Medicare payer requirements, as applicable. In the case of services not specified as inpatient-only, they are appropriately provided as inpatient services in accordance with the 2-midnight benchmark. Estimated LOS (days): 2 days is the estimated time the patient will need to remain in the hospital, assuming treatment plan goals are met and no additional complications. Post-Hospital Plan: Anne Conroy May 27, 2016 17:26 Mauro Barker MD May 28, 2016 06:08
[2016-05-27 17:33] LABS: URINE COLOR BROWN (YELLW/STRAW)
[2016-05-27 17:36] LABS: BACTERIA, URINE FEW /hpf; COMMENT (UR) CULTURE INDICATED; CULTURE IF INDICATED CULTURE INDICATED; MUCUS URINE FEW /lpf (OCC); RBC, URINE 0-3 /hpf (0-3); SQUAMOUS EPITHELIAL CELL URINE 0-5 /hpf (0-5)
[2016-05-27 17:38] LABS: BARBITURATES, URINE NEG (NEG)
[2016-05-27 17:39] LABS: AMPHETAMINE, URINE POS (NEG); COCAINE, URINE NEG (NEG)
[2016-05-27] MEDS: SODIUM CHLOR 0.9% 1000 ML INJ 1,000 ML IV SCH (18:43)
[2016-05-27] MEDS: clonazePAM 1 MG TAB PO PRN (20:28)
[2016-05-27] MEDS: SODIUM CHLORIDE 0.9% FLUSH 10 ML FLUSH IV FLUSH SCH (21:00)
[2016-05-28] VITALS (28 sets, daily range): BP systolic 81–122; BP diastolic 44–67; PULSE 55–85; RESP 6–21; TEMP 97.9–98.8; O2SAT 95–99
[2016-05-28] MEDS: SODIUM CHLOR 0.9% 1000 ML INJ 1,000 ML IV SCH ×3 (01:08→20:08)
[2016-05-28] MEDS ORDERED: SODIUM CHLORID 0.9% 500 ML INJ 500 ML IV ONE (03:30)
[2016-05-28 04:50] LABS: BICARBONATE 24.4 MEQ/L (21.0-32.0); MAGNESIUM 2.1 MG/DL (1.5-2.5)
[2016-05-28] MEDS ORDERED: POTASSIUM CHLOR 20 MEQ PREMIX 100 ML IV SCH (05:00)
[2016-05-28] MEDS ORDERED: SODIUM CHLOR 0.9% 1000 ML INJ 1,000 ML IV ONE ×2 (05:00→18:15)
[2016-05-28] MEDS ORDERED: POTASSIUM CHLORIDE 25 MEQ EFFERVESCENT TAB PO ONE (05:00)
[2016-05-28] MEDS ORDERED: SODIUM CHLOR 0.9% 250 ML INJ 250 ML IV PRN (06:45)
[2016-05-28] MEDS ORDERED: NALOXONE HCL 0.4 MG/ML AMP IV PRN (08:45)
[2016-05-28] MEDS: SODIUM CHLORIDE 0.9% FLUSH 10 ML FLUSH IV FLUSH SCH ×2 (09:00→20:08)
[2016-05-28] MEDS: FOLIC ACID 1 MG TAB PO SCH (09:18)
[2016-05-28] MEDS: THIAMINE HCL 100 MG TAB PO SCH (09:18)
[2016-05-28] MEDS: MULTIVITAMINS/MINERALS THERAPEUTIC TAB PO SCH (09:18)
[2016-05-28] MEDS: traMADol HCL 50 MG TAB PO PRN ×2 (09:19→18:24)
[2016-05-28] MEDS: clonazePAM 1 MG TAB PO PRN ×2 (09:27→18:23)
--- NOTE | 2016-05-28 09:44 | HHI.PR ---
Subjective Remarks Follow-up acute kidney injury and hypokalemia. He is feeling better tolerating by mouth. Complained of crampy pain involving the hands. Discussed with RN, he received a total of 20 mEq IV potassium and 50 mg by mouth. Put out 200 cc of dark urine this morning. Objective Vitals Vital Signs Date Time Temp Pulse Resp B/P Pulse Ox O2 Delivery O2 Flow Rate FiO2 05/28/16 06:00 55 05/28/16 05:30 83/55 05/28/16 05:00 87/48 05/28/16 05:00 87/48 05/28/16 04:30 84/44 05/28/16 04:00 85 05/28/16 04:00 98.2 85 14 87/48 97 05/28/16 03:00 81 81/53 05/28/16 02:30 81 81/53 05/28/16 02:15 72 83/51 05/28/16 02:00 82 05/28/16 00:00 74 05/28/16 00:00 98.6 74 12 94/57 96 05/27/16 21:50 98 21 05/27/16 20:00 98.0 95 32 99/61 99 05/27/16 20:00 82 05/27/16 18:00 88 18 107/58 97 05/27/16 17:35 97 21 05/27/16 17:23 86 10 119/82 98 05/27/16 17:19 98.3 98 17 136/78 96 05/27/16 15:30 98 16 126/81 95 Room Air 05/27/16 13:34 116 18 112/73 96 Room Air 05/27/16 12:45 97.7 127 17 96/76 97 I/O 05/27/16 05/27/16 05/27/16 05/28/16 05/28/16 05/28/16 07:00 15:00 23:00 07:00 15:00 23:00 Intake Total 1340 ml 1493 ml Output Total 300 ml Balance 1340 ml 1193 ml Intake Oral 240 ml 240 ml IV Total 1100 ml 1253 ml Output Urine Total 300 ml Result Diagram: 05/27/16 1345 05/28/16 0414 Imaging Last Impressions Renal Ultrasound 05/27/16 0000 Signed Impressions: Service Date/Time: Wednesday, May 27, 2016 15:59 - CONCLUSION: Negative renal sonogram. Bryan Matamoros MD Objective Remarks GENERAL: This is a well-nourished, well-developed patient, in no apparent distress. SKIN: No rashes, ecchymoses or lesions. Tattoos. HEAD: Atraumatic. Normocephalic. EYES: No scleral icterus. No injection or drainage. ENT: Tongue dry. NECK: Trachea midline. CARDIOVASCULAR: Regular rate and rhythm without murmurs, gallops, or rubs. RESPIRATORY: Clear to auscultation. Breath sounds equal bilaterally. No wheezes , rales, or rhonchi. GASTROINTESTINAL: Abdomen soft, non-tender, nondistended. MUSCULOSKELETAL: No lower extremity edema bilaterally. NEUROLOGICAL: Awake and alert. Motor grossly within normal limits. Normal speech. PSYCHIATRIC: Normal mood and affect. 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 Hemoglobin is concentrated at 18.2. ARF. Dry tongue. CK only minimally elevated at 389 though. Received 4 L boluses of IVF total. -Continue IVF at 100 mL/hr. GUERLINE: BUN/Cr 30/4.2 previously normal renal function on 04/16/16. UA personally reviewed with brown urine, 100 protein, 15 ketones, small occult blood, moderate bilirubin, 9-14 white blood cells, and 10-14 hyaline casts. Ratio indicate intrarenal, likely ATN. UDS positive for benzos but patient is on Klonopin but it is also positive for methamphetamines and patient is on no other medications. Renal US negative -Patient producing little urine output, but refuses Jung. It was explained to patient that if he does not continue to produce urine we will need to put a Jung in, RN advised to bladder scan if necessary. -Monitor intake and output -Continue IV hydration -Repeat am BMP -Nephrology consulted Electrolyte abnormalities: Mild hyponatremia and hypochloremia. Mild hypokalemia of 3.0. -Replete K+ and monitor BMP. Check BMP Mg level in the am. Hypotension secondary to dehydration. Continue IV hydration. Fluid bolus as needed. Alcohol abuse: Patient has been to the ED a couple of times this year for alcohol abuse. -[facility] protocol -EtOh withdrawal and seizure precautions -Thiamine and Folate Anxiety: Continue Klonopin only as needed at lower dose of 1 mg q 8h prn. RN to confirm DVT prevention: SCDs Discharge Planning Stable to be downgraded to regular telemetry Mauro Barker MD May 28, 2016 09:43
--- NOTE | 2016-05-28 13:49 | EKG ---
Date Performed: 05/27/2016 Time Performed: 15:44:00 PTAGE: 41 years EKG: Sinus rhythm Possible left atrial abnormality Poor R wave progression - probable normal variant Borderline ECG Co mpared to prior tracing no significant change PREVIOUS TRACING : 03/18/2016 22.07 DOCTOR: Simone Aldana Interpretating Date/Time 05/28/2016 13:47:24
--- NOTE | 2016-05-28 16:52 | MB ---
cc: KINZA ARTEAGA MD DATE OF CONSULTATION: 05/28/2016 REASON FOR CONSULTATION: Elevated BUN and creatinine for evaluation. HISTORY OF PRESENT ILLNESS This 41-year-old male with past medical history of anxiety, PTSD, who was admitted because of generalized weakness, feeling dizzy and decreased urine output. I was called to see the patient because of very high BUN and creatinine. The patient has BUN of 30 and creatinine of 4.2 on presentation. Previously he has creatinine level was 0.8-0.9 most of the time. According to the patient he works and Lantus came dizziness and has been working in the sun for a long time and was sweating a lot and he drank almost 40 bottles of water but he was feeling dizzy and this has been going on for the last two weeks and he has been getting more and more dizzy and having presyncopal episodes. There was no loss of consciousness but he was feeling that he was going to collapse. He denies any nausea. He vomited just once yesterday and there is no history of diarrhea, he noticed that he is passing less urine for the last 2 days. No history of fever. Occasionally takes Advil. PAST MEDICAL HISTORY: Anxiety. Posttraumatic stress disorder PAST SURGICAL HISTORY None. REVIEW OF SYSTEMS There is no history of fever. No sore throat. No headache. He has been feeling dizzy, weak, tired, had decreased energy. His appetite has been normal. He has no nausea but vomited just once yesterday. He has been sweating alot and working in the sun and staying in the sun most of the time and he is taking Advil off/on. I noticed that he has decreased urine output. There is no history of dysuria, hematuria or history of kidney stones. SOCIAL HISTORY: He smoked one and half pack per day. He drinks one to two beers every day. FAMILY HISTORY: The family history is noncontributory. ALLERGIES He has no known drug allergies. MEDICATIONS: 1. Currently he is on normal saline 100 an hour. 2. Folic acid 1 mg daily. 3. Thiamine 100 mg daily 4. Theragran 1 tablet daily. 5. Fluconazole 6. Flumazenil 0.2 mg p.r.n. 7. Ativan p.r.n. 8. Haldol p.r.n. 9. Narcan p.r.n. PHYSICAL EXAMINATION: IN GENERAL: On examination the patient is awake, alert. He is not in acute distress. VITAL SIGNS: His last blood pressure 96/63, temperature 98.1, blood pressure has been on the lower side and systolic has been in the 80s and 90s most of the time. HEAD, EYES, EARS, NOSE, AND THROAT: Pupils equal, round, reactive to light and accommodation, Nonicteric sclera, conjunctiva pale. NECK: The neck is supple. The jugular venous distention is not elevated. LUNGS: The patient has bilateral good air entry with no wheezing. HEART: S1, S2, regular rhythm. ABDOMEN: The abdomen is soft, lax. There is no tenderness. Bowel sounds positive status. EXTREMITIES: No pedal edema. INVESTIGATIONS: WBC count 8.6, hemoglobin 18.2, platelet count of 165, sodium 141. Potassium 3.0, chloride 105, bicarb 24.4, BUN 26 creatinine 1.5. Calcium 7.7, creatinine kinase 389 with MB of 1.4, INR is 1.0 but this is old. Urinalysis is showing protein of 100, few bacteria and WBC 9 to 14, Toxicology screen was positive for Amphetamine and Benzodiazepines. Urine culture showing less than 10,000 gram-positive saad. IMAGING STUDIES The patient had ultrasound the kidneys done which showed both kidneys are normal in size and there is no hydronephrosis. ASSESSMENT/PLAN 1. Acute kidney injury 2. Hypotension. 3. Dehydration. 4. Heat stroke. 5. Hypokalemia. 6. The patient had very high BUN and creatinine when he came in the blood pressure has been on the lower side. Acute kidney injury is a combination of hypotension with ATN and dehydration. At present his BUN and creatinine coming down, I agree with continuing IV fluid. He has slightly elevated CPK so there may be an element of Rabdomyelitis but the CPK level was not very high. He was taking nonsteroidal anti-inflammatory drugs which may have contributed to some extent so he was told to avoid taking that. Thank you for the consultation and I will follow the patient while he is in the hospital. MD ADRIANA Rodriguez/latha /4:05 PM /4:22 PM
[2016-05-29] VITALS: BP 127/76; PULSE 75; RESP 18; TEMP 97.8; O2SAT 98
[2016-05-29] MEDS: clonazePAM 1 MG TAB PO PRN ×2 (01:58→11:40)
[2016-05-29 04:00] VITALS: BP 112/64; PULSE 52; RESP 20; TEMP 96.7; O2SAT 96
[2016-05-29 08:14] LABS: MAGNESIUM 1.7 MG/DL (1.5-2.5); POTASSIUM 3.9 MEQ/L (3.5-5.1)
[2016-05-29 08:39] VITALS: O2SAT 93
[2016-05-29] MEDS: SODIUM CHLORIDE 0.9% FLUSH 10 ML FLUSH IV FLUSH SCH (09:00)
[2016-05-29] MEDS ORDERED: FOLI1TAB4 PO (11:36)
[2016-05-29] MEDS ORDERED: VITA100T2 PO (11:36)
[2016-05-29] MEDS: THIAMINE HCL 100 MG TAB PO SCH (11:40)
[2016-05-29] MEDS: FOLIC ACID 1 MG TAB PO SCH (11:40)
[2016-05-29] MEDS: SODIUM CHLOR 0.9% 1000 ML INJ 1,000 ML IV SCH (11:40)
[2016-05-29] MEDS: MULTIVITAMINS/MINERALS THERAPEUTIC TAB PO SCH (11:40)
--- NOTE | 2016-05-29 11:43 | HHI.PR ---
Subjective Remarks Follow up for GUERLINE. Patient is doing well. Tolerating diet. No acute concerns. Wants to go home. Objective Vitals Vital Signs Date Time Temp Pulse Resp B/P Pulse Ox O2 Delivery O2 Flow Rate FiO2 05/29/16 08:39 93 21 05/29/16 04:00 96.7 52 20 112/64 96 05/29/16 00:00 97.8 75 18 127/76 98 05/28/16 23:00 58 05/28/16 20:00 98.8 62 18 122/67 99 05/28/16 20:00 62 05/28/16 20:00 96 21 05/28/16 16:15 80 05/28/16 16:15 98.5 62 17 99/61 99 05/28/16 13:00 68 17 96/63 05/28/16 12:30 62 18 92/62 05/28/16 12:00 98.1 62 17 92/63 05/28/16 12:00 70 I/O 05/28/16 05/28/16 05/28/16 05/29/16 05/29/16 05/29/16 07:00 15:00 23:00 07:00 15:00 23:00 Intake Total 1493 ml 2205 ml 800 ml 750 ml Output Total 300 ml 0 ml 0 ml Balance 1193 ml 2205 ml 800 ml 750 ml Intake Oral 240 ml 700 ml IV Total 1253 ml 1505 ml 800 ml 750 ml Output Urine Total 300 ml 0 ml 0 ml Result Diagram: 05/27/16 1345 05/29/16 0740 Imaging Last Impressions Renal Ultrasound 05/27/16 0000 Signed Impressions: Service Date/Time: Friday, May 27, 2016 15:59 - CONCLUSION: Negative renal sonogram. Bryan Matamoros MD Objective Remarks GENERAL: AOX3, NAD. SKIN: Warm and dry. HEAD: Normocephalic. EYES: No scleral icterus. No injection or drainage. NECK: Supple, trachea midline. No JVD or lymphadenopathy. CARDIOVASCULAR: Regular rate and rhythm without murmurs, gallops, or rubs. RESPIRATORY: Breath sounds equal bilaterally. No accessory muscle use. GASTROINTESTINAL: Abdomen soft, non-tender, nondistended. MUSCULOSKELETAL: No cyanosis, or edema. BACK: Nontender without obvious deformity. No CVA tenderness. 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 Hemoglobin is concentrated at 18.2. ARF. Dry tongue. CK only minimally elevated at 389 though. Received 4 L boluses of IVF total. -Continued IVF at 100 mL/hr. GUERLINE: BUN/Cr 30/4.2 previously normal renal function on 04/16/16. UA personally reviewed with brown urine, 100 protein, 15 ketones, small occult blood, moderate bilirubin, 9-14 white blood cells, and 10-14 hyaline casts. Ratio indicate intrarenal, likely ATN. UDS positive for benzos but patient is on Klonopin but it is also positive for methamphetamines and patient is on no other medications. Renal US negative GUERLINE resolved. Electrolyte abnormalities: Mild hyponatremia and hypochloremia. Mild hypokalemia of 3.0. -Repleted with KCL. Potassium normal now Hypotension - resolved. Alcohol abuse: Patient has been to the ED a couple of times this year for alcohol abuse. -[facility] protocol -EtOh withdrawal and seizure precautions -Thiamine and Folate Anxiety: Continue Klonopin only as needed at lower dose of 1 mg q 8h prn. RN to confirm Discharge patient to home Condition on discharge: Improved Regular Diet as tolerated Ad Kayla activity Rx written: Thiamine, Folic acid. Follow-up with primary care physician within one week. Davie Sanchez DO May 29, 2016 11:43 am
== END 2016-05-29 13:21 | disposition home or self-care (01) | DRG 922 ==
LOC: PHED 12:39 → PHEDA 15:38 → PHICU 17:08 → PH3A 05-28 22:50
PROVIDERS: ADMIT Hospitalist; ATTEND Hospitalist
DX: T67.0XXA Heatstroke and sunstroke, initial encounter (principal); N17.0 Acute kidney failure with tubular necrosis; E87.8 Other disorders of electrolyte and fluid balance, not elsewhere classified; I95.9 Hypotension, unspecified; E87.1 Hypo-osmolality and hyponatremia; Y92.9 Unspecified place or not applicable; Y93.89 Activity, other specified; X30.XXXA Exposure to excessive natural heat, initial encounter; R11.10 Vomiting, unspecified; E87.6 Hypokalemia; F17.210 Nicotine dependence, cigarettes, uncomplicated; F43.10 Post-traumatic stress disorder, unspecified; Z86.14 Personal history of Methicillin resistant Staphylococcus aureus infection; F10.10 Alcohol abuse, uncomplicated; E86.0 Dehydration; Y99.9 Unspecified external cause status
CPT/HCPCS: 76775; 80048; 80307; 81001; 82550; 82552; 83735; 85025; 87086; 93005; 96361; 96374; 96375; J2060; J2405; J3480; J7030; J7040; J7050

== ENCOUNTER 2016-07-13 01:47 | Emergency (ER) | payer MEDICAID, OTHER ==
[~2016-07-13] VITALS: Ht 177.8 cm; Wt 82.0 kg
[~2016-07-13 01:47] MED LIST changes: -K-TA10TA PO; -LEXA20TA PO
[2016-07-13 01:58] VITALS: BP 127/94; PULSE 100; RESP 16; TEMP 98.6; O2SAT 96
--- NOTE | 2016-07-13 02:14 | PD ---
HPI Chief Complaint: Psychiatric Symptoms Time Seen by Provider: 02:10 Travel History International Travel<30 days: No Contact w/Intl Traveler<30days: No History of Present Illness HPI Patient is a 41-year-old male presenting to the banner [place] act for suicidal ideations. Patient denies suicidal ideation stating that his family gained up against him after he called 911 regarding his mother making suicidal ideations. Patient denies any previous suicide attempt. He does report a history of PTSD secondary to being in solitary confinement in assisted and seeing violent acts while in assisted. Patient takes Klonopin 3 times a day for this. He endorses daily tobacco use, daily alcohol use one to 2 beers, he recently tried methamphetamine while he was getting a tattoo to help him. He denies any physical complaints at this time. He denies any auditory or visual hallucinations. PFSH Past Medical History Autoimmune Disease: No Anxiety: Yes Depression: Yes (PTSD) Cancer: No Cardiovascular Problems: No Chemotherapy: No Diabetes: No Diminished Hearing: No Endocrine: No Gastrointestinal Disorders: Yes Genitourinary: Yes Immune Disorder: No Musculoskeletal: No Neurologic: No Psychiatric: Yes (HX OF DEPRESSION, AND PTSD, NIGHT TERRORS) Reproductive: No Respiratory: No Immunizations Current: Yes Radiation Therapy: No Renal Failure: Yes (ARF) Thyroid Disease: No Past Surgical History Other Surgery: Yes ((R) leg) Social History Alcohol Use: Yes Tobacco Use: Yes Substance Use: No Allergies-Medications (Allergen,Severity, Reaction): Coded Allergies: *MDRO Multi-Drug Resistant Organism (Verified Adverse Reaction, Unknown, ) MRSA arm wound 09/2014. Reported Meds & Prescriptions Reported Meds & Active Scripts Active Klonopin (Clonazepam) 1 Mg Tab 2 Mg PO Q8HR Review of Systems Except as stated in HPI: all other systems reviewed are Neg Psychiatric: Positive: Suicidal Ideations Physical Exam Narrative GENERAL: Well-developed, well-nourished, alert male. Resting comfortably in no acute distress. Appears intoxicated SKIN: Focused skin assessment warm/dry. HEAD: Atraumatic. Normocephalic. EYES: Pupils equal and round. No scleral icterus. No injection or drainage. ENT: No nasal bleeding or discharge. Mucous membranes pink and moist. NECK: Trachea midline. No JVD. CARDIOVASCULAR: Regular rate and rhythm. No murmur appreciated. RESPIRATORY: No accessory muscle use. Clear to auscultation. Breath sounds equal bilaterally. GASTROINTESTINAL: Abdomen soft, non-tender, nondistended. Hepatic and splenic margins not palpable. MUSCULOSKELETAL: No obvious deformities. No clubbing. No cyanosis. No edema. NEUROLOGICAL: Awake and alert. No obvious cranial nerve deficits. Motor grossly within normal limits. Normal speech. PSYCHIATRIC: Appropriate mood and affect; insight and judgment normal. Data Data Last Documented VS Vital Signs Date Time Temp Pulse Resp B/P Pulse Ox O2 Delivery O2 Flow Rate FiO2 07/13/16 02:06 101 16 07/13/16 01:58 98.6 127/94 96 Orders Complete Blood Count With Diff (07/13/16 02:08) Comprehensive Metabolic Panel (07/13/16 02:08) Psych Screen (07/13/16 02:08) Drug Screen, Random Urine (07/13/16 02:08) Alcohol (Ethanol) (07/13/16 02:08) Salicylates (Aspirin) (07/13/16 02:08) Tylenol (Acetaminophen) (07/13/16 02:08) Labs Laboratory Tests Test 07/13/16 07/13/16 02:00 05:15 White Blood Count 9.4 TH/MM3 Red Blood Count 4.15 MIL/MM3 Hemoglobin 13.9 GM/DL Hematocrit 40.4 % Mean Corpuscular Volume 97.5 FL Mean Corpuscular Hemoglobin 33.5 PG Mean Corpuscular Hemoglobin 34.4 % Concent Red Cell Distribution Width 14.1 % Platelet Count 183 TH/MM3 Mean Platelet Volume 9.1 FL Neutrophils (%) (Auto) 51.3 % Lymphocytes (%) (Auto) 35.7 % Monocytes (%) (Auto) 10.0 % Eosinophils (%) (Auto) 2.0 % Basophils (%) (Auto) 1.0 % Neutrophils # (Auto) 4.8 TH/MM3 Lymphocytes # (Auto) 3.4 TH/MM3 Monocytes # (Auto) 0.9 TH/MM3 Eosinophils # (Auto) 0.2 TH/MM3 Basophils # (Auto) 0.1 TH/MM3 CBC Comment AUTO DIFF Differential Comment AUTO DIFF CONFIRMED Platelet Estimate LOW Platelet Morphology Comment NORMAL Sodium Level 145 MEQ/L Potassium Level 3.4 MEQ/L Chloride Level 111 MEQ/L Carbon Dioxide Level 27.7 MEQ/L Anion Gap 6 MEQ/L Blood Urea Nitrogen 10 MG/DL Creatinine 0.70 MG/DL Estimat Glomerular Filtration 124 ML/MIN Rate Random Glucose 94 MG/DL Calcium Level 8.5 MG/DL Total Bilirubin 0.9 MG/DL Aspartate Amino Transf 122 U/L (AST/SGOT) Alanine Aminotransferase 124 U/L (ALT/SGPT) Alkaline Phosphatase 97 U/L Total Protein 7.6 GM/DL Albumin 3.7 GM/DL Salicylates Level 2.3 MG/DL Acetaminophen Level LESS THAN 2.0 MCG/ML Ethyl Alcohol Level 125 MG/DL Urine Opiates Screen NEG Urine Barbiturates Screen NEG Urine Amphetamines Screen POS Urine Benzodiazepines Screen POS Urine Cocaine Screen NEG Urine Cannabinoids Screen NEG MDM Medical Decision Making Medical Screen Exam Complete: Yes Emergency Medical Condition: Yes Interpretation(s) Laboratory Tests Test 07/13/16 02:00 White Blood Count 9.4 TH/MM3 Red Blood Count 4.15 MIL/MM3 Hemoglobin 13.9 GM/DL Hematocrit 40.4 % Mean Corpuscular Volume 97.5 FL Mean Corpuscular Hemoglobin 33.5 PG Mean Corpuscular Hemoglobin 34.4 % Concent Red Cell Distribution Width 14.1 % Platelet Count 183 TH/MM3 Mean Platelet Volume 9.1 FL Neutrophils (%) (Auto) 51.3 % Lymphocytes (%) (Auto) 35.7 % Monocytes (%) (Auto) 10.0 % Eosinophils (%) (Auto) 2.0 % Basophils (%) (Auto) 1.0 % Neutrophils # (Auto) 4.8 TH/MM3 Lymphocytes # (Auto) 3.4 TH/MM3 Monocytes # (Auto) 0.9 TH/MM3 Eosinophils # (Auto) 0.2 TH/MM3 Basophils # (Auto) 0.1 TH/MM3 CBC Comment AUTO DIFF Differential Comment AUTO DIFF CONFIRMED Platelet Estimate LOW Platelet Morphology Comment NORMAL Sodium Level 145 MEQ/L Potassium Level 3.4 MEQ/L Chloride Level 111 MEQ/L Carbon Dioxide Level 27.7 MEQ/L Anion Gap 6 MEQ/L Blood Urea Nitrogen 10 MG/DL Creatinine 0.70 MG/DL Estimat Glomerular Filtration 124 ML/MIN Rate Random Glucose 94 MG/DL Calcium Level 8.5 MG/DL Total Bilirubin 0.9 MG/DL Aspartate Amino Transf 122 U/L (AST/SGOT) Alanine Aminotransferase 124 U/L (ALT/SGPT) Alkaline Phosphatase 97 U/L Total Protein 7.6 GM/DL Albumin 3.7 GM/DL Salicylates Level 2.3 MG/DL Acetaminophen Level LESS THAN 2.0 MCG/ML Ethyl Alcohol Level 125 MG/DL Vital Signs Date Time Temp Pulse Resp B/P Pulse Ox O2 Delivery O2 Flow Rate FiO2 07/13/16 02:06 101 16 07/13/16 01:58 98.6 100 16 127/94 96 Differential Diagnosis Mood disorder versus substance abuse versus depression versus suicidal ideations versus PTSD versus other Narrative Course Patient is a 41-year-old male presenting to emergency Department under [place] act for making suicidal statements. She denies making any such statements. Patient's vital signs are stable, he is pleasant and cooperative at this time. Labs and psych screening ordered and pending. Patient was educated on the process of medical clearance and psychiatric evaluation. CBC is unremarkable Chemistry with a potassium of 3.4, elevated AST and ALT 122/124 Salicylate 2.3, acetaminophen less than 2.0, alcohol level is 125 Patient is observed resting comfortably, sleeping. Patient is medically cleared for psychiatric evaluation at this time. Urine drug screen is positive for benzodiazepines and methamphetamines Diagnosis Primary Impression: Medical clearance for psychiatric admission Additional Impressions: Acute alcohol intoxication Qualified Code: F10.920 - Acute alcohol intoxication, uncomplicated Suicidal ideations Condition: Stable Zo Penny [facility] Jul 13, 2016 02:14
[2016-07-13 02:22] LABS: AUTOMATED NEUTROPHIL # 4.8 TH/MM3 (1.8-7.7); BASOPHIL # 0.1 TH/MM3 (0-0.2); EOSINOPHIL # 0.2 TH/MM3 (0-0.4); HEMATOCRIT 40.4 % (39.0-51.0); LYMPH % 35.7 % (9.0-44.0); LYMPHOCYTE # 3.4 TH/MM3 (1.0-4.8); MEAN CELL VOLUME 97.5 FL (80.0-100.0); MEAN CORPUSCULAR HEMOGLOBIN 33.5 PG (27.0-34.0); MEAN CORPUSCULAR HGB CONC 34.4 % (32.0-36.0); NEUT % 51.3 % (16.0-70.0); PLATELET COUNT 183 TH/MM3 (150-450); RED BLOOD COUNT 4.15 MIL/MM3 (4.50-5.90); RED CELL DISTRIBUTION WIDTH 14.1 % (11.6-17.2); WHITE BLOOD COUNT 9.4 TH/MM3 (4.0-11.0)
[2016-07-13 02:43] LABS: ANION GAP 6 MEQ/L (5-15)
[2016-07-13 02:48] LABS: HEMO FLAGS AUTO DIFF; PLATELET ESTIMATE SMEAR LOW (NORMAL); PLATELET MORPHOLOGY NORMAL (NORMAL); SCAN/DIFF AUTO DIFF CONFIRMED
[2016-07-13 02:57] LABS: ALKALINE PHOSPHATASE 97 U/L (45-117); ALT (GPT) 124 U/L (12-78); AST (GOT) 122 U/L (15-37); BICARBONATE 27.7 MEQ/L (21.0-32.0); BLOOD UREA NITROGEN 10 MG/DL (7-18); CHLORIDE 111 MEQ/L (98-107); GLOMERULAR FILTRATION RATE 124 ML/MIN (>89); POTASSIUM 3.4 MEQ/L (3.5-5.1); SODIUM (NA) 145 MEQ/L (136-145); TOTAL BILIRUBIN ADULT 0.9 MG/DL (0.2-1.0)
[2016-07-13 02:59] LABS: ACETAMINOPHEN LESS THAN 2.0 MCG/ML (10.0-30.0)
[2016-07-13 05:33] LABS: AMPHETAMINE, URINE POS (NEG); BARBITURATES, URINE NEG (NEG); COCAINE, URINE NEG (NEG)
[2016-07-13 07:34] VITALS: BP 122/74; PULSE 87; RESP 20; TEMP 98.1; O2SAT 96
[2016-07-13 08:10] LABS: BLOOD, URINE NEG (NEG); GLUCOSE,URINE NEG (NEG); KETONE, URINE NEG (NEG); NITRITE,URINE NEG (NEG); PH, URINE 5.5 (5.0-8.5)
[2016-07-13 08:25] LABS: BACTERIA, URINE FEW /hpf; COMMENT (UR) CULT NOT INDICATED; CULTURE IF INDICATED CULT NOT INDICATED; URINE COLOR LIGHT-BROWN (YELLW/STRAW)
[2016-07-13 11:59] VITALS: BP 158/107; PULSE 84; RESP 18; TEMP 98.6; O2SAT 98
[2016-07-13 16:32] VITALS: BP 148/85; PULSE 82; RESP 16; O2SAT 98
--- NOTE | 2016-07-13 16:47 | PD ---
History of Present Illness Chief Complaint: Psychiatric Symptoms Time Seen by Provider: 16:45 Travel History International Travel<30 Days: No Contact w/Intl Traveler<30days: No Known affected area: No Legal Status Legal Status: [place] Act [place] Act Signed By: Luisa [place] Act Comment: Signed by [employer] Officer Hola Anthony #[id number]. History of Present Illness: 41-year-old white male with known multiyear history of alcohol abuse [place] acted for suicidal threats. At this time the patient is nonintoxicated clinically. He is denying any suicidal or homicidal ideation, plan or intent. His cognition is intact and he is verbally michelle for safety. He has no psychotic symptoms. He is calm and pleasant and cooperative. PFSH Past Medical History Autoimmune Disease: No Anxiety: Yes Depression: Yes (PTSD) Cancer: No Cardiovascular Problems: No Chemotherapy: No Diabetes: No Diminished Hearing: No Endocrine: No Gastrointestinal Disorders: Yes Genitourinary: Yes Immune Disorder: No Musculoskeletal: No Neurologic: No Psychiatric: Yes (HX OF DEPRESSION, AND PTSD, NIGHT TERRORS) Reproductive: No Respiratory: No Immunizations Current: Yes Radiation Therapy: No Renal Failure: Yes (ARF) Thyroid Disease: No Past Surgical History Other Surgery: Yes ((R) leg) Psychiatric History Psychiatric History Hx Psychiatric Treatment: Per pt, he sees the [facility] [facility] in Dr.Gary Moreno' office every other month. Stated that he thinks the name is Kathie. He stated that his next appt is July 22. He maintains that he is currently being prescribed Klonopin 2mg TID PRN and Lexapro. He stated that he is not sure of the dosage of Lexapro as he is noncompliant with it. He does not like the way it makes him feel. He stated that they are filled at [facility]. He maintains that his Depression was due ot boredom. And maintains that he was no longer depressed when he began to working again. History of Inpatient Treatment: Yes Social History Hx Alcohol Use: Yes Hx Tobacco Use: Yes Hx Substance Use: Yes Substance Use Type: Alcohol, Amphetamines-Stimulants, Nicotine/Cigarettes, Benzos (Valium,Xanax) Other Substances Used: Pt has a hx of heroin abuse, states he hasn't used in years. 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 Reported Meds & Prescriptions Reported Meds & Active Scripts Active Klonopin (Clonazepam) 1 Mg Tab 2 Mg PO Q8HR Review of Systems Except as stated in HPI: all other systems reviewed are Neg Exam Alert: Yes [place]: Person, Place, Date, Situation Mood: Calm Affect: Appropriate Speech: Clear, Logical Eye Contact: Normal Memory Intact: Immediate, Recent, Remote Insight/Judgement Adequate MDM Medical Decision Making Medical Record Reviewed: Yes Assessment/Plan Patient does not meet [place] act criteria at this time and he certainly doesn't meet inpatient psychiatric criteria. Orders Complete Blood Count With Diff (07/13/16 02:08) Comprehensive Metabolic Panel (07/13/16 02:08) Psych Screen (07/13/16 02:08) Drug Screen, Random Urine (07/13/16 02:08) Alcohol (Ethanol) (07/13/16 02:08) Salicylates (Aspirin) (07/13/16 02:08) Tylenol (Acetaminophen) (07/13/16 02:08) Diet Regular Basic (07/13/16 Breakfast) Urinalysis - C+S If Indicated (07/13/16 07:39) Results Vital Signs Date Time Temp Pulse Resp B/P Pulse Ox O2 Delivery O2 Flow Rate FiO2 07/13/16 16:32 82 16 148/85 98 Room Air 07/13/16 11:59 98.6 84 18 158/107 98 Room Air 07/13/16 07:34 98.1 87 20 122/74 96 Room Air 07/13/16 07:33 18 07/13/16 02:06 101 16 07/13/16 01:58 98.6 100 16 127/94 96 Laboratory Tests Test 07/13/16 07/13/16 07/13/16 02:00 05:15 07:43 White Blood Count 9.4 Red Blood Count 4.15 Hemoglobin 13.9 Hematocrit 40.4 Mean Corpuscular Volume 97.5 Mean Corpuscular Hemoglobin 33.5 Mean Corpuscular Hemoglobin 34.4 Concent Red Cell Distribution Width 14.1 Platelet Count 183 Mean Platelet Volume 9.1 Neutrophils (%) (Auto) 51.3 Lymphocytes (%) (Auto) 35.7 Monocytes (%) (Auto) 10.0 Eosinophils (%) (Auto) 2.0 Basophils (%) (Auto) 1.0 Neutrophils # (Auto) 4.8 Lymphocytes # (Auto) 3.4 Monocytes # (Auto) 0.9 Eosinophils # (Auto) 0.2 Basophils # (Auto) 0.1 CBC Comment AUTO DIFF Differential Comment AUTO DIFF CONFIRMED Platelet Estimate LOW Platelet Morphology Comment NORMAL Sodium Level 145 Potassium Level 3.4 Chloride Level 111 Carbon Dioxide Level 27.7 Anion Gap 6 Blood Urea Nitrogen 10 Creatinine 0.70 Estimat Glomerular Filtration 124 Rate Random Glucose 94 Calcium Level 8.5 Total Bilirubin 0.9 Aspartate Amino Transf 122 (AST/SGOT) Alanine Aminotransferase 124 (ALT/SGPT) Alkaline Phosphatase 97 Total Protein 7.6 Albumin 3.7 Salicylates Level 2.3 Acetaminophen Level LESS THAN 2.0 Ethyl Alcohol Level 125 Urine Opiates Screen NEG Urine Barbiturates Screen NEG Urine Amphetamines Screen POS Urine Benzodiazepines Screen POS Urine Cocaine Screen NEG Urine Cannabinoids Screen NEG Urine Color LIGHT-BROWN Urine Turbidity CLOUDY Urine pH 5.5 Urine Specific [place] 1.028 Urine Protein 30 Urine Glucose (UA) NEG Urine Ketones NEG Urine Occult Blood NEG Urine Nitrite NEG Urine Bilirubin NEG Urine Urobilinogen 8.0 Urine Leukocyte Esterase NEG Urine Amorphous Sediment MOD Urine Bacteria FEW Microscopic Urinalysis Comment CULT NOT INDICATED Diagnosis Primary Impression: Alcohol abuse Departure Forms: Tests/Procedures Patient Instructions: General Instructions, Alcohol Intoxication (ED), Suicide Prevention for Adults (ED) Disposition: 01 DISCHARGE HOME Condition: Stable Nura Aguilar MD Jul 13, 2016 16:47
== END 2016-07-13 16:39 | disposition home or self-care (01) ==
LOC: NEPD 01:47
DX: F10.129 Alcohol abuse with intoxication, unspecified (principal); F43.10 Post-traumatic stress disorder, unspecified; F41.9 Anxiety disorder, unspecified; F51.4 Sleep terrors [night terrors]; Z72.0 Tobacco use; Y90.6 Blood alcohol level of 120-199 mg/100 ml
CPT/HCPCS: 80053; 80307; 81001; 85025; 99284

== ENCOUNTER 2016-07-24 17:03 | Emergency (ER) | payer MEDICAID, OTHER ==
[~2016-07-24] VITALS: Ht 175.3 cm; Wt 87.4 kg
[~2016-07-24 17:03] MED LIST changes: -FOLI1TAB4 PO; -VITA100T2 PO
[2016-07-24 17:12] VITALS: BP 135/88; PULSE 93; RESP 16; TEMP 98.9; O2SAT 97
[2016-07-24] MEDS ORDERED: BACT800T5 PO (17:24)
--- NOTE | 2016-07-24 17:26 | PD ---
HPI Chief Complaint: Skin Problem Time Seen by Provider: 17:14 Travel History International Travel<30 days: No Contact w/Intl Traveler<30days: No Traveled to known affect area: No History of Present Illness HPI This 41-year-old male is complaining of a painful swollen area on his left arm. He has a history of substance abuse and the injected methamphetamine about a week ago. 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 He does drink alcohol he has a history of psychiatric problems PFSH Past Medical History Autoimmune Disease: No Anxiety: Yes Depression: Yes (PTSD) Cancer: No Cardiovascular Problems: No Chemotherapy: No Diabetes: No Diminished Hearing: No Endocrine: No Gastrointestinal Disorders: Yes Genitourinary: Yes Immune Disorder: No Musculoskeletal: No Neurologic: No Psychiatric: Yes (HX OF DEPRESSION, AND PTSD, NIGHT TERRORS) Reproductive: No Respiratory: No Immunizations Current: Yes Radiation Therapy: No Renal Failure: Yes (ARF) Thyroid Disease: No Tetanus Vaccination: < 5 Years Influenza Vaccination: No Past Surgical History Other Surgery: Yes ((R) leg) Social History Alcohol Use: Yes (OCC) Tobacco Use: Yes (1 PK EVERY 3 DAYS) Substance Use: Yes (METH) Allergies-Medications (Allergen,Severity, Reaction): Coded Allergies: *MDRO Multi-Drug Resistant Organism (Verified Adverse Reaction, Unknown, ) MRSA arm wound 09/2014. Reported Meds & Prescriptions Reported Meds & Active Scripts Active Bactrim DS (Sulfamethoxazole-Trimethoprim) 800-160 Mg Tab 1 Tab PO BID Klonopin (Clonazepam) 1 Mg Tab 2 Mg PO Q8HR Review of Systems General / Constitutional: No: Fever, Chills Eyes: No: Diploplia, Blurred Vision HENT: No: Headaches, Vertigo, Lightheadedness Cardiovascular: No: Chest Pain or Discomfort Respiratory: No: Cough Gastrointestinal: No: Nausea, Vomiting Genitourinary: No: Urgency, Frequency Skin: Positive Rash, Positive Lumps Physical Exam Narrative GENERAL: Well-developed male SKIN: Focused skin assessment warm/dry. HEAD: Atraumatic. Normocephalic. EYES: Pupils equal and round. No scleral icterus. No injection or drainage. ENT: No nasal bleeding or discharge. Mucous membranes pink and moist. NECK: Trachea midline. No JVD. CARDIOVASCULAR: Regular rate and rhythm. No murmur appreciated. RESPIRATORY: No accessory muscle use. Clear to auscultation. Breath sounds equal bilaterally. GASTROINTESTINAL: Abdomen soft, non-tender, nondistended. Hepatic and splenic margins not palpable. MUSCULOSKELETAL: No obvious deformities. No clubbing. No cyanosis. No edema. In the antecubital fossa there is an area of erythema and swelling system with an abscess NEUROLOGICAL: Awake and alert. No obvious cranial nerve deficits. Motor grossly within normal limits. Normal speech. PSYCHIATRIC: Appropriate mood and affect; insight and judgment normal. Data Data Last Documented VS Vital Signs Date Time Temp Pulse Resp B/P Pulse Ox O2 Delivery O2 Flow Rate FiO2 07/24/16 17:12 98.9 93 16 135/88 97 Orders Lidocaine 1% Inj (Xylocaine 1% Inj) (07/24/16 17:30) Lidocaine 1% Inj (50 Ml) (Xylocaine 1% I (07/24/16 17:30) [facility] Medical Decision Making Medical Screen Exam Complete: Yes Emergency Medical Condition: Yes Medical Record Reviewed: Yes Differential Diagnosis Differential includes abscess, cellulitis Narrative Course I&D was performed and moderate amount of pus obtained. Packing was inserted. Patient will be placed on Bactrim Procedures Procedure Narrative Procedure was discussed with the patient and verbal consent obtained. The area was anesthetized with 1% lidocaine. A 1 cm incision was made and pus was expressed from the wound. Approximately 10 inches of quarter-inch packing inserted into the wound. Patient tolerated the procedure well Diagnosis Primary Impression: Abscess of forearm, left Additional Instructions: Packing removal in 2 days Scripts Sulfamethoxazole-Trimethoprim (Bactrim DS)800-160 Mg Tab1 Tab PO BID #14 TAB Ref 0 Prov:Lyndon Laguna MD 07/24/16 Disposition: 01 DISCHARGE HOME Condition: Stable Lyndon Laguna MD Jul 24, 2016 17:26
[2016-07-24] MEDS ORDERED: LIDOCAINE HCL 1% 30 ML VIAL INFIL ONE (17:30)
[2016-07-24] MEDS ORDERED: LIDOCAINE HCL 1% 50 ML VIAL INFIL ONE (17:30)
== END 2016-07-24 17:51 | disposition home or self-care (01) ==
LOC: PHED 17:03
DX: L02.414 Cutaneous abscess of left upper limb (principal); N17.9 Acute kidney failure, unspecified
CPT/HCPCS: 10061

== ENCOUNTER → 2016-08-02 | Emergency (ER) | payer SELFPAY ==
[~2016-08-02] MED LIST changes: +BACT800T5 PO; +DEXTROSE 50% IN WATER 50 ML SYRINGE IV ONE
--- NOTE | 2016-08-02 18:26 | PD ---
HPI Chief Complaint: cardiopulmonary arrest Time Seen by Provider: 18:16 Travel History International Travel<30 days: No Contact w/Intl Traveler<30days: No Traveled to known affect area: No History of Present Illness HPI Patient's 41 years old and arrives in cardiac arrest. EMS reports the patient was found down and unresponsive in his household with an IV needle in his arm. The patient's father found the patient lying on the ground unresponsive. He called EMS and started performing CPR. On scene the patient had no pulse. ACLS protocol was initiated and the following medications were given including 2 mg Narcan, 3 rounds of epinephrine, 300 mg amiodarone, 2 additional milligrams Narcan, 20 mg etomidate, 2 mg Ativan 50 mEq sodium bicarbonate. Evidently the patient did have a run of findings in V. fib resulting in 1 to fibrillation. EMS notes the patient remained asystolic throughout prehospital course. A left interosseous line was established. Attempted intubation by EMS failed secondary clenched jaw. When the patient arrived to the ER he had fixed and dilated pupils. No pulse was appreciable throughout the ER resuscitative course. 2 hours prior to EMS arrival the patient was last seen normal physician at duration of pulselessness is unknown however at least 30 minutes prior to cessation of CPR in the ER. The patient arrives with dependent lividity. The code was terminated at 6:05 PM. Patient has been in this ER numerous times and is known to have suffered with opioid dependence. PFSH Past Medical History Autoimmune Disease: No Anxiety: Yes Depression: Yes (PTSD) Cancer: No Cardiovascular Problems: No Chemotherapy: No Diabetes: No Diminished Hearing: No Endocrine: No Gastrointestinal Disorders: Yes Genitourinary: Yes Immune Disorder: No Musculoskeletal: No Neurologic: No Psychiatric: Yes (HX OF DEPRESSION, AND PTSD, NIGHT TERRORS) Reproductive: No Respiratory: No Immunizations Current: Yes Radiation Therapy: No Renal Failure: Yes (ARF) Thyroid Disease: No Past Surgical History Other Surgery: Yes ((R) leg) Social History Alcohol Use: Yes (OCC) Tobacco Use: Yes (1 PK EVERY 3 DAYS) Substance Use: Yes (METH) Allergies-Medications (Allergen,Severity, Reaction): Coded Allergies: *MDRO Multi-Drug Resistant Organism (Verified Adverse Reaction, Unknown, ) MRSA arm wound 09/2014. Reported Meds & Prescriptions Reported Meds & Active Scripts Active Bactrim DS (Sulfamethoxazole-Trimethoprim) 800-160 Mg Tab 1 Tab PO BID Klonopin (Clonazepam) 1 Mg Tab 2 Mg PO Q8HR Review of Systems Except as stated in HPI: all other systems reviewed are Neg Physical Exam Exam Limitations: Clinical Condition, Altered Mental Status Narrative GENERAL: 41 M, unresponsive, well-nourished well-developed pupils fixed and dilated SKIN: Grossly intact. There is delayed capillary refill HEAD: Atraumatic. Normocephalic. EYES: Pupils fixed and dilated. ENT: No nasal bleeding or discharge. Mucous membranes dry. The jaw is clenched. NECK: Trachea midline. No JVD. CARDIOVASCULAR: Asystole. RESPIRATORY: Apnea. GASTROINTESTINAL: Soft. MUSCULOSKELETAL: Left tibia interosseous. No gross deformity otherwise. NEUROLOGICAL: GCS 3. PSYCHIATRIC: Unable to assess MDM Medical Decision Making Medical Screen Exam Complete: Yes Emergency Medical Condition: Yes Medical Record Reviewed: Yes Differential Diagnosis Cardiopulmonary arrest, anoxic organ failure, IV drug overdose Narrative Course Please refer to the history of present illness. The patient was pronounced at 6 :05 PM. Diagnosis Primary Impression: Additional Instructions: Not applicable Med/Other Pt SpecificInfo: Other (not applicable) Disposition: 20 Condition: Bora Jc MD Aug 02, 2016 18:26
== END | disposition expired ==
LOC: PHED 18:09
DX: I46.9 Cardiac arrest, cause unspecified (principal); F11.20 Opioid dependence, uncomplicated; N19 Unspecified kidney failure; Z72.0 Tobacco use; Z86.59 Personal history of other mental and behavioral disorders; Z87.19 Personal history of other diseases of the digestive system; Z87.448 Personal history of other diseases of urinary system
CPT/HCPCS: 99283